=== PATIENT | female | born 1950 | race Caucasian/White ===

== ENCOUNTER → 2018-08-03 14:16 | Outpatient (CLI) | payer MEDICARE, SELFPAY ==
[2018-08-03 15:32] LABS: Absolute Lymphocyte Count 1.39 X10^3/ul (0.83-4.51); Absolute Neutrophil Count 4.5 X10^3/uL (2.0-7.7); Basophil# 0.02 X10^3/uL; Basophil% 0.3 % (0-1); Eosinophils% 2.9 % (0-5); Hematocrit 43.7 % (37-47); Hemoglobin 14.4 g/dl (12.0-15.0); Lymphocyte # 1.39 X10^3/ul (4.0); Lymphocyte % 20.4 % (19-41); Mean Corpuscular Hgb 30.5 pg (27.0-32.0); Mean Corpuscular Volume 92.6 fL (81-99); Mean Platelet Vol. 10.8 fl (6.2-12.0); Monocyte# 0.68 X10^3/uL; Neutrophil # 4.49 X10^3/uL (2.7-7.7); POSITIVE COUNT NO; POSITIVE DIFFERENTIAL NO; POSITIVE MORPHOLOGY NO; Platelet Count 264 K/mm3 (150-450); RBC Distribution Width CV 12.4 % (11.6-14.6); RBC Distribution Width SD 41.2 fl (35.1-43.9); Red Blood Count 4.72 M/mm3 (4.2-5.4); White Blood Count 6.8 K/mm3 (4.4-11.0)
[2018-08-03 15:42] LABS: ALB/GLOB Ratio 0.8 RATIO (0.9-2.4); AST(SGOT) 15 U/L (15-37); Alanine Aminotransfer ALT/SGPT 18 U/L (13-56); Albumin, Serum 3.4 g/dL (3.2-5.0); Alkaline Phosphatase 101 U/L (45-117); Anion Gap 9 (5-15); BUN 29 mg/dL (7-18); BUN/Creat Ratio 30.8 RATIO (10-20); Calcium,Total 9.3 mg/dL (8.5-10.1); Chloride 102 mmol/L (98-107); Creatinine, Serum 0.94 mg/dL (0.55-1.02); EST Glomerular Filtration Rate 63 mL/min (>60); Est Glom Filt Rate - Afr Amer 76 mL/min (>60); Globulin 4.5 g/dL (2.2-4.2); Glucose 99 mg/dL (74-106); Protein, Total 7.9 g/dL (6.4-8.2); Sodium Level 139 mmol/L (136-145)
[2018-08-03 15:43] LABS: Erythrocyte Sedimentation Rate 22 mm/hr (0-30)
== END ==
PROVIDERS: Family Provider Internal Medicine; PCP Internal Medicine; Referring Provider Internal Medicine Rheumatology; Visit Provider Internal Medicine Rheumatology
DX: Z79.899 Other long term (current) drug therapy (principal)
CPT/HCPCS: 36415; 80053; 85025; 85652; 86140

== ENCOUNTER → 2018-08-03 18:09 | Outpatient (CLI) | payer MEDICARE, SELFPAY ==
[2018-08-03 18:28] LABS: RBC /Synovial Fluid 0.079 10^6/uL (0); Synovial Fld Mononuclear WBC % 7.8 %; Synovial Fld Polynuclear WBC % 92.2 %
[2018-08-03 18:57] LABS: AUTO B FLUID DILUENT BKGD CT WBC <0.1 RBC <0.01 (W<.1,R<.01); Appearance /Synovial Fluid Cloudy (CLEAR); Body Fluid QC Type(s) BF1Q,BF2Q; Color / Synovial Fluid Red (Pale Yellow); Lymph 7 %; Neutrophil 93 % (0-25); Viscosity / Synovial Fluid Sl. Viscous (HIGH)
[2018-08-03 18:58] LABS: Source / Synovial Fluid RIGHT KNEE
[2018-08-04 12:36] LABS: Pathologist Comment Reviewed
== END ==
PROVIDERS: Family Provider Internal Medicine; PCP Internal Medicine; Referring Provider Internal Medicine Rheumatology; Visit Provider Internal Medicine Rheumatology
DX: M06.09 Rheumatoid arthritis without rheumatoid factor, multiple sites (principal); M18.0 Bilateral primary osteoarthritis of first carpometacarpal joints; M25.561 Pain in right knee; M25.552 Pain in left hip; H40.9 Unspecified glaucoma; M47.897 Other spondylosis, lumbosacral region; Z79.899 Other long term (current) drug therapy
CPT/HCPCS: 36415; 80053; 85025; 85652; 86140; 89050; 89051

== ENCOUNTER → 2018-08-26 10:00 | Outpatient (CLI) | payer MEDICARE, SELFPAY ==
--- NOTE | 2018-08-26 10:06 | BD_ITS ---
STUDY: DUAL ENERGY X-RAY ABSORPTIOMETRY / DXA REASON FOR EXAM: Female, 67 years old. The patient is postmenopausal. Loss of height. TECHNIQUE: Bone Mineral Density (BMD) measurements of lumbar spine and bilateral hips were obtained. COMPARISON: None. FINDINGS: Lumbar Spine (L1-L4): g/cm2 (1.214) / T-score (0.4) / Z-score (2.1) Findings are suggestive of normal bone density with a low fracture risk. Increased thoracic kyphosis. Left Femur Total: g/cm2 (0.917) / T-score (-0.7) / Z-score (0.7) Left Femoral Neck: g/cm2 (0.851) / T-score (-1.3) / Z-score (0.3) Right Femur Total: g/cm2 (0.869) / T-score (-1.1) / Z-score (0.3) Right Femoral Neck: g/cm2 (0.785) / T-score (-1.8) / Z-score (-0.2) BD/Dexa Bone Density Study IMPRESSION: The patient is considered osteopenic as outlined below according to World [employer] Organization (WHO) criteria with a moderate fracture risk. Reference Information: The T-score is the number of standard deviations above or below the standard which is normal for young adults at their peak bone mineral density. The World Health Organization (WHO) interprets the T-scores as follows: Above -1 Normal bone density Between -1 and -2.5 Osteopenia Equal to / or below -2.5 Osteoporosis As a practical clinical guideline, osteopenia may be graded as follows: Mild -1 through -1.5 Moderate -1.6 through -2.0 Severe -2.1 through -2.4 The Z-score is the number of standard deviations above or below age-matched controls. A Z-score of less than -1.5 would be considered abnormal. References: 1. NIH Osteoporosis and Related Bone Diseases http://www.osteo.org 2. International Society for Clinical Densitometry http://www.iscd.org 3. National Osteoporosis Foundation http://www.nof.org Electronically Signed: Juanpablo Perkins MD at 8:25 EST Tel [phone], Service support ,
== END ==
PROVIDERS: Family Provider Internal Medicine; PCP Internal Medicine; Visit Provider Internal Medicine
DX: Z78.0 Asymptomatic menopausal state (principal)
CPT/HCPCS: 77080

== ENCOUNTER → 2018-09-03 08:42 | Outpatient (CLI) | payer MEDICARE, SELFPAY ==
--- NOTE | 2018-09-03 10:10 | BI_ITS ---
MAMMOGRAPHY - BILATERAL SCREENING REASON FOR EXAM: Female, 67 years old. Routine annual screening examination. PERTINENT HISTORY: Non-contributory. Remote left stereotactic breast biopsy. TECHNIQUE: Digital bilateral breast radu (3D mammographic acquisition) in the CC and MLO projections. 2-D mediolateral oblique (MLO) and craniocaudad (CC) views of both breasts were obtained. CAD: Full Field Digital Mammography with Computer Added Detection was performed. COMPARISON: Comparison is made with prior study dated November 05, 2012 and December 26, 2004. FINDINGS: Breast Composition: There are scattered areas of fibroglandular density. There are no dominant masses or suspicious calcifications. There is a 1.3 cm x 1.5 cm nodular density in the retroareolar region of the right breast. Correlation with ultrasound is recommended. No other significant abnormalities are identified. BI/SCREENING MAMM (CAD), BILAT IMPRESSION: Questionable 1.3 cm x 1.5 cm nodular density in the retroareolar region of the right breast as described. Correlation with ultrasound is recommended. ASSESSMENT CATEGORY: BIRADS Category 0: Incomplete. Need additional imaging evaluation. A letter regarding these results will be sent to the patient by the facility within 30 days. Approximately 10% of breast cancers are not detected by mammography. A normal mammogram should not delay biopsy of a clinically suspicious abnormality. [id number] Electronically Signed: Juanpablo Perkins MD at 11:35 EST Tel [phone], Service support ,
== END ==
PROVIDERS: Family Provider Internal Medicine; PCP Internal Medicine; Referring Provider Internal Medicine; Visit Provider Internal Medicine
DX: Z12.31 Encounter for screening mammogram for malignant neoplasm of breast (principal); Z78.0 Asymptomatic menopausal state
CPT/HCPCS: 77063; 77067

== ENCOUNTER → 2018-09-07 07:41 | Outpatient (CLI) | payer MEDICARE, SELFPAY ==
--- NOTE | 2018-09-07 07:45 | US_ITS ---
STUDY: ULTRASOUND BREAST - RIGHT REASON FOR EXAM: Female, 67 years old. Abnormal screening mammogram. TECHNIQUE: Axial and longitudinal images of the RIGHT breast were performed with a high resolution ultrasound transducer. COMPARISON: Comparison is made with prior mammogram dated September 03, 2018. FINDINGS: RIGHT Breast: This evidence of a dilated retroareolar ducts. No solid or cystic mass lesion is seen. US/Breast Limited Unilateral IMPRESSION: The mammographic abnormality corresponds to dilated retroareolar ducts. Routine mammographic follow-up is recommended. ASSESSMENT CATEGORY: BIRADS Category 2: Benign. A letter regarding these results will be sent to the patient by the facility within 30 days. Electronically Signed: Juanpablo Perkins MD at 8:06 EST Tel [phone], Service support ,
[2018-09-07 09:44] LABS: Cholesterol 204 mg/dL (200); Glucose 86 mg/dL (74-106); High Density Lipoprotein 80 mg/dL; Triglycerides 59 mg/dL
[2018-09-07 09:45] LABS: Very Low Density Lipoprotein 12 mg/dL (5-40)
== END ==
PROVIDERS: Family Provider Internal Medicine; PCP Internal Medicine; Referring Provider Internal Medicine; Visit Provider Internal Medicine
DX: R92.2 Inconclusive mammogram (principal); Z83.3 Family history of diabetes mellitus; Z13.220 Encounter for screening for lipoid disorders
CPT/HCPCS: 36415; 76642; 80061; 82947

== ENCOUNTER → 2018-09-20 09:39 | Outpatient (CLI) | payer MEDICARE, SELFPAY ==
[2018-09-20 12:15] LABS: Absolute Lymphocyte Count 1.21 X10^3/ul (0.83-4.51); Absolute Neutrophil Count 5.8 X10^3/uL (2.0-7.7); Basophil# 0.02 X10^3/uL; Basophil% 0.2 % (0-1); Eosinophil# 0.29 X10^3/uL; Eosinophils% 3.6 % (0-5); Hematocrit 41.1 % (37-47); Hemoglobin 13.3 g/dl (12.0-15.0); Lymphocyte # 1.21 X10^3/ul (4.0); Mean Corp Hgb Conc 32.4 g/gl (32-36); Mean Corpuscular Hgb 31.1 pg (27.0-32.0); Mean Corpuscular Volume 96.3 fL (81-99); Mean Platelet Vol. 11.4 fl (6.2-12.0); Monocyte# 0.74 X10^3/uL; Monocyte% 9.1 % (0-10); Neutrophil # 5.78 X10^3/uL (2.7-7.7); Neutrophil % 71.5 % (47-70); Platelet Count 289 K/mm3 (150-450); RBC Distribution Width CV 14.1 % (11.6-14.6); RBC Distribution Width SD 47.2 fl (35.1-43.9); Red Blood Count 4.27 M/mm3 (4.2-5.4); White Blood Count 8.1 K/mm3 (4.4-11.0)
[2018-09-20 12:22] LABS: POSITIVE COUNT NO; POSITIVE DIFFERENTIAL NO; POSITIVE MORPHOLOGY NO
[2018-09-20 12:37] LABS: ALB/GLOB Ratio 0.8 RATIO (0.9-2.4); AST(SGOT) 16 U/L (15-37); Alanine Aminotransfer ALT/SGPT 19 U/L (13-56); Albumin, Serum 3.3 g/dL (3.2-5.0); Alkaline Phosphatase 92 U/L (45-117); Anion Gap 9 (5-15); BUN 13 mg/dL (7-18); BUN/Creat Ratio 14.2 RATIO (10-20); Chloride 104 mmol/L (98-107); Creatinine, Serum 0.92 mg/dL (0.55-1.02); EST Glomerular Filtration Rate 65 mL/min (>60); Est Glom Filt Rate - Afr Amer 78 mL/min (>60); Globulin 4.2 g/dL (2.2-4.2); Glucose 83 mg/dL (74-106); Potassium 3.9 mmol/L (3.5-5.1); Protein, Total 7.5 g/dL (6.4-8.2); Sodium Level 142 mmol/L (136-145)
--- OUTSIDE RECORDS SUMMARY | 2018-11-13 14:11 | XMS RPT_ITS | Continuity of Care Document ---
:1950 Author Organization [facility] Address [address] [place] [address] Phone Care Team Providers Name Role Phone Hyacinth Aguilar DO Unavailable Dudley Marmolejo MD Unavailable Dr. George Fitzpatrick Unavailable Cliff HANKS, Monika Rivas Unavailable Unavailable Katy Noriega Unavailable Unavailable Indigo Castaneda CNP Unavailable Unavailable Unavailable Problems Name Dates Details Abnormal ultrasound of breast (R92.8, 793.89) Comments: Dilated retroareolar ducts, discussed with pt on , per KF send to Jaleel for opinion, pt refusing at this time, reviewed in detail with pt, copy given to pt of result Status: Active Annual Medicare Phyiscal WITHOUT abnormal findings (Renamed from Encounter for general adult medical examination without abnormal findings) (Z00.00, V70.9) Status: Active Arthritis (M19.90, 716.90) Status: Active Arthritis, rheumatic, acute or subacute (I00, 390) Comments: new dx Status: Active BMI 30.0-30.9,adult (Z68.30, V85.30) Status: Active Body mass index 29.0-29.9, adult (Z68.29, V85.25) Status: Active Breast cancer screening (Z12.39, V76.10) Status: Active Breast Mass; Local Excision Status: Active Section Comments: Status: Active Colon cancer screening (Renamed from Encounter for screening for malignant neoplasm of colon) (Z12.11, V76.51) Comments: 2014 [facility]-- noncancerous poylp and repeat in 3yrs Status: Active Deliveries (Parity) Comments: 2 Status: Active Encounter for screening for lipid disorder (Z13.220, V77.91) Status: Active Encounter for screening mammogram for breast cancer (Renamed from Encounter for screening mammogram for malignant neoplasm of breast) (Z12.31, V76.12) Status: Active Family history of diabetes mellitus (Z83.3, V18.0) Status: Active Non-smoker (Z78.9, V49.89) Status: Active Osteopenia (M85.80, 733.90) Status: Active Ovary sx Comments: 20's Status: Active Pain in unspecified joint (M25.50, 719.40) Status: Active Post-menopausal (Z78.0, V49.81) Status: Active Pregnancies () Comments: 2 Status: Active Tonsillectomy Status: Active Unspecified hearing loss, unspecified ear (H91.90, 389.9) Status: Active Vitamin D deficiency (E55.9, 268.9) Comments: does not want d level at this time Status: Active Medications Name Dates Details FOLIC ACID, 1MG (Oral Tablet) 1 Tablet qd for 90 days Refills: 0 Ordered:05-Nov-2012 Etta Aguilar DO, DO, Kathleen Start : 05-Nov-2012 Active Hydroxychloroquine Sulfate 200 MG Oral Tablet 1 (one) Tablet two times daily for 30 days Quantity: 90 {Tablet} Refills: 0 Ordered:15-Sep-2018 Indigo Castaneda CNP Start : 15-Sep-2018 Active METHOTREXATE, 2.5MG (Oral Tablet) 6 Tablet q week for 30 days Refills: 0 Ordered:05-Nov-2012 Etta Aguilar DO, DO, Kathleen Start : 05-Nov-2012 Active MULTIVITAMIN (Oral Liquid) for 0 days Refills: 0 Ordered:19-Aug-2018 Soheila Parikh LPNActive PREDNISONE, 10MG (Oral Tablet) 1 Tablet prn for 90 days Refills: 0 Ordered:05-Nov-2012 Lesvia FELIXEtta DO, Kathleen Start : 05-Nov-2012 Active VITAMIN D (CHOLECALCIFEROL), 400UNIT (Oral Tablet Chewable) 1 Tablet Chewable qd for 90 days Refills: 0 Ordered:05-Nov-2012 Lesvia FELIXEtta DO, Kathleen Start : 05-Nov-2012 Active Vitamin D3 2000 UNIT Oral Tablet 1 (one) Tablet daily for 0 days Quantity: 30 {Tablet} Refills: 0 Ordered:15-Sep-2018 Indigo Castaneda CNP Start : 15-Sep-2018 Active No Known Historical Medications PREDNISONE, 20MG (Oral Tablet) tad Tablet for 0 days Refills: 0 Ordered:05-Nov-2012 Soheila Parikh LPN Start : 22-Jun-2009 End : 05-Nov-2012 Inactive Comments:1 tab bid for 2 days then 1 tab daily for 4 days then 1/2 tab daily a day for 4 daysdispense sufficent quantity VICODIN ES, 7.5-750MG (Oral Tablet) 1 (one) Tablet Q 6hr/PRN for 0 days Quantity: 30 {Tablet} Refills: 0 Ordered:05-Nov-2012 Soheila Parikh LPN Start : 22-Jun-2009 End : 05-Nov-2012 Inactive Allergies and Adverse Reactions Name Dates Details No Known Allergies (Allergy) Status: Active Past Medical History Name Dates Details Pain of upper extremity, unspecified laterality (M79.603, 729.5) Comments: wrist Status: Inactive as of 22-Jun-2009 Screening for HPV (human papillomavirus) (Z11.51, V73.81) Status: Inactive as of 19-Aug-2018 Well woman exam (Z00.00, V70.0) Status: Inactive as of 19-Aug-2018 Procedures Date Value Details 07-Sep-2018 Breast Limited Unilateral Result: Comments: See Note; NOTES: [facility] Imaging Services [address] [place] [address] Breast Limited Unilateral MR#: [id number] Acct: [id number] Name: SULEIMAN LI Rep #: [id number] : 1950 F 67 From: Juanpablo Perkins MD PCP: Hyacinth Aguilar DO Status: REG CLI Study: Breast Limited Unilateral Date of Exam: 09/07/18 Exam# [id number] Ordering Dr: Hyacinth Aguilar DO STUDY: ULTRASOUND BREAST - RIGHT REASON FOR EXAM: Female, 67 years old. Abnormal screening mammogram. TECHNIQUE: Axial and longitudinal images of the RIGHT breast were performed with a high resolut ion ultrasound transducer. COMPARISON: Comparison is made with prior mammogram dated September 03, 2018. FINDINGS: RIGHT Breast: This evidence of a dilated retroare olar ducts. No solid or cystic mass lesion is seen. US/Breast Limited Unilateral IMPRESSION: The mammographic abnormality corresponds to dilated retroareolar ducts. Routine mammographic follow-up is recommended. ASSESSMENT CATEGORY: BIRADS Category 2: Benign. A letter regarding these results will be sent to t he patient by the facility within 30 days. Electronically Signed: Juanpablo Perkins MD at 8:06 EST Tel [phone], Service support , CC: Hyacinth Aguilar DO Senior Infrastructure Engineer: Signed 03-Sep-2018 SCREENING MAMM (CAD), BILAT Result: Comments: See Note; NOTES: [facility] Imaging Services [address] [place] [address] SCREENING MAMM (CAD), BILAT MR#: [id number] Acct: [id number] Name: SULEIMAN LI Rep #: [id number] : 1950 F 67 From: Juanpablo Perkins MD PCP: Hyacinth Aguilar DO Status: REG CLI Study: SCREENING MAMM (CAD), BILAT Date of Exam: 09/03/18 Exam# [id number] Ordering Dr: Hiram Aguilar DO MAMMOGRAPHY - BILATERAL SCREENING REASON FOR EXAM: Female, 67 years old. Routine annual screening examination. PERTINENT HISTORY: Non-contributory. Remote left stereotactic breast biopsy. TECH NIQUE: Digital bilateral breast radu (3D mammographic acquisition) in the CC and MLO projections. 2-D mediolateral oblique (MLO) and craniocaudad (CC) views of both breasts were obtained. CAD: Full Fiel d Digital Mammography with Computer Added Detection was performed. COMPARISON: Comparison is made with prior study dated November 05, 2012 and December 26, 2004. FINDIN GS: Breast Composition: There are scattered areas of fibroglandular density. There are no dominant masses or suspicious calcifications. There is a 1.3 cm x 1.5 cm nodular density in the retroareolar re gion of the right breast. Correlation with ultrasound is recommended. No other significant abnormalities are identified. BI/SCREENING MAMM (CAD) , BILAT IMPRESSION: Questionable 1.3 cm x 1.5 cm nodular density in the retroareolar region of the right breast as described. Correlation with ultrasound is recommended. ____ ASSESSMENT CATEGORY: BIRADS Category 0: Incomplete. Need additional imaging evaluation. A letter regarding these results will be sent to the patient by the facility within 30 days. Approximately 10% of breast cancers are not detected by mammography. A normal mammogram should not delay biopsy of a clinically suspicious abnormality. [id number] Electronically Signed: Juanpablo Perkins MD 9 at 11:35 EST Tel [phone], Service support , CC: Hyacinth Aguilar DO Senior Infrastructure Engineer: Signed 26-Aug-2018 Dexa Bone Density Study Result: Comments: See Note; NOTES: [facility] Imaging Services [address] [place] [address] Dexa Bone Density Study MR#: [id number] Acct: [id number] Name: SULEIMAN LI Rep #: [id number] : 1950 F 67 From: Juanpablo Perkins MD PCP: Hyacinth Aguilar DO Status: REG CLI Study: Dexa Bone Density Study Date of Exam: 08/26/18 Exam# [id number] Ordering Dr: Hyacinth Aguilar TUDY: DUAL ENERGY X-RAY ABSORPTIOMETRY / DXA REASON FOR EXAM: Female, 67 years old. The patient is postmenopausal. Loss of height. TECHNIQUE: Bone Mineral Density (BMD) measurements of lumbar spine an d bilateral hips were obtained. COMPARISON: None. FINDINGS: Lumbar Spine (L1-L4): g/cm2 (1.214) / T-score (0.4) / Z-score (2.1) Findings are suggestive of normal b one density with a low fracture risk. Increased thoracic kyphosis. Left Femur Total: g/cm2 (0.917) / T-score (-0.7) / Z-score (0.7) Left Femoral Neck: g/cm2 (0.851) / T-score (-1.3) / Z-score (0.3) Rig ht Femur Total: g/cm2 (0.869) / T-score (-1.1) / Z-score (0.3) Right Femoral Neck: g/cm2 (0.785) / T-score (-1.8) / Z-score (-0.2) BD/Dexa Bone Density Study IMPRESSION: The patient is considered osteopenic as outlined below according to World Simone Organization (WHO) criteria with a moderate fracture risk. Reference Information: The T-score is the number of standard deviations above or below the standard which is normal for young adults at their peak bone mineral density. The World Health Organization (WH O) interprets the T-scores as follows: Above -1 Normal bone density Between - 1 and -2.5 Osteopenia Equal to / or below -2.5 Osteoporosis As a practical clinical guideline, osteopenia may be graded as follows: Mild -1 through -1.5 Moderate -1.6 through -2.0 Severe -2.1 through - 2.4 The Z-score is the number of standard deviations above or below age-matched controls. A Z-score of less than -1.5 would be considered abnormal. References: 1. NIH Osteoporosis and Related Bone Diseases http://www.osteo.org 2. International Society for Clinical Densitometry http://www.iscd.org 3. National Osteoporosis F oundation http://www.nof.org Electronically Signed: Juanpablo Perkins MD at 8:25 EST Tel [phone], Service support , CC: Hyacinth Aguilar DO Senior Infrastructure Engineer: Signed 20-Mar-2017 Hip 2-3 Views with Pelvis Result: Comments: See Note; NOTES: [facility] Imaging Services [address] [place] [address] Verdana 4d Hip 2-3 Views with Pelvis MR#: [id number] Acct: [id number] Name: SULEIMAN LI Rep #: [id number] : 1950 F 66 From: Juanpablo Perkins MD PCP: Hyacinth Aguilar DO Status: [facility] CLI Study: Hip 2-3 Views with Pelvis Date of Exam: 03/20/17 Exam# [id number] Ordering Dr: Maria C Maurer i, MD STUDY: X-RAY - PELVIS AND LEFT HIP REASON FOR EXAM: Female, 66 years old. History of rheumatoid arthritis. TECHNIQUE: Radiological exam, hip, unilateral, with pelvis when performed; 2 or 3 views. COMPARISON: None. FINDINGS: There is a non-specific bowel gas pattern. Normal visualized soft tissue structures. Normal bilateral iliac wings, sacroiliac joints and visualized sacrum. Normal bilateral superior and inferior pubic rami. Normal pubic symphysis. Normal bilateral ischial tuberosities. There is prominence of the greater trochanter of the pro ximal femur. Normal acetabulum. There is mild articular joint space narrowing of the hip. RAD/Hip 2-3 Views with Pelvis IMPRESSION: Mild joint sp syed narrowing. Prominence of the greater trochanter. Electronically Signed: Juanpablo Perkins MD at 13:35 EDT Tel [phone], Service support , CC: Elie Aguilar DO; Maria C Juares MD Senior Infrastructure Engineer: Signed 20-Mar-2017 Pelvis 1 or 2 Views Result: Comments: See Note; NOTES: [facility] Imaging Services [address] [place] [address] Verda 4d Pelvis 1 or 2 Views MR#: [id number] Acct: [id number] Name: SULEIMAN LI Rep #: [id number] : 1950 F 66 From: Juanpablo Perkins MD PCP: Hyacinth Aguilar DO Status: REG CLI Study: Pelvis 1 or 2 Views Date of Exam: 03/20/17 Exam# [id number] Ordering Dr: Maria C Juares MD STUDY: X-RAY - PELVIS REASON FOR EXAM: Female, 66 years old. Pain. History of rheumatoid arthritis. TECHNIQUE: One view of the pelvis was obtained. COMPARISON: None. ____ FINDINGS: There is a non-specific bowel gas pattern. Normal visualized soft tissue structures. Degenerative changes in the lower lumbar spine. Normal bilateral iliac wings, sacroiliac joints and visualized sacrum. Normal visualized bilateral superior and inferior pubic rami. Normal pubic symphysis. Normal ischial tuberosities. Normal visualized right femoral head. Normal right acetabulum. Norm al right hip joint. Normal visualized left femoral head. Normal left acetabulum. Normal left hip joint. RAD/Pelvis 1 or 2 Views IMPRESSION: Norm al x-ray examination of the pelvis. Electronically Signed: Juanpablo Perkins MD at 13:34 EDT Tel [phone], Service support , CC: Hyacinth Aguilar DO ; Maria C Juares MD Senior Infrastructure Engineer: Signed Immunization Name Dates Details Tdap (7 years and up) on: 01-Jun-2009 Comments: Lot #[id number]-left deltoidDose0.5mlgiven by Germania Godfrey LPN Family History Unknown Family Member Name Dates Details Diabetes Mellitus Comments: Father, Brother Status: Active Heart Disease Comments: Father Status: Active Skin Cancer Comments: Brother Status: Active Social History Name Dates Details Alcohol Use Comments: Occasional alcohol use Status: Active Caffeine Use Comments: qd Status: Active Exercise History Comments: Inactive Status: Active Living Situation Comments: Lives alone Status: Active 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 No Drug Use Status: Active Non Smoker/No Tobacco Use Status: Active Pets/Animals Comments: none Status: Active Vital Signs Date Test Result Details :10 Temperature 97.3 f Comments: Method: Temporal Pulse 72 /min Comments: Pattern: Regular Respiration Rate 17 /min Comments: Pattern: Unlabored O2 SAT 98 % Comments: Room air BP Systolic 112 mm[Hg] Comments: Patient Position: Sitting; Cuff Location: Left Arm; Cuff Size: Standard BP Diastolic 72 mm[Hg] Comments: Patient Position: Sitting; Cuff Location: Left Arm; Cuff Size: Standard Weight 166.5 lb Height 62 in Body Mass Index Calculated 30.45 kg/m2 Body Surface Area Calculated 1.77 m2 [id number] Comments: Dr. Kulkarni and had a glaucoma test donehearing wn Pulse 80 /min Comments: Pattern: Regular Respiration Rate 18 /min Comments: Pattern: Unlabored O2 SAT 95 % Comments: Room air BP Systolic 118 mm[Hg] Comments: Patient Position: Sitting; Cuff Location: Left Arm; Cuff Size: Large BP Diastolic 70 mm[Hg] Comments: Patient Position: Sitting; Cuff Location: Left Arm; Cuff Size: Large Weight 163.25 lb Height 62 in Body Mass Index Calculated 29.86 kg/m2 Body Surface Area Calculated 1.75 m2 :06 Temperature 98.3 f Comments: Method: Oral Pulse 72 /min Comments: Pattern: Regular Respiration Rate 18 /min Comments: Pattern: Unlabored BP Systolic 124 mm[Hg] Comments: Patient Position: Sitting; Cuff Location: Left Arm; Cuff Size: Large BP Diastolic 78 mm[Hg] Comments: Patient Position: Sitting; Cuff Location: Left Arm; Cuff Size: Large Weight 166.3125 lb Height 62 in Body Mass Index Calculated 30.42 kg/m2 Body Surface Area Calculated 1.77 m2 :24 Pulse 64 /min Comments: Pattern: Regular Respiration Rate 20 /min Comments: Pattern: Unlabored BP Systolic 128 mm[Hg] Comments: Patient Position: Sitting; Cuff Location: Left Arm; Cuff Size: Large BP Diastolic 80 mm[Hg] Comments: Patient Position: Sitting; Cuff Location: Left Arm; Cuff Size: Large Weight 157.1875 lb Height 62 in Body Mass Index Calculated 28.75 kg/m2 Body Surface Area Calculated 1.73 m2 Head Circumference 0.00 cm :54 Pulse 60 /min Comments: Pattern: Regular Respiration Rate 20 /min Comments: Pattern: Unlabored BP Systolic 120 mm[Hg] Comments: Patient Position: Sitting; Cuff Location: Left Arm; Cuff Size: Large BP Diastolic 68 mm[Hg] Comments: Patient Position: Sitting; Cuff Location: Left Arm; Cuff Size: Large Weight 159.375 lb Height 62 in Body Mass Index Calculated 29.15 kg/m2 Body Surface Area Calculated 1.74 m2 Head Circumference 0.00 cm :33 Pulse 64 /min Comments: Pattern: Regular Respiration Rate 20 /min Comments: Pattern: Unlabored BP Systolic 118 mm[Hg] Comments: Patient Position: Sitting; Cuff Location: Left Arm; Cuff Size: Large BP Diastolic 78 mm[Hg] Comments: Patient Position: Sitting; Cuff Location: Left Arm; Cuff Size: Large Weight 157.125 lb Height 62 in Body Mass Index Calculated 28.74 kg/m2 Body Surface Area Calculated 1.73 m2 Head Circumference 0.00 cm Results Date Description Value Details :45 CBC W/Diff, Automated Comments: [facility] [id number] [place], [place], [id number] Absolute Lymph 1.21 {X10_3/ul} (Normal) Range: 0.83-4.51 Absolute Neut 5.8 {X10_3/uL} (Normal) Range: 2.0-7.7 IM GRAN % 0.600 % (Normal) Range: 0.0-0.9 Comments: IG% - Immature Granulocytes (promyelocytes, myelocytes andmetamyelocytes) > 1% indicates that a LEFT SHIFT is Present. BASO% 0.2 % (Normal) Range: 0-1 EO% 3.6 % (Normal) Range: 0-5 MONO% 9.1 % (Normal) Range: 0-10 LY% 15.0 % (Abnormal) Range: 19-41 NEUT% 71.5 % (Abnormal) Range: 47-70 MPV 11.4 fL (Normal) Range: 6.2-12.0 PLT 289 K/mm3 (Normal) Range: 150-450 RDW SD 47.2 fL (Abnormal) Range: 35.1-43.9 RDW CV 14.1 % (Normal) Range: 11.6-14.6 MCHC 32.4 {g/gl} (Normal) Range: 32-36 MCH 31.1 pg (Normal) Range: 27.0-32.0 MCV 96.3 fL (Normal) Range: 81-99 HCT 41.1 % (Normal) Range: 37-47 HGB 13.3 g/dL (Normal) Range: 12.0-15.0 RBC 4.27 {M/mm3} (Normal) Range: 4.2-5.4 WBC 8.1 K/mm3 (Normal) Range: 4.4-11.0 :45 Comprehensive Metabolic Profil Comments: [facility] [id number] [place], [place], [id number] GAP 9 (Normal) Range: 5-15 CO2 29.0 mmol/L (Normal) Range: 21.0-32.0 CL 104 mmol/L (Normal) Range: 98-107 K 3.9 mmol/L (Normal) Range: 3.5-5.1 NA 142 mmol/L (Normal) Range: 136-145 T BILI 0.40 mg/dL (Normal) Range: 0.20-1.00 ALT 19 U/L (Normal) Range: 13-56 ALK P 92 U/L (Normal) Range: 45-117 AST 16 U/L (Normal) Range: 15-37 CA 9.0 mg/dL (Normal) Range: 8.5-10.1 A/G 0.8 {RATIO} (Abnormal) Range: 0.9-2.4 GLOB 4.2 g/dL (Normal) Range: 2.2-4.2 ALB 3.3 g/dL (Normal) Range: 3.2-5.0 T PROT 7.5 g/dL (Normal) Range: 6.4-8.2 BUN/CRE 14.2 {RATIO} (Normal) Range: 10-20 EST GFR - AA 78 mL/min (Normal) Comments: GFR Calc EST GFR 65 mL/min (Normal) Comments: Non- GFR Calc CREAT,SERUM 0.92 mg/dL (Normal) Range: 0.55-1.02 Comments: The validity of the calculated GFR AND GFRAA in patients over70 years has not been determined. Clinical correlation isessential. BUN 13 mg/dL (Normal) Range: 7-18 GLU 83 mg/dL (Normal) Range: 74-106 Comments: Please note revised GLUCOSE reference range brmbaauki26/02/2018. :45 CRP Comments: [facility] [id number] [place], [place], [address] C-REACTIVE PROT 11.70 mg/L (Abnormal) Range: 0.0-3.0 Comments: C-Reactive Protein (CRP) provides useful information for thediagnosis, therapy and monitoring of inflammatory processesand associated diseases. For the evaluation of Relative Riskfor Cardiovascular Dise ase, a High Sensitivity CRP (HSCRP)should be ordered. :04 Glucose Comments: [facility] [id number] [place], [place], [address] GLU 86 mg/dL (Normal) Range: 74-106 Comments: Please note revised GLUCOSE reference range iaxsrocqz88/02/2018. 83-Gwe-18897:04 Lipid Profile Comments: [facility] [id number] [place], [id number] VLDL 12 mg/dL (Normal) Range: 5-40 LDL 112 mg/dL (Normal) Range: 0-130 HDL 80 mg/dL (Normal) Comments: The drugs N-Acetylcysteine and Metamizole may falselydepress this assay. Reference Range HDL <40 mg/dL Low HDL Cholesterol HDL >or= 60 mg/dL High HDL Cholesterol TRIG 59 mg/dL (Normal) Comments: The drugs N-Acetylcysteine and Metamizole may falselydepress this assay.Serum Triglycerides Reference Interval Normal <150 mg/dL Borderline high 150 - 199 mg/dL High 200 - 499 mg/dL Very High > or = 500 mg/dL CHOL 204 mg/dL (Abnormal) Comments: <200 mg/dL Desirable 200-240 mg/dL Borderline >240 mg/dL High Risk 52-Hfg-701044:14 Synovial Fluid RBC, WBC AND Comments: [facility] [id number] [place], [place], [address] Diff PATH COM/SYFL Reviewed (Normal) Comments: Negative for malignant cells.Acute inflammation.Nicolas Quinn M.D. 08/04/18 AMENDED REPORT 08/04/18 1235 PATH COM/SYFL previously reported as: May follow LYMPH 7 % (Normal) NEUTROPHIL 93 % (Abnormal) Range: 0-25 SYBF MN WBC% 7.8 % (Normal) SYBF PMN WBC# 14.629 {10_3/ul} (Normal) SYBF PMN WBC% 92.2 % (Normal) SYNOVIAL WBC 15.2140 {10_3uL} (Abnormal) Range: 0.000-0.002 SYNOVIAL RBC 0.079 {10_6/uL} (Abnormal) SYN Tot Cell Ct 15.2360 {10_3_uL} Range: 0.000-0.000 (Abnormal) Comments: This is the Total Number of Nucleated Cell Types in the BodyFluid. SYNOVIAL GILDA. Cloudy (Normal) SYNOVIAL COLOR Red (Normal) VISCOSITY/SYFL Sl. Viscous (Normal) SYNOVIAL SOURCE RIGHT KNEE (Normal) 61-Rph-281315:27 CBC W/Diff, Automated Comments: [facility] [id number] [place], [place], [id number] Absolute Lymph 1.39 {X10_3/ul} (Normal) Range: 0.83-4.51 Absolute Neut 4.5 {X10_3/uL} (Normal) Range: 2.0-7.7 IM GRAN % 0.400 % (Normal) Range: 0.0-0.9 Comments: IG% - Immature Granulocytes (promyelocytes, myelocytes andmetamyelocytes) > 1% indicates that a LEFT SHIFT is Present. BASO% 0.3 % (Normal) Range: 0-1 EO% 2.9 % (Normal) Range: 0-5 MONO% 10.0 % (Normal) Range: 0-10 LY% 20.4 % (Normal) Range: 19-41 NEUT% 66.0 % (Normal) Range: 47-70 MPV 10.8 fL (Normal) Range: 6.2-12.0 PLT 264 K/mm3 (Normal) Range: 150-450 RDW SD 41.2 fL (Normal) Range: 35.1-43.9 RDW CV 12.4 % (Normal) Range: 11.6-14.6 MCHC 33.0 {g/gl} (Normal) Range: 32-36 MCH 30.5 pg (Normal) Range: 27.0-32.0 MCV 92.6 fL (Normal) Range: 81-99 HCT 43.7 % (Normal) Range: 37-47 HGB 14.4 g/dL (Normal) Range: 12.0-15.0 RBC 4.72 {M/mm3} (Normal) Range: 4.2-5.4 WBC 6.8 K/mm3 (Normal) Range: 4.4-11.0 46-Myu-901586:27 Comprehensive Metabolic Profil Comments: [facility] [address] [place], [place], [id number] GAP 9 (Normal) Range: 5-15 CO2 28.0 mmol/L (Normal) Range: 21.0-32.0 CL 102 mmol/L (Normal) Range: 98-107 K 4.0 mmol/L (Normal) Range: 3.5-5.1 NA 139 mmol/L (Normal) Range: 136-145 T BILI 0.30 mg/dL (Normal) Range: 0.20-1.00 ALT 18 U/L (Normal) Range: 13-56 ALK P 101 U/L (Normal) Range: 45-117 AST 15 U/L (Normal) Range: 15-37 CA 9.3 mg/dL (Normal) Range: 8.5-10.1 A/G 0.8 {RATIO} (Abnormal) Range: 0.9-2.4 GLOB 4.5 g/dL (Abnormal) Range: 2.2-4.2 ALB 3.4 g/dL (Normal) Range: 3.2-5.0 T PROT 7.9 g/dL (Normal) Range: 6.4-8.2 BUN/CRE 30.8 {RATIO} (Abnormal) Range: 10-20 EST GFR - AA 76 mL/min (Normal) Comments: GFR Calc EST GFR 63 mL/min (Normal) Comments: Non- GFR Calc CREAT,SERUM 0.94 mg/dL (Normal) Range: 0.55-1.02 Comments: The validity of the calculated GFR AND GFRAA in patients over70 years has not been determined. Clinical correlation isessential. BUN 29 mg/dL (Abnormal) Range: 7-18 GLU 99 mg/dL (Normal) Range: 74-106 Comments: Please note revised GLUCOSE reference range facmgttwa75/02/2018. 06-Xop-287447:27 CRP Comments: [facility] [address] [place], [place], [address] C-REACTIVE PROT 19.10 mg/L (Abnormal) Range: 0.0-3.0 Comments: C-Reactive Protein (CRP) provides useful information for thediagnosis, therapy and monitoring of inflammatory processesand associated diseases. For the evaluation of Relative Riskfor Cardiovascular Dise ase, a High Sensitivity CRP (HSCRP)should be ordered. 58-Wih-863587:27 Erythrocyte Sed Rate Comments: [facility] [id number] [place], [address] SED RATE 22 mm/h (Normal) Range: 0-30 93-Hyn-040476:03 CBC W/Diff, Automated Comments: [facility] [address] [place], [address] Absolute Lymph 1.70 {X10_3/ul} (Normal) Range: 0.83-4.51 Absolute Neut 2.1 {X10_3/uL} (Normal) Range: 2.0-7.7 IM GRAN % 0.000 % (Normal) Range: 0.0-0.9 Comments: IG% - Immature Granulocytes (promyelocytes, myelocytes andmetamyelocytes) > 1% indicates that a LEFT SHIFT is Present. BASO% 0.5 % (Normal) Range: 0-1 EO% 3.7 % (Normal) Range: 0-5 MONO% 7.4 % (Normal) Range: 0-10 LY% 39.2 % (Normal) Range: 19-41 NEUT% 49.2 % (Normal) Range: 47-70 MPV 11.0 fL (Normal) Range: 6.2-12.0 PLT 218 K/mm3 (Normal) Range: 150-450 RDW SD 58.6 fL (Abnormal) Range: 35.1-43.9 RDW CV 17.5 % (Abnormal) Range: 11.6-14.6 MCHC 31.8 {g/gl} (Abnormal) Range: 32-36 MCH 29.3 pg (Normal) Range: 27.0-32.0 MCV 92.1 fL (Normal) Range: 81-99 HCT 37.1 % (Normal) Range: 37-47 HGB 11.8 g/dL (Abnormal) Range: 12.0-15.0 RBC 4.03 {M/mm3} (Abnormal) Range: 4.2-5.4 WBC 4.3 K/mm3 (Abnormal) Range: 4.4-11.0 [id number]-Ydm-[id number] Comprehensive Metabolic Profil Comments: [facility] [address] [place], [address] GAP 7 (Normal) Range: 5-15 CO2 28.0 mmol/L (Normal) Range: 21.0-32.0 CL 107 mmol/L (Normal) Range: 98-107 K 4.3 mmol/L (Normal) Range: 3.5-5.1 NA 142 mmol/L (Normal) Range: 136-145 T BILI 0.40 mg/dL (Normal) Range: 0.20-1.00 ALT 22 U/L (Normal) Range: 12-78 ALK P 95 U/L (Normal) Range: 45-117 AST 19 U/L (Normal) Range: 15-37 CA 8.6 mg/dL (Normal) Range: 8.5-10.1 A/G 1.0 {RATIO} (Normal) Range: 0.9-2.4 GLOB 3.6 g/dL (Abnormal) Range: 2.3-3.5 ALB 3.7 g/dL (Normal) Range: 3.4-5.0 T PROT 7.3 g/dL (Normal) Range: 6.4-8.2 BUN/CRE 20.1 {RATIO} (Abnormal) Range: 10-20 EST GFR - AA 81 mL/min (Normal) Comments: GFR Calc EST GFR 67 mL/min (Normal) Comments: Non- GFR Calc CREAT,SERUM 0.90 mg/dL (Normal) Range: 0.55-1.02 Comments: The validity of the calculated GFR AND GFRAA in patients over70 years has not been determined. Clinical correlation isessential. BUN 18 mg/dL (Normal) Range: 7-18 GLU 94 mg/dL (Normal) Range: 70-110 [id number]-Yzw-[id number]:50 CBC W/Diff, Automated Comments: [facility] [address] [place], [place], [id number] Absolute Lymph 1.21 {X10_3/ul} (Normal) Range: 0.83-4.51 Absolute Neut 3.1 {X10_3/uL} (Normal) Range: 2.0-7.7 IM GRAN % 0.000 % (Normal) Range: 0.0-0.9 Comments: IG% - Immature Granulocytes (promyelocytes, myelocytes andmetamyelocytes) > 1% indicates that a LEFT SHIFT is Present. BASO% 0.4 % (Normal) Range: 0-1 EO% 4.1 % (Normal) Range: 0-5 MONO% 11.0 % (Abnormal) Range: 0-10 LY% 23.7 % (Normal) Range: 19-41 NEUT% 60.8 % (Normal) Range: 47-70 MPV 12.0 fL (Normal) Range: 6.2-12.0 PLT 193 K/mm3 (Normal) Range: 150-450 RDW SD 45.2 fL (Abnormal) Range: 35.1-43.9 RDW CV 14.0 % (Normal) Range: 11.6-14.6 MCHC 31.7 {g/gl} (Abnormal) Range: 32-36 MCH 28.5 pg (Normal) Range: 27.0-32.0 MCV 90.1 fL (Normal) Range: 81-99 HCT 36.3 % (Abnormal) Range: 37-47 HGB 11.5 g/dL (Abnormal) Range: 12.0-15.0 RBC 4.03 {M/mm3} (Abnormal) Range: 4.2-5.4 WBC 5.1 K/mm3 (Normal) Range: 4.4-11.0 [id number]-[id number] Comprehensive Metabolic Profil Comments: [facility] [address] [place], [address] GAP 10 (Normal) Range: 5-15 CO2 25.0 mmol/L (Normal) Range: 21.0-32.0 CL 108 mmol/L (Abnormal) Range: 98-107 K 4.4 mmol/L (Normal) Range: 3.5-5.1 NA 143 mmol/L (Normal) Range: 136-145 T BILI 0.40 mg/dL (Normal) Range: 0.20-1.00 ALT 19 U/L (Normal) Range: 12-78 ALK P 97 U/L (Normal) Range: 45-117 AST 21 U/L (Normal) Range: 15-37 CA 8.5 mg/dL (Normal) Range: 8.5-10.1 A/G 1.0 {RATIO} (Normal) Range: 0.9-2.4 GLOB 3.7 g/dL (Abnormal) Range: 2.3-3.5 ALB 3.6 g/dL (Normal) Range: 3.4-5.0 T PROT 7.3 g/dL (Normal) Range: 6.4-8.2 BUN/CRE 26.8 {RATIO} (Abnormal) Range: 10-20 EST GFR - AA 94 mL/min (Normal) Comments: GFR Calc EST GFR 78 mL/min (Normal) Comments: Non- GFR Calc CREAT,SERUM 0.78 mg/dL (Normal) Range: 0.55-1.02 Comments: The validity of the calculated GFR AND GFRAA in patients over70 years has not been determined. Clinical correlation isessential. BUN 21 mg/dL (Abnormal) Range: 7-18 GLU 87 mg/dL (Normal) Range: 70-110 [id number]-[id number]:14 CBC W/Diff, Automated Comments: [facility] [address] [place], [place], [id number] Absolute Lymph 1.49 {X10_3/ul} (Normal) Range: 0.83-4.51 Absolute Neut 3.6 {X10_3/uL} (Normal) Range: 2.0-7.7 IM GRAN % 0.200 % (Normal) Range: 0.0-0.9 Comments: IG% - Immature Granulocytes (promyelocytes, myelocytes andmetamyelocytes) > 1% indicates that a LEFT SHIFT is Present. BASO% 0.3 % (Normal) Range: 0-1 EO% 2.2 % (Normal) Range: 0-5 MONO% 10.5 % (Abnormal) Range: 0-10 LY% 25.6 % (Normal) Range: 19-41 NEUT% 61.2 % (Normal) Range: 47-70 MPV 11.3 fL (Normal) Range: 6.2-12.0 PLT 185 K/mm3 (Normal) Range: 150-450 RDW SD 42.0 fL (Normal) Range: 35.1-43.9 RDW CV 12.4 % (Normal) Range: 11.6-14.6 MCHC 33.1 {g/gl} (Normal) Range: 32-36 MCH 31.6 pg (Normal) Range: 27.0-32.0 MCV 95.6 fL (Normal) Range: 81-99 HCT 41.4 % (Normal) Range: 37-47 HGB 13.7 g/dL (Normal) Range: 12.0-15.0 RBC 4.33 {M/mm3} (Normal) Range: 4.2-5.4 WBC 5.8 K/mm3 (Normal) Range: 4.4-11.0 :14 Comprehensive Metabolic Profil Comments: [facility] [address] [place], [place], [id number] GAP 6 (Normal) Range: 5-15 CO2 30.0 mmol/L (Normal) Range: 21.0-32.0 CL 103 mmol/L (Normal) Range: 98-107 K 4.2 mmol/L (Normal) Range: 3.5-5.1 NA 139 mmol/L (Normal) Range: 136-145 T BILI 0.40 mg/dL (Normal) Range: 0.20-1.00 ALT 28 U/L (Normal) Range: 12-78 ALK P 105 U/L (Normal) Range: 45-117 AST 26 U/L (Normal) Range: 15-37 CA 9.3 mg/dL (Normal) Range: 8.5-10.1 A/G 1.0 {RATIO} (Normal) Range: 0.9-2.4 GLOB 4.0 g/dL (Abnormal) Range: 2.3-3.5 ALB 4.0 g/dL (Normal) Range: 3.4-5.0 T PROT 8.0 g/dL (Normal) Range: 6.4-8.2 BUN/CRE 25.8 {RATIO} (Abnormal) Range: 10-20 EST GFR - AA 95 mL/min (Normal) Comments: GFR Calc EST GFR 79 mL/min (Normal) Comments: Non- GFR Calc CREAT,SERUM 0.78 mg/dL (Normal) Range: 0.55-1.02 Comments: The validity of the calculated GFR AND GFRAA in patients over70 years has not been determined. Clinical correlation isessential. BUN 20 mg/dL (Abnormal) Range: 7-18 GLU 91 mg/dL (Normal) Range: 70-110 [id number]:25 CBC W/Diff, Automated Comments: [facility] [address] [place], [place], [id number] Absolute Lymph 1.09 {X10_3/ul} (Normal) Range: 0.83-4.51 Absolute Neut 2.4 {X10_3/uL} (Normal) Range: 2.0-7.7 IM GRAN % 0.000 % (Normal) Range: 0.0-0.9 Comments: IG% - Immature Granulocytes (promyelocytes, myelocytes andmetamyelocytes) > 1% indicates that a LEFT SHIFT is Present. BASO% 0.2 % (Normal) Range: 0-1 EO% 3.0 % (Normal) Range: 0-5 MONO% 10.9 % (Abnormal) Range: 0-10 LY% 26.9 % (Normal) Range: 19-41 NEUT% 59.0 % (Normal) Range: 47-70 MPV 11.4 fL (Normal) Range: 6.2-12.0 PLT 178 K/mm3 (Normal) Range: 150-450 RDW SD 45.7 fL (Abnormal) Range: 35.1-43.9 RDW CV 13.1 % (Normal) Range: 11.6-14.6 MCHC 32.7 {g/gl} (Normal) Range: 32-36 MCH 31.8 pg (Normal) Range: 27.0-32.0 MCV 97.2 fL (Normal) Range: 81-99 HCT 42.2 % (Normal) Range: 37-47 HGB 13.8 g/dL (Normal) Range: 12.0-15.0 RBC 4.34 {M/mm3} (Normal) Range: 4.2-5.4 WBC 4.1 K/mm3 (Abnormal) Range: 4.4-11.0 [id number]-[id number]:25 Comprehensive Metabolic Profil Comments: [facility] [address] [place], [address] GAP 7 (Normal) Range: 5-15 CO2 27.0 mmol/L (Normal) Range: 21.0-32.0 CL 106 mmol/L (Normal) Range: 98-107 K 4.2 mmol/L (Normal) Range: 3.5-5.1 NA 140 mmol/L (Normal) Range: 136-145 T BILI 0.50 mg/dL (Normal) Range: 0.20-1.00 ALT 33 U/L (Normal) Range: 12-78 ALK P 91 U/L (Normal) Range: 50-136 AST 20 U/L (Normal) Range: 15-37 CA 8.7 mg/dL (Normal) Range: 8.5-10.1 A/G 1.0 {RATIO} (Normal) Range: 0.9-2.4 GLOB 3.7 g/dL (Abnormal) Range: 2.3-3.5 ALB 3.7 g/dL (Normal) Range: 3.4-5.0 T PROT 7.4 g/dL (Normal) Range: 6.4-8.2 BUN/CRE 26.2 {RATIO} (Abnormal) Range: 10-20 EST GFR - AA 103 mL/min (Normal) Comments: GFR Calc EST GFR 85 mL/min (Normal) Comments: Non- GFR Calc CREAT,SERUM 0.72 mg/dL (Normal) Range: 0.55-1.20 Comments: The validity of the calculated GFR AND GFRAA in patients over70 years has not been determined. Clinical correlation isessential. BUN 19 mg/dL (Abnormal) Range: 7-18 GLU 85 mg/dL (Normal) Range: 70-110 58-Phg-100447:10 CBC W/Diff, Automated Comments: [facility] [address] [place], [place], [id number] Absolute Lymph 1.43 {X10_3/ul} (Normal) Range: 0.83-4.51 Absolute Neut 1.9 {X10_3/uL} (Abnormal) Range: 2.0-7.7 IM GRAN % 0.000 % (Normal) Range: 0.0-0.9 Comments: IG% - Immature Granulocytes (promyelocytes, myelocytes andmetamyelocytes) > 1% indicates that a LEFT SHIFT is Present. BASO% 0.5 % (Normal) Range: 0-1 EO% 5.0 % (Normal) Range: 0-5 MONO% 8.9 % (Normal) Range: 0-10 LY% 37.3 % (Normal) Range: 19-41 NEUT% 48.3 % (Normal) Range: 47-70 MPV 10.7 fL (Normal) Range: 6.2-12.0 PLT 176 K/mm3 (Normal) Range: 150-450 RDW SD 55.2 fL (Abnormal) Range: 35.1-43.9 RDW CV 16.3 % (Abnormal) Range: 11.6-14.6 MCHC 32.0 {g/gl} (Normal) Range: 32-36 MCH 29.6 pg (Normal) Range: 27.0-32.0 MCV 92.7 fL (Normal) Range: 81-99 HCT 34.4 % (Abnormal) Range: 37-47 HGB 11.0 g/dL (Abnormal) Range: 12.0-15.0 RBC 3.71 {M/mm3} (Abnormal) Range: 4.2-5.4 WBC 3.8 K/mm3 (Abnormal) Range: 4.4-11.0 97-Vsi-[id number]:10 Comprehensive Metabolic Profil Comments: [facility] [address] [place], [place], [address] GAP 8 (Normal) Range: 5-15 CO2 27.0 mmol/L (Normal) Range: 21.0-32.0 CL 105 mmol/L (Normal) Range: 98-107 K 4.0 mmol/L (Normal) Range: 3.5-5.1 NA 140 mmol/L (Normal) Range: 136-145 T BILI 0.40 mg/dL (Normal) Range: 0.20-1.00 ALT 45 U/L (Normal) Range: 12-78 ALK P 79 U/L (Normal) Range: 50-136 AST 32 U/L (Normal) Range: 15-37 CA 8.4 mg/dL (Abnormal) Range: 8.5-10.1 A/G 1.1 {RATIO} (Normal) Range: 0.9-2.4 GLOB 3.3 g/dL (Normal) Range: 2.3-3.5 ALB 3.7 g/dL (Normal) Range: 3.4-5.0 T PROT 7.0 g/dL (Normal) Range: 6.4-8.2 BUN/CRE 19.7 {RATIO} (Normal) Range: 10-20 EST GFR - AA 79 mL/min (Normal) Comments: GFR Calc EST GFR 65 mL/min (Normal) Comments: Non- GFR Calc CREAT,SERUM 0.92 mg/dL (Normal) Range: 0.55-1.20 Comments: The validity of the calculated GFR AND GFRAA in patients over70 years has not been determined. Clinical correlation isessential. BUN 18 mg/dL (Normal) Range: 7-18 GLU 90 mg/dL (Normal) Range: 70-110 :50 CBC W/Diff, Automated Comments: [facility] [address] [place], [place], [id number] Absolute Lymph 1.21 {X10_3/ul} (Normal) Range: 0.83-4.51 Absolute Neut 2.9 {X10_3/uL} (Normal) Range: 2.0-7.7 IM GRAN % 0.000 % (Normal) Range: 0.0-0.9 Comments: IG% - Immature Granulocytes (promyelocytes, myelocytes andmetamyelocytes) > 1% indicates that a LEFT SHIFT is Present. BASO% 0.4 % (Normal) Range: 0-1 EO% 2.6 % (Normal) Range: 0-5 MONO% 9.7 % (Normal) Range: 0-10 LY% 26.0 % (Normal) Range: 19-41 NEUT% 61.3 % (Normal) Range: 47-70 MPV 11.3 fL (Normal) Range: 6.2-12.0 PLT 213 K/mm3 (Normal) Range: 150-450 RDW SD 50.8 fL (Abnormal) Range: 35.1-43.9 RDW CV 15.4 % (Abnormal) Range: 11.6-14.6 MCHC 31.3 {g/gl} (Abnormal) Range: 32-36 MCH 28.3 pg (Normal) Range: 27.0-32.0 MCV 90.4 fL (Normal) Range: 81-99 HCT 36.8 % (Abnormal) Range: 37-47 HGB 11.5 g/dL (Abnormal) Range: 12.0-15.0 RBC 4.07 {M/mm3} (Abnormal) Range: 4.2-5.4 WBC 4.7 K/mm3 (Normal) Range: 4.4-11.0 :50 Comprehensive Metabolic Profil Comments: [facility] [address] [place], [place], [id number] GAP 10 (Normal) Range: 5-15 CO2 24.0 mmol/L (Normal) Range: 21.0-32.0 CL 105 mmol/L (Normal) Range: 98-107 K 3.8 mmol/L (Normal) Range: 3.5-5.1 NA 139 mmol/L (Normal) Range: 136-145 T BILI 0.30 mg/dL (Normal) Range: 0.20-1.00 ALT 47 U/L (Normal) Range: 12-78 ALK P 96 U/L (Normal) Range: 50-136 AST 30 U/L (Normal) Range: 15-37 CA 8.6 mg/dL (Normal) Range: 8.5-10.1 A/G 0.9 {RATIO} (Normal) Range: 0.9-2.4 GLOB 4.0 g/dL (Abnormal) Range: 2.3-3.5 ALB 3.6 g/dL (Normal) Range: 3.4-5.0 T PROT 7.6 g/dL (Normal) Range: 6.4-8.2 BUN/CRE 26.0 {RATIO} (Abnormal) Range: 10-20 EST GFR - AA 75 mL/min (Normal) Comments: GFR Calc EST GFR 62 mL/min (Normal) Comments: Non- GFR Calc CREAT,SERUM 0.96 mg/dL (Normal) Range: 0.55-1.20 Comments: The validity of the calculated GFR AND GFRAA in patients over70 years has not been determined. Clinical correlation isessential. BUN 25 mg/dL (Abnormal) Range: 7-18 GLU 86 mg/dL (Normal) Range: 70-110 7-Dpq-103976:02 CBC W/Diff, Automated Comments: Test performed at:[facility] [address] [place] [address] Absolute Lymph 1.28 {X10_3/ul} (Normal) Range: 0.83-4.51 Absolute Neut 2.6 {X10_3/uL} (Normal) Range: 2.0-7.7 IM GRAN % 0.000 % (Normal) Range: 0.0-0.9 Comments: IG% - Immature Granulocytes (promyelocytes, myelocytes andmetamyelocytes) > 1% indicates that a LEFT SHIFT is Present. BASO% 0.2 % (Normal) Range: 0-1 EO% 4.0 % (Normal) Range: 0-5 MONO% 10.2 % (Abnormal) Range: 0-10 LY% 28.4 % (Normal) Range: 19-41 NEUT% 57.2 % (Normal) Range: 47-70 MPV 11.4 fL (Normal) Range: 6.2-12.0 PLT 204 K/mm3 (Normal) Range: 150-450 RDW SD 51.3 fL (Abnormal) Range: 35.1-43.9 RDW CV 15.1 % (Abnormal) Range: 11.6-14.6 MCHC 32.1 {g/gl} (Normal) Range: 32-36 MCH 29.8 pg (Normal) Range: 27.0-32.0 MCV 92.9 fL (Normal) Range: 81-99 HCT 36.5 % (Abnormal) Range: 37-47 HGB 11.7 g/dL (Abnormal) Range: 12.0-15.0 RBC 3.93 {M/mm3} (Abnormal) Range: 4.2-5.4 WBC 4.5 K/mm3 (Normal) Range: 4.4-11.0 3-Jmy-[id number]:02 Comprehensive Metabolic Profil Comments: Test performed at:[facility] [address] [place], [place] [id number] GAP 5 (Normal) Range: 5-15 CO2 27.0 mmol/L (Normal) Range: 21.0-32.0 CL 106 mmol/L (Normal) Range: 98-107 K 4.0 mmol/L (Normal) Range: 3.5-5.1 NA 138 mmol/L (Normal) Range: 136-145 T BILI 0.40 mg/dL (Normal) Range: 0.20-1.00 ALT 25 U/L (Normal) Range: 12-78 ALK P 83 U/L (Normal) Range: 50-136 AST 24 U/L (Normal) Range: 15-37 CA 8.4 mg/dL (Abnormal) Range: 8.5-10.1 A/G 1.2 {RATIO} (Normal) Range: 0.9-2.4 GLOB 3.1 g/dL (Normal) Range: 2.3-3.5 ALB 3.6 g/dL (Normal) Range: 3.4-5.0 T PROT 6.7 g/dL (Normal) Range: 6.4-8.2 BUN/CRE 23.0 {RATIO} (Abnormal) Range: 10-20 EST GFR - AA 102 mL/min (Normal) EST GFR 84 mL/min (Normal) CREAT,SERUM 0.74 mg/dL (Normal) Range: 0.55-1.20 Comments: Please note revised CREATININE reference range [id number]/22/2015. BUN 17 mg/dL (Normal) Range: 7-18 GLU 86 mg/dL (Normal) Range: 70-110 [id number]-Oli-[id number]:56 CBC W/Diff, Automated Comments: Test performed at:[facility] [address] [place], [place] [id number] Absolute Lymph 1.26 {X10_3/ul} (Normal) Range: 0.83-4.51 Absolute Neut 1.8 {X10_3/uL} (Abnormal) Range: 2.0-7.7 IM GRAN % 0.000 % (Normal) Range: 0.0-0.9 Comments: IG% - Immature Granulocytes (promyelocytes, myelocytes andmetamyelocytes) > 1% indicates that a LEFT SHIFT is Present. BASO% 0.5 % (Normal) Range: 0-1 EO% 4.1 % (Normal) Range: 0-5 MONO% 13.1 % (Abnormal) Range: 0-10 LY% 34.3 % (Normal) Range: 19-41 NEUT% 48.0 % (Normal) Range: 47-70 MPV 9.9 fL (Normal) Range: 6.2-12.0 PLT 184 K/mm3 (Normal) Range: 150-450 RDW SD 51.1 fL (Abnormal) Range: 35.1-43.9 RDW CV 15.0 % (Abnormal) Range: 11.6-14.6 MCHC 32.6 {g/gl} (Normal) Range: 32-36 MCH 30.5 pg (Normal) Range: 27.0-32.0 MCV 93.4 fL (Normal) Range: 81-99 HCT 32.8 % (Abnormal) Range: 37-47 HGB 10.7 g/dL (Abnormal) Range: 12.0-15.0 RBC 3.51 {M/mm3} (Abnormal) Range: 4.2-5.4 WBC 3.7 K/mm3 (Abnormal) Range: 4.4-11.0 62-Vuy-113712:56 Comprehensive Metabolic Profil Comments: Test performed at:[facility] [id number] [facility] [place] [address] GAP 4 (Abnormal) Range: 5-15 CO2 29.0 mmol/L (Normal) Range: 21.0-32.0 CL 106 mmol/L (Normal) Range: 98-107 K 3.9 mmol/L (Normal) Range: 3.5-5.1 NA 139 mmol/L (Normal) Range: 136-145 T BILI 0.40 mg/dL (Normal) Range: 0.00-4.00 ALT 24 U/L (Normal) Range: 12-78 ALK P 100 U/L (Normal) Range: 50-136 AST 27 U/L (Normal) Range: 15-37 CA 8.4 mg/dL (Abnormal) Range: 8.5-10.1 A/G 1.1 {RATIO} (Normal) Range: 0.9-2.4 GLOB 3.3 g/dL (Normal) Range: 2.7-4.2 ALB 3.6 g/dL (Normal) Range: 3.4-5.0 T PROT 6.9 g/dL (Normal) Range: 6.4-8.2 BUN/CRE 20.0 {RATIO} (Normal) Range: 10-20 EST GFR - AA 93 mL/min (Normal) EST GFR 77 mL/min (Normal) CREAT,SERUM 0.8 mg/dL (Normal) Range: 0.6-1.0 BUN 16 mg/dL (Normal) Range: 7-18 GLU 90 mg/dL (Normal) Range: 70-110 52-Kzs-493448:22 CBC W/Diff, Automated Comments: Test performed at:[facility] [address] [facility] [place], [place] [id number] Absolute Lymph 1.06 {X10_3/ul} (Normal) Range: 0.83-4.51 Absolute Neut 2.2 {X10_3/uL} (Normal) Range: 2.0-7.7 IM GRAN % 0.000 % (Normal) Range: 0.0-0.9 Comments: IG% - Immature Granulocytes (promyelocytes, myelocytes andmetamyelocytes) > 1% indicates that a LEFT SHIFT is Present. BASO% 0.5 % (Normal) Range: 0-1 EO% 5.6 % (Abnormal) Range: 0-5 MONO% 11.5 % (Abnormal) Range: 0-10 LY% 27.2 % (Normal) Range: 19-41 NEUT% 55.2 % (Normal) Range: 47-70 MPV 10.9 fL (Normal) Range: 6.2-12.0 PLT 214 K/mm3 (Normal) Range: 150-450 RDW SD 45.1 fL (Abnormal) Range: 35.1-43.9 RDW CV 13.6 % (Normal) Range: 11.6-14.6 MCHC 32.3 {g/gl} (Normal) Range: 32-36 MCH 30.7 pg (Normal) Range: 27.0-32.0 MCV 95.2 fL (Normal) Range: 81-99 HCT 37.5 % (Normal) Range: 37-47 HGB 12.1 g/dL (Normal) Range: 12.0-15.0 RBC 3.94 {M/mm3} (Abnormal) Range: 4.2-5.4 WBC 3.9 K/mm3 (Abnormal) Range: 4.4-11.0 52-Gjz-433179:22 Comprehensive Metabolic Profil Comments: Test performed at:[facility] [address] [place], [place] [id number] GAP 6 (Normal) Range: 5-15 CO2 29.0 mmol/L (Normal) Range: 21.0-32.0 CL 103 mmol/L (Normal) Range: 98-107 K 3.8 mmol/L (Normal) Range: 3.5-5.1 NA 138 mmol/L (Normal) Range: 136-145 T BILI 0.40 mg/dL (Normal) Range: 0.00-4.00 ALT 28 U/L (Normal) Range: 12-78 ALK P 91 U/L (Normal) Range: 50-136 AST 23 U/L (Normal) Range: 15-37 CA 8.7 mg/dL (Normal) Range: 8.5-10.1 A/G 1.1 {RATIO} (Normal) Range: 0.9-2.4 GLOB 3.5 g/dL (Normal) Range: 2.7-4.2 ALB 3.8 g/dL (Normal) Range: 3.4-5.0 T PROT 7.3 g/dL (Normal) Range: 6.4-8.2 BUN/CRE 21.4 {RATIO} (Abnormal) Range: 10-20 EST GFR - AA 108 mL/min (Normal) EST GFR 89 mL/min (Normal) CREAT,SERUM 0.7 mg/dL (Normal) Range: 0.6-1.0 BUN 15 mg/dL (Normal) Range: 7-18 GLU 98 mg/dL (Normal) Range: 70-110 [id number]-Nbx-[id number]:21 CBCD ALC 1.47 {X10_3/ul} (Normal) Range: 0.83-4.51 ANC 2.2 {X10_3/uL} (Normal) Range: 2.0-7.7 IG% 0.000 % (Normal) Range: 0.0-0.9 Comments: IG% - Immature Granulocytes (promyelocytes, myelocytes andmetamyelocytes) > 1% indicates that a LEFT SHIFT is Present. B% 0.5 % (Normal) Range: 0-1 E% 2.9 % (Normal) Range: 0-5 M% 8.2 % (Normal) Range: 0-10 L% 35.6 % (Normal) Range: 19-41 N% 52.8 % (Normal) Range: 47-70 MPV 10.7 fL (Normal) Range: 6.2-12.0 PLT 194 K/mm3 (Normal) Range: 150-450 RDWSD 46.0 fL (Abnormal) Range: 35.1-43.9 RDWCV 12.8 % (Normal) Range: 11.6-14.6 MCHC 32.9 {g/gl} (Normal) Range: 32-36 MCH 32.1 pg (Abnormal) Range: 27.0-32.0 MCV 97.8 fL (Normal) Range: 81-99 HCT 35.6 % (Abnormal) Range: 37-47 HGB 11.7 g/dL (Abnormal) Range: 12.0-15.0 RBC 3.64 {M/mm3} (Abnormal) Range: 4.2-5.4 WBC 4.1 K/mm3 (Abnormal) Range: 4.4-11.0 [id number]-[id number]:21 CMP Comments: Comments: VECTRA GAP 6 (Normal) Range: 5-15 CO2 28.0 mmol/L (Normal) Range: 21.0-32.0 CL 104 mmol/L (Normal) Range: 98-107 K 3.9 mmol/L (Normal) Range: 3.5-5.1 NA 138 mmol/L (Normal) Range: 136-145 BIT 0.30 mg/dL (Normal) Range: 0.00-4.00 ALT 25 U/L (Normal) Range: 12-78 ALK 90 U/L (Normal) Range: 50-136 AST 24 U/L (Normal) Range: 15-37 CA 9.1 mg/dL (Normal) Range: 8.5-10.1 AG 1.1 {RATIO} (Normal) Range: 0.9-2.4 GLOB 3.3 g/dL (Normal) Range: 2.7-4.2 ALB 3.7 g/dL (Normal) Range: 3.4-5.0 TPROT 7.0 g/dL (Normal) Range: 6.4-8.2 BC 21.1 {RATIO} (Abnormal) Range: 10-20 GFRAA 81 mL/min (Normal) GFR 67 mL/min (Normal) CREAT 0.9 mg/dL (Normal) Range: 0.6-1.0 BUN 19 mg/dL (Abnormal) Range: 7-18 GLU 95 mg/dL (Normal) Range: 70-110 [id number]:21 MISC (Normal) Comments: Comments: VECTRATest(s) Ordered: VECTRA Comments: Sent directly to testing facility per ordering physician.08/30/14 1524 MAL [id number] CBCD ANC 1.7 {X10_3/uL} (Abnormal) Range: 2.0-7.7 B% 0.5 % (Normal) Range: 0-1 IG% 0.000 % (Normal) Range: 0.0-0.9 Comments: IG% - Immature Granulocytes (promyelocytes, myelocytes andmetamyelocytes) > 1% indicates that a LEFT SHIFT is Present. E% 5.5 % (Abnormal) Range: 0-5 L% 33.2 % (Normal) Range: 19-41 M% 14.0 % (Abnormal) Range: 0-10 N% 46.8 % (Abnormal) Range: 47-70 MPV 10.8 fL (Normal) Range: 6.2-12.0 PLT 180 K/mm3 (Normal) Range: 150-450 RDWSD 42.2 fL (Normal) Range: 35.1-43.9 RDWCV 12.6 % (Normal) Range: 11.6-14.6 MCHC 33.2 {g/gl} (Normal) Range: 32-36 MCH 31.6 pg (Normal) Range: 27.0-32.0 MCV 94.9 fL (Normal) Range: 81-99 HCT 39.1 % (Normal) Range: 37-47 HGB 13.0 g/dL (Normal) Range: 12.0-15.0 RBC 4.12 {M/mm3} (Abnormal) Range: 4.2-5.4 WBC 3.7 K/mm3 (Abnormal) Range: 4.4-11.0 73-Pys-[id number]:27 CMP GAP 5 (Normal) Range: 5-15 CO2 29.0 mmol/L (Normal) Range: 21.0-32.0 CL 105 mmol/L (Normal) Range: 98-107 K 4.0 mmol/L (Normal) Range: 3.5-5.1 NA 139 mmol/L (Normal) Range: 136-145 BIT 0.30 mg/dL (Normal) Range: 0.00-1.00 ALT 28 U/L (Normal) Range: 12-78 ALK 93 U/L (Normal) Range: 45-117 AST 21 U/L (Normal) Range: 15-37 CA 8.4 mg/dL (Abnormal) Range: 8.5-10.1 AG 1.1 {RATIO} (Normal) Range: 0.9-2.4 GLOB 3.4 g/dL (Normal) Range: 2.7-4.2 ALB 3.7 g/dL (Normal) Range: 3.4-5.0 TPROT 7.1 g/dL (Normal) Range: 6.4-8.2 BC 26.3 {RATIO} (Abnormal) Range: 10-20 GFRAA 93 mL/min (Normal) GFR 77 mL/min (Normal) CREAT 0.8 mg/dL (Normal) Range: 0.6-1.0 BUN 21 mg/dL (Abnormal) Range: 7-18 GLU 102 mg/dL (Normal) Range: 70-110 [id number]:41 Pap IG, Ct-Ng, Comments: Source.............Cervical;EndocervicalNo. of containers..01 CYTYC Thin Prep VialPERFORMED BY: WB [id number] [facility] [id number] BY: =G [facility] [id number] HPV-hr 0 [facility] [id number] Information: [id number] Gonococcus, Nuc. Acid Amp Negative (Normal) Chlamydia, Nuc. Acid Amp Negative (Normal) HPV, high-risk Positive (Abnormal) Comments: This high-risk HPV test detects thirteen high-risk types(16/18/31/33/35/39/45/51/52/56/58/59/68) without differentiation. . Note: PAPSMR (Normal) Comments: The Pap smear is a screening test designed to aid in the detection ofpremalignant and malignant conditions of the uterine cervix. It is not adiagnostic procedure and should not be used as the sole mean s of detectingcervical cancer. Both false-positive and false-negative reports do occur. .This liquid based ThinPrep(R) pap test w as screened with theuse of an image guided system. See Note . (Normal) DIAGNOSIS: SPRCS (Normal) Comments: NEGATIVE FOR INTRAEPITHELIAL LESION AND MALIGNANCY.Satisfactory for evaluation. No endocervical component is identified.V72.31 ; Routine gynecological zqyyujdylyqF82.81 ; Special screening examination, human papillomavirus [HPV]Julieth Doran [employer]ident Management Manager (ASCP) [id number]:[address] DIGITAL & CAD Radiology Report See Note (Normal) Comments: MAMMOGRAPHY - BILATERAL SCREENING REASON FOR EXAM: Female, 62 years old. Routine annual screeningexamination. PERTINENT HISTORY: Non-contributory. TECHNIQUE: Digital examination. Med iolateral ob lique (MLO) andcraniocaudad (CC) views of both breasts were obtained. CAD: CAD wasperformed on this study. COMPARISON: Comparison is made with prior outside examination [id number], 2005. FINDINGS:Th e breast composition is composed of scattered fibroglandular densities. There are no dominant masses or suspicious calcifications. No other significant abnormalities are identified. There has been nosi gnificant change since the prior study. IMPRESSION:Stable bilateral screening mammogram. Yearly follow-up recommended. (A) ASSESSMENT CATEGORY:BIRADS Category 2: Benign finding(s). A letter regardi ng these resultswill be sent to the patient by the facility within 30 days. Approximately 10% of breast cancers are not detected by mammography. Anormal mammogram should not delay biopsy of a clinicall y suspiciousabnormality. Signed:Juanpablo Perkins M.D.November 10, 2012 at 2:52:10 PM [id number] Signed GP/GP If you are the referring physician and would like to consult with hilda iologsimone who provided this interpretation, please contact Monica Bonilla at [phone]. If this radiologist is unavailable, youwill be directed to another radiologist to assist. If you are a patient with a question regarding this report, pleasecontactyour referring physician directly. Professional Interpretation Provided By: JW Player, Phone , These documents contain legally protected and confidential healthinformation intended only for the use of the individual or entity namedabove. If you are not the intended recipient, you are hereby notifiedthatany disc losure, copying, distribution, or other use of these documents isstrictly prohibited. If you have received this information in error,pleasenotify the sender immediately and arrange for the return or chance tructionofthese documents. Dictated on 11/05/12 1100 by Maria L Perkins MDscribed on 11/11/12321 by ITS IMPORTSign by Juanpablo Perkins MD on 11/11/12322 Sign by: Juanpablo Perkins MD 18-Uip-783752:51 Hemoglobin Glyclated (HGB Comments: PATIENT NOT FASTINGPERFORMED BY: PAN [facility] HospitalQrxiwq6282 [facility] [id number] Information: [id number] A1C) (00312) Hemoglobin A1c 5.4 % (Normal) Range: 4.8-5.6 Comments: . Increased risk for diabetes: 5.7 - 6.4 Diabetes: >6.4 Glycemic control for adults with diabetes: <7.0 :08 CBCD Comments: DR. AGUILAR ORDERED LIPIDDRLyndon JUARES ORDERED CMP CBCD ABSOLUTE NEUT 1.9 3/uL (Abnormal) Range: 2.0-7.7 BASO% 0.6 % (Normal) Range: 0-1 EO% 3.3 % (Normal) Range: 0-5 LY% 35.8 % (Normal) Range: 19-41 MCHC 33.6 g/dL (Normal) Range: 32-36 MONO% 9.3 % (Normal) Range: 0-10 MPV 10.0 fL (Normal) Range: 6.5-12.0 NEUT% 51.0 % (Normal) Range: 47-70 PLT 200 K/mm3 (Normal) Range: 150-450 RDW 13.2 % (Normal) Range: 11.6-14.6 HCT 43.5 % (Normal) Range: 37-47 HGB 14.6 g/dL (Normal) Range: 12.0-16.0 MCH 31.9 pg (Normal) Range: 27.0-32.0 MCV 94.8 fL (Normal) Range: 81-99 RBC 4.59 {M/mm3} (Normal) Range: 4.2-5.4 WBC 3.7 K/mm3 (Abnormal) Range: 4.4-11.0 :08 COMP METABOLIC Comments: DR. AGUILAR ORDERED LIPIDDR. VELLANCORNELL ORDERED CMP CBCD A/G 1.0 {RATIO} (Normal) Range: 0.9-2.4 ALB 3.6 g/dL (Normal) Range: 3.4-5.0 ALK P 83 U/L (Normal) Range: 50-136 ALT 39 U/L (Normal) Range: 12-78 AST 9 U/L (Abnormal) Range: 15-37 CA 8.6 mg/dL (Normal) Range: 8.5-10.1 CL 104 mmol/L (Normal) Range: 98-107 CO2 25.0 mmol/L (Normal) Range: 21.0-32.0 GAP 14 (Normal) Range: 5-15 GLOB 3.7 g/dL (Normal) Range: 2.7-4.2 K 4.0 mmol/L (Normal) Range: 3.5-5.1 NA 143 mmol/L (Normal) Range: 136-145 T BILI 0.60 mg/dL (Normal) Range: 0.00-1.00 BUN/CRE 18.3 {RATIO} (Normal) Range: 10-20 EST GFR 108 mL/min (Normal) EST GFR - AA 131 mL/min (Normal) T PROT 7.3 g/dL (Normal) Range: 6.4-8.2 BUN 11 mg/dL (Normal) Range: 7-18 CREAT,SERUM 0.6 mg/dL (Normal) Range: 0.6-1.0 GLU 84 mg/dL (Normal) Range: 70-110 27-Oct-20098:08 LIPID Comments: DR. AGUILAR ORDERED LIPIDDR. NINA ORDERED CMP CBCD CHOL 180 mg/dL (Normal) Comments: <200 mg/dL Nevboelxh422-825 mg/dL Borderline>240 mg/dL High Risk HDL 70 mg/dL (Normal) Comments: Reference RangeHDL <40 mg/dL Low HDL CholesterolHDL >or= 60 mg/dL High HDL Cholesterol LDL 99 mg/dL (Normal) Range: 0-130 TRIG 54 mg/dL (Normal) Comments: Serum Triglycerides Reference IntervalNormal <150 mg/dLBorderline high 150 - 199 mg/dLHigh 200 - 499 mg/ dLVery High > or = 500 mg/dL VLDL 11 mg/dL (Normal) Range: 5-40 8-Ynt-925785:05 Uric Acid Blood ([id number]) Comments: PATIENT NOT FASTINGPERFORMED BY: [facility] [id number] Uric Acid, Serum 2.7 mg/dL (Normal) Range: 2.4-8.2 3-Zhj-298547:05 YEIMI (ANTINUCLEAR ANTIBODY) Comments: PATIENT NOT FASTINGPERFORMED BY: [facility] [id number] ([id number]) Antinuclear Antibodies Direct Negative (Normal) 6-Mwx-958490:05 C-REACTIVE PROTEIN (38241) Comments: PATIENT NOT FASTINGPERFORMED BY: [address] [id number] C-Reactive Protein, Quant 12.9 mg/L (Abnormal) Range: 0.0-4.9 7-Yye-902519:05 CBC WITH MANUAL DIFF (18833) Comments: PATIENT NOT FASTINGClinical Information: ADD [id number], [id number] PERFORMED BY: [facility] [id number] Baso (Absolute) 0.1 {x10E3/uL} (Normal) Range: 0.0-0.2 Basos 1 % (Normal) Range: 0-3 Eos 4 % (Normal) Range: 0-7 Eos (Absolute) 0.2 {x10E3/uL} (Normal) Range: 0.0-0.4 Hematocrit 42.2 % (Normal) Range: 34.0-44.0 Hemoglobin 14.5 g/dL (Normal) Range: 11.5-15.0 Lymphs 22 % (Normal) Range: 14-46 Lymphs (Absolute) 1.1 {x10E3/uL} (Normal) Range: 0.7-4.5 MCH 33.5 pg (Normal) Range: 27.0-34.0 MCHC 34.4 g/dL (Normal) Range: 32.0-36.0 MCV 98 fL (Normal) Range: 80-98 Monocytes 9 % (Normal) Range: 4-13 Monocytes(Absolute) 0.5 {x10E3/uL} (Normal) Range: 0.1-1.0 Neutrophils 64 % (Normal) Range: 40-74 Neutrophils (Absolute) 3.3 {x10E3/uL} (Normal) Range: 1.8-7.8 Platelets 263 {x10E3/uL} (Normal) Range: 140-415 RBC 4.32 {x10E6/uL} (Normal) Range: 3.80-5.10 RDW 12.3 % (Normal) Range: 11.7-15.0 WBC 5.2 {x10E3/uL} (Normal) Range: 4.0-10.5 :05 CCP ANTIBODY ([id number]) Comments: PATIENT NOT FASTINGPERFORMED BY: [facility] [id number] CCP IgG Antibodies 20 U/mL (Abnormal) Range: 0-5 Comments: Negative: 0 - 5 Positive: >5 :05 METABOLIC PANEL, COMPREHENSIVE Comments: PATIENT NOT FASTINGPERFORMED BY: [facility] [id number] ([id number]) A/G Ratio 1.4 (Normal) Range: 1.1-2.5 Albumin, Serum 4.2 g/dL (Normal) Range: 3.5-5.5 Alkaline Phosphatase, S 102 [iU]/L (Normal) Range: 25-150 ALT (SGPT) 16 [iU]/L (Normal) Range: 0-40 AST (SGOT) 16 [iU]/L (Normal) Range: 0-40 Bilirubin, Total 0.3 mg/dL (Normal) Range: 0.1-1.2 BUN 14 mg/dL (Normal) Range: 5-26 BUN/Creatinine Ratio 20 (Normal) Range: 8-27 Calcium, Serum 9.4 mg/dL (Normal) Range: 8.5-10.6 Carbon Dioxide, Total 24 mmol/L (Normal) Range: 20-32 Chloride, Serum 104 mmol/L (Normal) Range: 97-108 Creatinine, Serum 0.69 mg/dL (Normal) Range: 0.57-1.00 eGFR >59 mL/min/1.73 (Normal) eGFR AfricanAmerican >59 mL/min/1.73 Comments: Note: Persistent reduction for 3 months or more in an eGFR<60 mL/min/1.73 m2 defines CKD. Patients with eGFR values>/=60 mL/min/1.73 m2 may also have CKD if evidence of persistentproteinuria is (Normal) present. Additional information may be found [email or web address]. Globulin, Total 3.0 g/dL (Normal) Range: 1.5-4.5 Glucose, Serum 101 mg/dL (Abnormal) Range: 65-99 Potassium, Serum 4.3 mmol/L (Normal) Range: 3.5-5.2 Protein, Total, Serum 7.2 g/dL (Normal) Range: 6.0-8.5 Sodium, Serum 141 mmol/L (Normal) Range: 135-145 7-Uoc-518515:05 SED RATE ERYTHROCYTE ([id number]) Comments: PATIENT NOT FASTINGPERFORMED BY: BN [facility] [id number] [facility] [id number] Sedimentation Rate-Westergren 29 mm/h (Normal) Range: 0-30 9-Kig-019829:05 TSH ([id number]) Comments: PATIENT NOT FASTINGPERFORMED BY: [facility] [id number] [facility] [id number] TSH 1.470 {uIU/mL} (Normal) Range: 0.450-4.500 Plan of Care Name Dates Details Instructions Osteopenia : Reviewed Diagnostic Tests Indication: Osteopenia Osteopenia : Diet, Exercise, and Wt loss Indication: Osteopenia Abnormal ultrasound of breast : Reviewed Diagnostic Tests Indication: Abnormal ultrasound of breast Non-smoker : Eprescribed prescriptions (G8553) Indication: Non-smoker Annual Medicare Phyiscal WITHOUT abnormal findings (Renamed from Encounter for general adult medical examination without abnormal findings) : fall reduction handout Indication: Annual Medicare Phyiscal WITHOUT abnormal findings (Renamed from Encounter for general adult medical examination without abnormal findings) Annual Medicare Phyiscal WITHOUT abnormal findings (Renamed from Encounter for general adult medical examination without abnormal findings) : elderly packet given Indication: Annual Medicare Phyiscal WITHOUT abnormal findings (Renamed from Encounter for general adult medical examination without abnormal findings) Annual Medicare Phyiscal WITHOUT abnormal findings (Renamed from Encounter for general adult medical examination without abnormal findings) : advance planning information Indication: Annual Medicare Phyiscal WITHOUT abnormal findings (Renamed from Encounter for general adult medical examination without abnormal findings) Annual Medicare Phyiscal WITHOUT abnormal findings (Renamed from Encounter for general adult medical examination without abnormal findings) : Self breast exam Indication: Annual Medicare Phyiscal WITHOUT abnormal findings (Renamed from Encounter for general adult medical examination without abnormal findings) Encounter for screening mammogram for breast cancer (Renamed from Encounter for screening mammogram for malignant neoplasm of breast) : Self breast exam Indication: Encounter for screening mammogram for breast cancer (Renamed from Encounter for screening mammogram for malignant neoplasm of breast) Well woman exam : Self breast exam Indication: Well woman exam Well woman exam : *Colon Cancer Screening Indication: Well woman exam Well woman exam : *Well Female Maintenance (KF) Indication: Well woman exam Well woman exam : Pap/Pelvic/Bimanual/Rectal/Breast Exam was done. Indication: Well woman exam Arthritis, rheumatic, acute or subacute : Solu Medrol Injection/ Education Indication: Arthritis, rheumatic, acute or subacute Pain in unspecified joint : Solu Medrol Injection/ Education Indication: Pain in unspecified joint Planned Observations LIPID PANEL (38613)Indication: Encounter for screening for lipid disorder On: 0-Ynh-159002:20 Request GLUCOSE (17466)Indication: Family history of diabetes mellitus On: 0-Dnv-621195:18 Request HPV automatic (42222)Indication: Screening for HPV (human papillomavirus) On: 27-Gnf-540181:39 Request Thin prep Pap (20624)Indication: Well woman exam On: 35-Rih-964078:14 Request FECAL OCCULT HGB ASSAY- tubes sent home (65880)Indication: Well woman exam On: 92-Xbk-670394:14 Request FECAL OCCULT HGB ASSAY- tubes sent home (60082)Indication: Arthritis, rheumatic, acute or subacute On: 51-Ppo-801953:31 Request LIPID PANEL (71089)Indication: Family history of diabetes mellitus On: :28 Request Glucose, PP/2 Hour (40383)Indication: Family history of diabetes mellitus On: 26-Zlt-301420:28 Request Planned Procedures PNEUM VAC ADLT/IMUMNOSPR, SBC/INTRM On: 19-Aug-2018 Intent (68361)By: Hyacinth Aguilar DO Comments: 0.5 cc gicen sq lt arm lot [id number] exp 11/15/19 Hyacinth FELIX DEXA SCAN AXIAL SKELETON (43751)By: On: 19-Aug-2018 Intent Hyacinth Aguilar DO, DO, Kathleen SCREENING DIGITAL TOMOSYNTHESIS OF On: 19-Aug-2018 Intent BREAST (14284)By: Hyacinth Aguilar DO, DO, Kathleen DXA, BONE DENSITY, AXIAL SKELETON On: 05-Nov-2012 Intent (33483)By: Soheila Parikh LPN MAMMOGRAM, SCREENING, BOTH BREASTS On: 05-Nov-2012 Intent (06530)By: Soheila Parikh LPN MAMMOGRAM, SCREENING, BOTH BREASTS On: 22-Oct-2012 Intent (38639)By: Hyacinth Aguilar DO, DO, Kathleen DXA, BONE DENSITY, AXIAL SKELETON On: 22-Oct-2012 Intent (47707)By: Hyacinth Aguilar DO, DO, Kathleen Solu- Medrol Injection, 125mg On: 22-Jun-2009 Intent (J2930)By: Hyacinth Aguilar DO Comments: Given in left hipLot # [id number] 01/2012[facility] Hyacinth FELIX TDAP VACCINE >7 IM (37218)By: Lesvia On: 01-Jun-2009 Intent Hyacinth FELIX DO, Kathleen Comments: Lot #[id number]-left deltoidDose0.5mlgiven by Germania Godfrey LPN Solu- Medrol Injection, 125mg On: 25-May-2009 Intent (J2930)By: Hyacinth Aguilar DO Comments: Lot #[id number]-right pumVvnu305vu/2mlgiven by Hyacinth Barrera LPN, DO Instructions Name Dates Details Non-smoker : How to access health information online Indication: Non-smoker Non-smoker : How to access health information online - Detail Indication: Non-smoker BMI 30.0-30.9,adult : Patient Instructions Indication: BMI 30.0-30.9,adult Non-smoker : How to access health information online Indication: Non-smoker Non-smoker : How to access health information online - Detail Indication: Non-smoker Non-smoker : Patient Instructions Indication: Non-smoker Well woman exam : Patient Instructions Indication: Well woman exam Encounters Phone Encounter On: 22-Sep-2018 8:02 Encounter Diagnosis: Abnormal ultrasound of breast End: 22-Sep-2018 8:05 [facility] Office Visit On: 15-Sep-2018 12:07 Encounter Reason: Follow up tests - Diagnostic tests include other (labs and mammogram). Note for Discuss procedure results: Here to discuss mammogram resultsEncounter Diagnosis: Non-smoker, Arthritis, rheumatic, acute or subacute, End: 15-Sep-2018 14:05 BMI 30.0-30.9,adult, Abnormal ultrasound of breast, Osteopenia, Vitamin D deficiency [facility] Office Visit On: 19-Aug-2018 10:04 Encounter Reason: Follow up tests - Date: (08/03/18 labs)., [ADDITIONAL REASON] Annual Medicare Exam - The patient had reviewed and updated the family history, End: 19-Aug-2018 12:12 medication/s, past medical history and social history. Yes the patient did have a mini mental status exam done today. The activities of daily living the patient needs help with are none. The patient has driven in past 6 months and put area rugs through house, but the patient has not had fecal incontinence, had urinary incontinence, missed or ran out of medications to soon, fallen in the past 6 months, gotten lost, has a medalert necklace or bracelet or put handrails in bathroom. The patient has completed the following preventative measures: mammography (yrs) and colonoscopy (2011). The patient does have durable power of employment law attorney and living will. The patient has noticed nothing from the geriatic depression scale. Other providers contributing to the patient's care are other: (ra and eye doc). Encounter Diagnosis: Non-smoker, Encounter for screening mammogram for breast cancer (Renamed from Encounter for screening mammogram for malignant neoplasm of breast), Post-menopausal, Colon cancer screening (Renamed from Encounter for screening for malignant neoplasm of colon), Family history of diabetes mellitus (V18.0), Encounter for screening for lipid disorder, Annual Medicare Phyiscal WITHOUT abnormal findings (Renamed from Encounter for general adult medical examination without abnormal findings), Body mass index 29.0-29.9, adult [facility] Office Visit On: 05-Nov-2012 9:55 Encounter Reason: Well Women Exam - The patient feels well with minor complaints, has good energy level and is sleeping well. Pap smear: date of last pap: (?). Contraceptive history: The patient is not using any method o End: 05-Nov-2012 15:54 f contraception at this time. Patient exercises 3 - 4 times per week. The patient reports that she does not perform monthly breast self exam. Calcium intake includes 1200 mg daily supplment. The patient denies the use of oral contraceptives or hormone replacement therapy. 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 The course has been constant. The pain is described as severe (it spreads around in my mary End: 22-Jun-2009 11:00 ints. My arms and fingers and jaw). 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 General health: does not feel well ,has good energy level and is sleeping well. The patient's appetite is normal. Nutrition: normal/adequa End: 01-Jun-2009 15:06 te. Exercises 2 days per week. Sleeps on average 7 hours per night. Normal bowel and bladder habits. Safety measures include appropriate use of safety belts and home smoke detectors. There are no curren t emotional problems. screening, mammography and screening, Pap smear. , [ADDITIONAL REASON] Follow up, Laboratory Test Results - Date: (05/25/09). 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 The course has been constant. The joint swelling is described as moderate. Encounter Diagnosis: End: 25-May-2009 14:29 ARTHRALGIAS 719.40, Arm Pain (729.5) [facility] Payers [place]/Medicare Bertin ryan guarantor
--- OUTSIDE RECORDS SUMMARY | 2018-11-13 14:11 | XMS RPT_ITS | Continuity of Care Document ---
:1950 Author Organization [facility] Address [address] [place] [address] Phone Care Team Providers Name Role Phone Daniel Aguilar DOeen Unavailable Dr. George Carroll Unavailable Tonya MASON Denice Unavailable Katy Noriega Unavailable Unavailable Unavailable Unavailable Problems Name Dates Details Abnormal ultrasound of breast (R92.8, 793.89) Comments: Dilated retroareolar ducts, discussed with pt on , per KF send to [facility] for opinion, pt refusing at this time, [...] of colon) (Z12.11, V76.51) Comments: 2014 sole carroll-- noncancerous poylp and repeat in 3yrs Status: [...] days Quantity: 90 {Tablet} Refills: 0 Ordered:15-Sep-2018 Tonya MASON Denice Start : 15-Sep-2018 Active METHOTREXATE, 2.5MG (Oral Tablet) 6 Tablet q week for 30 days Refills: 0 Ordered:05-Nov-2012 Etta Aguilar DO, DO, Kathleen Start : 05-Nov-2012 Active MULTIVITAMIN (Oral Liquid) for 0 days Refills: 0 Ordered:19-Aug-2018 Soheila Parikh PREDNISONE, 10MG (Oral Tablet) 1 Tablet prn for 90 days Refills: 0 Ordered:05-Nov-2012 LesviaEtta rodríguez DO, DO, Kathleen Start : 05-Nov-2012 Active VITAMIN D (CHOLECALCIFEROL), 400UNIT (Oral Tablet Chewable) 1 Tablet Chewable qd for 90 days Refills: 0 Ordered:05-Nov-2012 Etta Aguilar DO, DO, Kathleen Start : 05-Nov-2012 Active Vitamin [...] Limited Unilateral Result: Comments: See Note; NOTES: [facility] Imaging Services [address] [place] [address] 34846 Breast Limited Unilateral MR#: [id number] Acct: [id number] Name: SULEIMAN LI Rep #: [id number] : 1950 F 67 From: Juanpablo Perkins MD PCP: Hyacinth Aguilar DO Status: REG CLI Study: Breast Limited Unilateral Date of Exam: 09/07/18 Exam# [id number] Ordering Dr: Hyacinth Aguilar DO STUDY: ULTRASOUND [...] Juanpablo Perkins MD at 8:06 EST Tel [phone], Service support , CC: Hyacinth Aguilar DO Canal Structure Operator: Signed 03-Sep-2018 SCREENING MAMM (CAD), BILAT Result: Comments: See Note; NOTES: [facility] Imaging Services [address] [place] [address]28 SCREENING MAMM (CAD), BILAT MR#: [id number] Acct: [id number] Name: SULEIMAN LI Rep #: [id number] : 1950 F 67 From: Juanpablo Perkins MD PCP: Hyacinth Aguilar DO Status: [facility] CLI Study: SCREENING MAMM (CAD), BILAT Date of Exam: 09/03/18 Exam# [id number] Ordering Dr: Hiram Aguilar DO MAMMOGRAPHY - [...] delay biopsy of a clinically suspicious abnormality. [id number] Electronically Signed: Juanpablo Perkins MD 9 at 11:35 EST Tel [phone], Service support , CC: Hyacinth Aguilar DO Canal Structure Operator: Signed 26-Aug-2018 Dexa Bone Density Study Result: Comments: See Note; NOTES: [facility] Imaging Services [address] [place] [address] 04523 Dexa Bone Density Study MR#: [id number] Acct: [id number] Name: SULEIMAN LI Rep #: [id number] : 1950 F 67 From: Juanpablo Perkins MD PCP: Hyacinth Aguilar DO Status: REG CLI Study: Dexa Bone Density Study Date of Exam: 08/26/18 Exam# [id number] Ordering Dr: Hyacinth Aguilar TUDY: DUAL ENERGY [...] Juanpablo Perkins MD at 8:25 EST Tel [phone], Service support , CC: Hyacinth Aguilar DO Canal Structure Operator: Signed 20-Mar-2017 Hip 2-3 Views with Pelvis Result: Comments: See Note; NOTES: [facility] Imaging Services [address] [place] [address] 79456 Verdana 4d Hip 2-3 Views with Pelvis MR#: [id number] Acct: [id number] Name: SULEIMAN LI Rep #: [id number] : 1950 F 66 From: Juanpablo Perkins MD PCP: Hyacinth Aguilar DO Status: REG CLI Study: Hip 2-3 Views with Pelvis Date of Exam: 03/20/17 Exam# [id number] Ordering Dr: Maria C Maurer i, MD [...] Juanpablo Perkins MD at 13:35 EDT Tel [phone], Service support , CC: Elie Aguilar DO; Maria C Juares MD Canal Structure Operator: Signed 20-Mar-2017 Pelvis 1 or 2 Views Result: Comments: See Note; NOTES: [facility] Imaging Services [address] [place] [address]123 Verdana 4d Pelvis 1 or 2 Views MR#: [id number] Acct: [id number] Name: SULEIMAN LI Rep #: [id number] : 1950 F 66 From: Juanpablo Perkins MD PCP: Hyacinth Aguilar DO Status: REG CLI Study: Pelvis 1 or 2 Views Date of Exam: 03/20/17 Exam# [id number] Ordering Dr: Maria C Juares MD STUDY: [...] Juanpablo Perkins MD at 13:34 EDT Tel [phone], Service support , CC: Hyacinth Aguilar DO ; Maria C Juares MD Canal Structure Operator: Signed Immunization Name Dates Details Tdap (7 years and up) on: 01-Jun-2009 Comments: Lot #[id number]/5/2011Site-left deltoidDose0.5mlgiven by Germania Godfrey LPN Family History [...] kg/m2 Body Surface Area Calculated 1.77 m2 5-Tpe-597509:12 Comments: Dr. Kulkarni and had a glaucoma test donehearing wnl Pulse 80 /min Comments: Pattern: Regular Respiration [...] 0.00 cm Results Date Description Value Details :04 Glucose Comments: [facility] [address] [place], [address] GLU 86 mg/dL (Normal) Range: 74-106 Comments: Please note revised GLUCOSE reference range oqifueltr82/02/2018. 43-Yvb-17237:04 Lipid Profile Comments: [facility] [address] [place], [address] VLDL 12 mg/dL (Normal) Range: 5-40 LDL [...] 200-240 mg/dL Borderline >240 mg/dL High Risk 13-Pwm-631614:14 Synovial Fluid RBC, WBC AND Comments: [facility] [address] [place], [address] Diff PATH COM/SYFL Reviewed (Normal) Comments: Negative [...] Viscous (Normal) SYNOVIAL SOURCE RIGHT KNEE (Normal) 15-Hkn-378663:27 CBC W/Diff, Automated Comments: [facility] [address] [place], [address] Absolute Lymph 1.39 {X10_3/ul} (Normal) Range: 0.83-4.51 [...] 4.2-5.4 WBC 6.8 K/mm3 (Normal) Range: 4.4-11.0 83-Lha-411299:27 Comprehensive Metabolic Profil Comments: [facility] [address] [place], [place], [address] GAP 9 (Normal) Range: 5-15 CO2 28.0 [...] Comments: Please note revised GLUCOSE reference range qtpuvmpvp86/02/2018. 37-Mgi-347040:27 CRP Comments: [facility] [address] [place], [place], [id number] C-REACTIVE PROT 19.10 mg/L (Abnormal) Range: 0.0-3.0 Comments: C-Reactive Protein (CRP) provides useful information for thediagnosis, therapy and monitoring of inflammatory processesand associated diseases. For the evaluation of Relative Riskfor Cardiovascular Dise ase, a High Sensitivity CRP (HSCRP)should be ordered. 11-Pih-048857:27 Erythrocyte Sed Rate Comments: [facility] [address] [place], [address] SED RATE 22 mm/h (Normal) Range: 0-30 18-Kwm-153297:03 CBC W/Diff, Automated Comments: [facility] [address] [place], [id number] Absolute Lymph 1.70 {X10_3/ul} (Normal) Range: 0.83-4.51 [...] 4.2-5.4 WBC 4.3 K/mm3 (Abnormal) Range: 4.4-11.0 42-Wir-454140:03 Comprehensive Metabolic Profil Comments: [facility] [address] [place], [address] GAP 7 (Normal) Range: 5-15 CO2 [...] 7-18 GLU 94 mg/dL (Normal) Range: 70-110 45-Xcf-368492:50 CBC W/Diff, Automated Comments: [facility] [address] [place], [address] Absolute Lymph 1.21 {X10_3/ul} (Normal) Range: 0.83-4.51 [...] 4.2-5.4 WBC 5.1 K/mm3 (Normal) Range: 4.4-11.0 69-Cgo-711120:50 Comprehensive Metabolic Profil Comments: [facility] [address] [place], [address] GAP 10 (Normal) Range: 5-15 CO2 25.0 [...] 7-18 GLU 87 mg/dL (Normal) Range: 70-110 45-Ast-827462:14 CBC W/Diff, Automated Comments: [facility] [address] [place], [place], [address] Absolute Lymph 1.49 {X10_3/ul} (Normal) Range: 0.83-4.51 [...] Range: 4.4-11.0 :14 Comprehensive Metabolic Profil Comments: [facility] [address] [place], [place], [address] GAP 6 (Normal) Range: 5-15 CO2 30.0 [...] 7-18 GLU 91 mg/dL (Normal) Range: 70-110 2-Tgd-141738:25 CBC W/Diff, Automated Comments: [facility] [address] [place], [place], [address] Absolute Lymph 1.09 {X10_3/ul} (Normal) Range: 0.83-4.51 [...] 4.2-5.4 WBC 4.1 K/mm3 (Abnormal) Range: 4.4-11.0 6-Crr-307638:25 Comprehensive Metabolic Profil Comments: [facility] [address] [place], [place], [address] GAP 7 (Normal) Range: 5-15 CO2 27.0 [...] 7-18 GLU 85 mg/dL (Normal) Range: 70-110 90-Skx-648200:10 CBC W/Diff, Automated Comments: [facility] [address] [place], [address] Absolute Lymph 1.43 {X10_3/ul} (Normal) Range: 0.83-4.51 [...] 4.2-5.4 WBC 3.8 K/mm3 (Abnormal) Range: 4.4-11.0 05-Ykw-780393:10 Comprehensive Metabolic Profil Comments: [facility] [address] [place], [place], [address] GAP 8 (Normal) Range: 5-15 CO2 27.0 [...] Range: 70-110 :50 CBC W/Diff, Automated Comments: [facility] [address] [place], [place], [address] Absolute Lymph 1.21 {X10_3/ul} (Normal) Range: 0.83-4.51 [...] 4.2-5.4 WBC 4.7 K/mm3 (Normal) Range: 4.4-11.0 84-Uva-944932:50 Comprehensive Metabolic Profil Comments: [facility] [address] [place], [address] GAP 10 (Normal) Range: 5-15 CO2 24.0 [...] 7-18 GLU 86 mg/dL (Normal) Range: 70-110 9-Hkm-046674:02 CBC W/Diff, Automated Comments: Test performed at:[facility] [address] [place] [address] Absolute Lymph 1.28 {X10_3/ul} (Normal) [...] 4.2-5.4 WBC 4.5 K/mm3 (Normal) Range: 4.4-11.0 4-Mcz-813584:02 Comprehensive Metabolic Profil Comments: Test performed at:[facility] [address] [place], [place] [address] GAP 5 (Normal) Range: 5-15 CO2 27.0 [...] Comments: Please note revised CREATININE reference range onvmqkown15/22/2015. BUN 17 mg/dL (Normal) Range: 7-18 GLU 86 mg/dL (Normal) Range: 70-110 40-Gng-752697:56 CBC W/Diff, Automated Comments: Test performed at:[facility] [address] [place], [place] [address] Absolute Lymph 1.26 {X10_3/ul} (Normal) Range: 0.83-4.51 [...] 4.2-5.4 WBC 3.7 K/mm3 (Abnormal) Range: 4.4-11.0 42-Ftg-569312:56 Comprehensive Metabolic Profil Comments: Test performed at:[facility] [address] [place] [address] GAP 4 (Abnormal) Range: 5-15 [...] 7-18 GLU 90 mg/dL (Normal) Range: 70-110 30-Uqs-849336:22 CBC W/Diff, Automated Comments: Test performed at:[facility] [address] [place] [address] Absolute Lymph 1.06 {X10_3/ul} (Normal) Range: 0.83-4.51 [...] 4.2-5.4 WBC 3.9 K/mm3 (Abnormal) Range: 4.4-11.0 50-Mcc-478630:22 Comprehensive Metabolic Profil Comments: Test performed at:[facility] [address] [facility] [place], [place] [address] GAP 6 (Normal) Range: 5-15 CO2 29.0 [...] 7-18 GLU 98 mg/dL (Normal) Range: 70-110 21-Cad-478383:21 CBCD ALC 1.47 {X10_3/ul} (Normal) Range: 0.83-4.51 [...] 4.2-5.4 WBC 4.1 K/mm3 (Abnormal) Range: 4.4-11.0 89-Dhs-328794:21 CMP Comments: Comments: VECTRA GAP 6 (Normal) [...] 7-18 GLU 95 mg/dL (Normal) Range: 70-110 01-Qfx-583469:21 MISC (Normal) Comments: Comments: VECTRATest(s) Ordered: LILLYRA Comments: Sent directly to testing facility per ordering physician.08/30/14 1524 MAL 42-Qbl-838124:27 CBCD ANC 1.7 {X10_3/uL} (Abnormal) Range: 2.0-7.7 [...] 4.2-5.4 WBC 3.7 K/mm3 (Abnormal) Range: 4.4-11.0 59-Ecj-539099:27 CMP GAP 5 (Normal) Range: 5-15 CO2 [...] 7-18 GLU 102 mg/dL (Normal) Range: 70-110 93-Nhn-863195:41 Pap IG, Ct-Ng, Comments: Source.............Cervical;EndocervicalNo. of containers..01 CYTYC Thin Prep VialPERFORMED BY: WB [facility] [place] [facility] [id number] BY: =G Protein [place] HPV-hr 0 [facility] [id number] Information: [id number] Gonococcus, Nuc. Acid Amp Negative (Normal) Chlamydia, [...] endocervical component is identified.V72.31 ; Routine gynecological eiyiwdbkhzrQ96.81 ; Special screening examination, human papillomavirus [HPV]Julieth Doran [employer]or [employer]rain (ASCP) 08-Wgj-853878:00 BILAT SCRN DIGITAL & CAD Radiology Report See Note (Normal) Comments: MAMMOGRAPHY - BILATERAL SCREENING REASON FOR EXAM: Female, 62 years old. Routine annual screeningexamination. PERTINENT HISTORY: Non-contributory. TECHNIQUE: Digital examination. Med iolateral ob lique (MLO) andcraniocaudad (CC) views of both breasts were obtained. CAD: CAD wasperformed on this study. COMPARISON: Comparison is made with prior outside examination tnuphUwgdl37, 2005. FINDINGS:Th e breast composition is composed [...] Perkins M.D.November 10, 2012 at 2:52:10 PM [id number] Signed GP/GP If you are the referring physician and would like to consult with hilda lindquistogist who provided this interpretation, please contact Monica Bonilla at [phone]. If this radiologist is unavailable, youwill be directed to another radiologist to assist. If you are a patient with a question regarding this report, pleasecontactyour referring physician directly. Professional Interpretation Provided By: [employer], Phone , These documents contain legally protected [...] tructionofthese documents. Dictated on 11/05/12 1100 by Keith Perkins MDranscribed on 11/11/12 0322 by ITS IMPORTSign by Juanpablo Perkins MD on 11/11/12 0323 Sign by: Juanpablo Perkins MD 03-Ouw-986151:51 Hemoglobin Glyclated (HGB Comments: PATIENT NOT FASTINGPERFORMED BY: PAN [facility] Lmjjva1879 [facility] [id number] Information: [id number] A1C) (84646) Hemoglobin A1c 5.4 % (Normal) Range: 4.8-5.6 [...] COMP METABOLIC Comments: DR. AGUILAR ORDERED LIPIDDR. NINA ORDERED CMP CBCD A/G 1.0 {RATIO} (Normal) [...] CHOL 180 mg/dL (Normal) Comments: <200 mg/dL Bxesjpbdl691-229 mg/dL Borderline>240 mg/dL High Risk HDL 70 mg/dL (Normal) Comments: Reference RangeHDL <40 mg/dL Low HDL CholesterolHDL >or= 60 mg/dL High HDL Cholesterol LDL 99 mg/dL (Normal) Range: 0-130 TRIG 54 mg/dL (Normal) Comments: Serum Triglycerides Reference IntervalNormal <150 mg/dLBorderline high 150 - 199 mg/dLHigh 200 - 499 mg/ dLVery High > or = 500 mg/dL VLDL 11 mg/dL (Normal) Range: 5-40 1-Zrj-468004:05 Uric Acid Blood (37976) Comments: PATIENT NOT FASTINGPERFORMED BY: [facility] [id number] Uric Acid, Serum 2.7 mg/dL (Normal) Range: 2.4-8.2 :05 YEIMI (ANTINUCLEAR ANTIBODY) Comments: PATIENT NOT FASTINGPERFORMED BY: [facility] [id number] (40345) Antinuclear Antibodies Direct Negative (Normal) :05 C-REACTIVE PROTEIN (25498) Comments: PATIENT NOT FASTINGPERFORMED BY: [facility] [id number] C-Reactive Protein, Quant 12.9 mg/L (Abnormal) Range: 0.0-4.9 :05 CBC WITH MANUAL DIFF (11766) Comments: PATIENT NOT FASTINGClinical Information: ADD [id number], [id number] PERFORMED BY: [facility] [id number] Baso (Absolute) 0.1 {x10E3/uL} (Normal) Range: 0.0-0.2 [...] {x10E3/uL} (Normal) Range: 4.0-10.5 :05 CCP ANTIBODY (25972) Comments: PATIENT NOT FASTINGPERFORMED BY: [facility] [id number] CCP IgG Antibodies 20 U/mL (Abnormal) Range: 0-5 Comments: Negative: 0 - 5 Positive: >5 :05 METABOLIC PANEL, COMPREHENSIVE Comments: PATIENT NOT FASTINGPERFORMED BY: [facility] [id number] (61549) A/G Ratio 1.4 (Normal) Range: 1.1-2.5 Albumin, [...] Sodium, Serum 141 mmol/L (Normal) Range: 135-145 4-Ngq-847861:05 SED RATE ERYTHROCYTE (75285) Comments: PATIENT NOT FASTINGPERFORMED BY: BN [facility] Ndwjgowhak8303 [facility] [id number] Sedimentation Rate-Westergren 29 mm/h (Normal) Range: 0-30 6-Hzn-493254:05 TSH (69490) Comments: PATIENT NOT FASTINGPERFORMED BY: BN [facility] Otipckatwk5620 [facility] [id number] TSH 1.470 {uIU/mL} (Normal) Range: 0.450-4.500 Plan [...] in unspecified joint Planned Observations LIPID PANEL (96430)Indication: Encounter for screening for lipid disorder On: 2-Zwr-900514:20 Request GLUCOSE (78210)Indication: Family history of diabetes mellitus On: 5-Okh-561870:18 Request HPV automatic (85266)Indication: Screening for HPV (human papillomavirus) On: 12-Tzl-414460:39 Request Thin prep Pap (03572)Indication: Well woman exam On: 37-Ysi-158339:14 Request FECAL OCCULT HGB ASSAY- tubes sent home (27577)Indication: Well woman exam On: 04-Hyn-565324:14 Request FECAL OCCULT HGB ASSAY- tubes sent home (27629)Indication: Arthritis, rheumatic, acute or subacute On: 52-Iqy-289121:31 Request LIPID PANEL (56756)Indication: Family history of diabetes mellitus On: :28 Request Glucose, PP/2 Hour (26729)Indication: Family history of diabetes mellitus On: 26-Oyc-401628:28 Request Planned Procedures PNEUM VAC ADLT/IMUMNOSPR, SBC/INTRM On: 19-Aug-2018 Intent (03133)By: Hyacinth Aguilar DO Comments: 0.5 cc gicen sq lt arm lot [id number] exp 11/15/19 Hyacinth FELIX DEXA SCAN AXIAL SKELETON (29896)By: On: 19-Aug-2018 Intent Hyacinth Aguilar DO, DO, Kathleen SCREENING DIGITAL TOMOSYNTHESIS OF On: 19-Aug-2018 Intent BREAST (56756)By: Hyacinth Aguilar DO, DO, Kathleen DXA, BONE DENSITY, AXIAL SKELETON On: 05-Nov-2012 Intent (38437)By: Soheila Parikh LPN MAMMOGRAM, SCREENING, BOTH BREASTS On: 05-Nov-2012 Intent (17722)By: Soheila Parikh LPN MAMMOGRAM, SCREENING, BOTH BREASTS On: 22-Oct-2012 Intent (96353)By: Hyacinth Aguilar DO, DO, Kathleen DXA, BONE DENSITY, AXIAL SKELETON On: 22-Oct-2012 Intent (92644)By: Hyacinth Aguilar DO, DO, Kathleen Solu- Medrol Injection, 125mg On: 22-Jun-2009 Intent (J2930)By: Hyacinth Aguilar DO Comments: Given in left hipLot # [id number] 01/2012[facility] Hyacinth FELIX TDAP VACCINE >7 IM (90000)By: Lesvia On: 01-Jun-2009 Intent Hyacinth FELIX DO, Kathleen Comments: Lot #[id number]/5/2011Site-left deltoidDose0.5mlgiven by Germania Godfrey LPN Solu- Medrol Injection, 125mg On: 25-May-2009 Intent (J2930)By: Hyacinth Aguilar DO Comments: Lot #[id number]-right nxeEikc129ji/2mlgiven by Hyacinth Barrera LPN, DO Instructions Name [...] Patient Instructions Indication: Well woman exam Encounters Office Visit On: 15-Sep-2018 12:07 Encounter Reason: [...] The patient does have durable power of affirmative action officer and living will. The patient has noticed [...] Arm Pain (729.5) [facility] Payers [place]/Medicare Bertin ryan guarantor
--- OUTSIDE RECORDS SUMMARY | 2018-11-13 14:12 | XMS RPT_ITS | Continuity of Care Document ---
:1950 Author Organization [facility] Address [address] [facility] [address] [place] [address] Phone Care Team Providers Name Role Phone Hyacinth Aguilar DO Unavailable Dr. George Carroll Unavailable DEMARIO Parikh Unavailable Unavailable Unavailable Unavailable Problems Name Dates Details Annual Medicare Phyiscal WITHOUT abnormal findings (Renamed from Encounter for general adult medical examination without abnormal findings) (Z00.00, V70.9) Status: Active Arthritis (M19.90, 716.90) Status: Active Arthritis, rheumatic, acute or subacute (I00, 390) Comments: new dx Status: Active Body mass index 29.0-29.9, adult [...] Status: Active Non-smoker (Z78.9, V49.89) Status: Active Ovary sx Comments: 20's Status: Active Pain in unspecified joint (M25.50, 719.40) Status: Active Post-menopausal (Z78.0, V49.81) Status: Active Pregnancies () Comments: 2 Status: Active Tonsillectomy Status: Active Unspecified hearing loss, unspecified ear (H91.90, 389.9) Status: Active Medications Name Dates Details FOLIC ACID, 1MG (Oral Tablet) 1 Tablet qd for 90 days Refills: 0 Ordered:05-Nov-2012 Etta Aguilar DO, DO, Kathleen Start : 05-Nov-2012 Active METHOTREXATE, 2.5MG (Oral Tablet) 6 Tablet q week for 30 days Refills: 0 Ordered:05-Nov-2012 Etta Aguilar DO, DO, Kathleen Start : 05-Nov-2012 Active MULTIVITAMIN (Oral Liquid) for 0 days Refills: 0 Ordered:19-Aug-2018 Soheila Parikh LPNActrinidad PREDNISONE, 10MG (Oral Tablet) 1 Tablet prn for 90 days Refills: 0 Ordered:05-Nov-2012 Etta Aguilar DO, DO, Kathleen Start : 05-Nov-2012 Active VITAMIN D (CHOLECALCIFEROL), 400UNIT (Oral Tablet Chewable) 1 Tablet Chewable qd for 90 days Refills: 0 Ordered:05-Nov-2012 Etta Aguilar DO, DO, Kathleen Start : 05-Nov-2012 Active No Known Historical Medications PREDNISONE, 20MG [...] 30 {Tablet} Refills: 0 Ordered:05-Nov-2012 Soheila Parikh DEMARIO Start : 22-Jun-2009 End : 05-Nov-2012 Inactive [...] as of 19-Aug-2018 Procedures Date Value Details 20-Mar-2017 Hip 2-3 Views with Pelvis Result: Comments: See Note; NOTES: [facility] Imaging Services [address] [place] [address] Verdana 4d Hip 2-3 Views with Pelvis MR#: [id number] Acct: [id number] Name: SULEIMAN LI Rep #: [id number] : 1950 F 66 From: Juanpablo Perkins MD PCP: Hyacinth Aguilar DO Status: REG CLI Study: Hip 2-3 Views with Pelvis Date of Exam: 03/20/17 Exam# [id number] Ordering Dr: Maria C Maurer i, MD [...] Juanpablo Perkins MD at 13:35 EDT Tel [phone], Service support , CC: Elie Aguilar DO; Maria C Juares MD Home Demonstrator: Signed 20-Mar-2017 Pelvis 1 or 2 Views Result: Comments: See Note; NOTES: [facility] Imaging Services [address] [place] [address] Verdana 4d Pelvis 1 or 2 Views MR#: [id number] Acct: [id number] Name: SULEIMAN LI Rep #: [id number] : 1950 F 66 From: Juanpablo Perkins MD PCP: Hyacinth Aguilar DO Status: REG CLI Study: Pelvis 1 or 2 Views Date of Exam: 03/20/17 Exam# [id number] Ordering Dr: Maria C Juares MD STUDY: [...] Juanpablo Perkins MD at 13:34 EDT Tel [phone], Service support , CC: Hyacinth Aguilar DO ; Maria C Juares MD Home Demonstrator: Signed Immunization Name Dates Details Tdap (7 years and up) on: 01-Jun-2009 Comments: Lot #[id number]-left deltoidDose0.5mlgiven by Germania Godfrey LPN Family History [...] Active Vital Signs Date Test Result Details 6-Uqu-120065:12 Comments: Dr. Kulkarni and had a glaucoma [...] kg/m2 Body Surface Area Calculated 1.75 m2 78-Jvu-176323:06 Temperature 98.3 f Comments: Method: Oral Pulse [...] kg/m2 Body Surface Area Calculated 1.77 m2 2-Rwm-786152:24 Pulse 64 /min Comments: Pattern: Regular Respiration [...] 0.00 cm Results Date Description Value Details 81-Hbz-066553:14 Synovial Fluid RBC, WBC AND Comments: [facility] [address] [place], [place], [address] Diff PATH COM/SYFL Reviewed (Normal) Comments: Negative [...] Viscous (Normal) SYNOVIAL SOURCE RIGHT KNEE (Normal) 52-Icw-737155:27 CBC W/Diff, Automated Comments: [facility] [address] [place], [place], [address] Absolute Lymph 1.39 {X10_3/ul} (Normal) Range: 0.83-4.51 [...] 4.2-5.4 WBC 6.8 K/mm3 (Normal) Range: 4.4-11.0 89-Wjp-857818:27 Comprehensive Metabolic Profil Comments: [facility] [address] [place], [place], [address] GAP 9 (Normal) Range: 5-15 CO2 28.0 [...] Comments: Please note revised GLUCOSE reference range gbhsijzhk49/02/2018. 57-Tol-795066:27 CRP Comments: [facility] [address] [place], [place], [address] C-REACTIVE PROT 19.10 mg/L (Abnormal) Range: 0.0-3.0 Comments: C-Reactive Protein (CRP) provides useful information for thediagnosis, therapy and monitoring of inflammatory processesand associated diseases. For the evaluation of Relative Riskfor Cardiovascular Dise ase, a High Sensitivity CRP (HSCRP)should be ordered. 14-Lkp-968696:27 Erythrocyte Sed Rate Comments: [facility] [address] [place], [address] SED RATE 22 mm/h (Normal) Range: 0-30 82-Ewb-721588:03 CBC W/Diff, Automated Comments: [facility] [address] [place], [address] Absolute Lymph 1.70 {X10_3/ul} (Normal) Range: 0.83-4.51 [...] 4.2-5.4 WBC 4.3 K/mm3 (Abnormal) Range: 4.4-11.0 87-Nli-159267:03 Comprehensive Metabolic Profil Comments: [facility] [address] [place], [address] GAP 7 (Normal) Range: 5-15 [...] 7-18 GLU 94 mg/dL (Normal) Range: 70-110 61-Dmh-081389:50 CBC W/Diff, Automated Comments: [facility] [address] [place], [address] Absolute Lymph 1.21 {X10_3/ul} (Normal) [...] 4.2-5.4 WBC 5.1 K/mm3 (Normal) Range: 4.4-11.0 21-Hku-143023:50 Comprehensive Metabolic Profil Comments: [facility] [address] [place], [place], [address] GAP 10 (Normal) Range: 5-15 CO2 25.0 [...] 7-18 GLU 87 mg/dL (Normal) Range: 70-110 43-Psq-049415:14 CBC W/Diff, Automated Comments: [facility] [address] [place], [address] Absolute Lymph 1.49 {X10_3/ul} (Normal) Range: 0.83-4.51 [...] 4.2-5.4 WBC 5.8 K/mm3 (Normal) Range: 4.4-11.0 92-Fie-168307:14 Comprehensive Metabolic Profil Comments: [facility] [address] [place], [place], [address] GAP 6 (Normal) Range: 5-15 CO2 30.0 [...] 7-18 GLU 91 mg/dL (Normal) Range: 70-110 5-Vfo-442754:25 CBC W/Diff, Automated Comments: [facility] [address] [facility] [place], [address] Absolute Lymph 1.09 {X10_3/ul} (Normal) Range: 0.83-4.51 [...] 4.2-5.4 WBC 4.1 K/mm3 (Abnormal) Range: 4.4-11.0 3-Lmd-940551:25 Comprehensive Metabolic Profil Comments: [facility] [address] [facility] [place], [address] GAP 7 (Normal) Range: 5-15 CO2 27.0 [...] 7-18 GLU 85 mg/dL (Normal) Range: 70-110 74-Pnp-918174:10 CBC W/Diff, Automated Comments: [facility] [address] [place], [address] Absolute Lymph 1.43 {X10_3/ul} (Normal) Range: 0.83-4.51 [...] 4.2-5.4 WBC 3.8 K/mm3 (Abnormal) Range: 4.4-11.0 78-Ylc-207097:10 Comprehensive Metabolic Profil Comments: [facility] [address] [place], [place], [address] GAP 8 (Normal) Range: 5-15 CO2 27.0 [...] Range: 70-110 :50 CBC W/Diff, Automated Comments: [facility] [address] [place], [place], [address] Absolute Lymph 1.21 {X10_3/ul} (Normal) Range: 0.83-4.51 [...] Range: 4.4-11.0 :50 Comprehensive Metabolic Profil Comments: [facility] [address] [place], [address] GAP 10 (Normal) Range: 5-15 [...] 7-18 GLU 86 mg/dL (Normal) Range: 70-110 7-Wek-056612:02 CBC W/Diff, Automated Comments: Test performed at:[facility] [address] [place] [address] Absolute Lymph 1.28 {X10_3/ul} (Normal) [...] 4.2-5.4 WBC 4.5 K/mm3 (Normal) Range: 4.4-11.0 0-Tum-053082:02 Comprehensive Metabolic Profil Comments: Test performed at:[facility] [address] [place] [address] GAP 5 (Normal) Range: 5-15 CO2 27.0 [...] Comments: Please note revised CREATININE reference range niwjrprnj96/22/2015. BUN 17 mg/dL (Normal) Range: 7-18 GLU 86 mg/dL (Normal) Range: 70-110 88-Bpc-712922:56 CBC W/Diff, Automated Comments: Test performed at:[facility] [address] [place] [address] Absolute Lymph 1.26 {X10_3/ul} (Normal) Range: 0.83-4.51 [...] 4.2-5.4 WBC 3.7 K/mm3 (Abnormal) Range: 4.4-11.0 42-Bcj-625736:56 Comprehensive Metabolic Profil Comments: Test performed at:[facility] [address] [facility] [place] [address] GAP 4 (Abnormal) Range: 5-15 [...] 7-18 GLU 90 mg/dL (Normal) Range: 70-110 50-Ert-488373:22 CBC W/Diff, Automated Comments: Test performed at:[facility] [address] [place], [place] [address] Absolute Lymph 1.06 {X10_3/ul} (Normal) Range: 0.83-4.51 [...] 4.2-5.4 WBC 3.9 K/mm3 (Abnormal) Range: 4.4-11.0 60-Vgq-273297:22 Comprehensive Metabolic Profil Comments: Test performed at:[facility] [address] [place] [address] GAP 6 (Normal) Range: 5-15 CO2 29.0 [...] 7-18 GLU 98 mg/dL (Normal) Range: 70-110 81-Wgz-895551:21 CBCD ALC 1.47 {X10_3/ul} (Normal) Range: 0.83-4.51 [...] 4.2-5.4 WBC 4.1 K/mm3 (Abnormal) Range: 4.4-11.0 :21 CMP Comments: Comments: VECTRA GAP 6 (Normal) [...] 7-18 GLU 95 mg/dL (Normal) Range: 70-110 50-Zge-624457:21 MISC (Normal) Comments: Comments: VECTRATest(s) Ordered: LILLYRA Comments: Sent directly to testing facility per ordering physician.08/30/14 1524 MAL :27 CBCD ANC 1.7 {X10_3/uL} (Abnormal) Range: 2.0-7.7 [...] 4.2-5.4 WBC 3.7 K/mm3 (Abnormal) Range: 4.4-11.0 05-Vui-357555:27 CMP GAP 5 (Normal) Range: 5-15 CO2 [...] 7-18 GLU 102 mg/dL (Normal) Range: 70-110 77-Pze-110281:41 Pap IG, Ct-Ng, Comments: Source.............Cervical;EndocervicalNo. of containers..01 CYTYC Thin Prep VialPERFORMED BY: WB [employer] [place]120 [facility] [id number] BY: =G [facility] Zdiyhgngly87 HPV-hr 0 [facility] [id number] Information: [id number] Gonococcus, Nuc. Acid Amp Negative (Normal) Chlamydia, [...] endocervical component is identified.V72.31 ; Routine gynecological tqgtthejfdmK45.81 ; Special screening examination, human papillomavirus [HPV]Julieth Doran Alining Inspector (ASCP) 40-Jys-582472:00 BILAT SCRN DIGITAL & CAD Radiology Report See Note (Normal) Comments: MAMMOGRAPHY - BILATERAL SCREENING REASON FOR EXAM: Female, 62 years old. Routine annual screeningexamination. PERTINENT HISTORY: Non-contributory. TECHNIQUE: Digital examination. Med iolateral ob lique (MLO) andcraniocaudad (CC) views of both breasts were obtained. CAD: CAD wasperformed on this study. COMPARISON: Comparison is made with prior outside examination xdypsItuyb55, 2005. FINDINGS:Th e breast composition is composed [...] Perkins M.D.November 10, 2012 at 2:52:10 PM [id number] Signed GP/GP If you are the referring physician and would like to consult with hilda iologist who provided this interpretation, please contact Monica Bonilla at [phone]. If this radiologist is unavailable, youwill be directed to another radiologist to assist. If you are a patient with a question regarding this report, pleasecontactyour referring physician directly. Professional Interpretation Provided By: [employer], Phone , These documents contain legally protected [...] IMPORTSign by Juanpablo Perkins MD on 11/11/12 032 Sign by: Juanpablo Perkins MD 83-Vnu-987320:51 Hemoglobin Glyclated (HGB Comments: PATIENT NOT FASTINGPERFORMED BY: PAN [facility] Whmrjg7596 [facility] [id number] Information: [id number] A1C) (13822) Hemoglobin A1c 5.4 % (Normal) Range: 4.8-5.6 Comments: . Increased risk for diabetes: 5.7 - 6.4 Diabetes: >6.4 Glycemic control for adults with diabetes: <7.0 :08 CBCD Comments: DR. AGUILAR ORDERED LIPIDDR. NINA ORDERED CMP CBCD ABSOLUTE NEUT 1.9 3/uL [...] COMP METABOLIC Comments: DR. AGUILAR ORDERED LIPIDDR. JOONLANCORNELL ORDERED CMP CBCD A/G 1.0 {RATIO} (Normal) [...] CHOL 180 mg/dL (Normal) Comments: <200 mg/dL Knqyoqpuc458-145 mg/dL Borderline>240 mg/dL High Risk HDL 70 mg/dL (Normal) Comments: Reference RangeHDL <40 mg/dL Low HDL CholesterolHDL >or= 60 mg/dL High HDL Cholesterol LDL 99 mg/dL (Normal) Range: 0-130 TRIG 54 mg/dL (Normal) Comments: Serum Triglycerides Reference IntervalNormal <150 mg/dLBorderline high 150 - 199 mg/dLHigh 200 - 499 mg/ dLVery High > or = 500 mg/dL VLDL 11 mg/dL (Normal) Range: 5-40 0-Brl-698862:05 Uric Acid Blood (18786) Comments: PATIENT NOT FASTINGPERFORMED BY: [facility] [address] [id number] Uric Acid, Serum 2.7 mg/dL (Normal) Range: 2.4-8.2 :05 YEIMI (ANTINUCLEAR ANTIBODY) Comments: PATIENT NOT FASTINGPERFORMED BY: [facility] [employer] [id number] (73855) Antinuclear Antibodies Direct Negative (Normal) :05 C-REACTIVE PROTEIN (79072) Comments: PATIENT NOT FASTINGPERFORMED BY: [facility] [id number] C-Reactive Protein, Quant 12.9 mg/L (Abnormal) Range: 0.0-4.9 :05 CBC WITH MANUAL DIFF (89304) Comments: PATIENT NOT FASTINGClinical Information: ADD [id number], [id number] PERFORMED BY: [facility] [id number] Baso (Absolute) 0.1 {x10E3/uL} (Normal) Range: 0.0-0.2 [...] {x10E3/uL} (Normal) Range: 4.0-10.5 :05 CCP ANTIBODY (35471) Comments: PATIENT NOT FASTINGPERFORMED BY: [facility] [id number] CCP IgG Antibodies 20 U/mL (Abnormal) Range: 0-5 Comments: Negative: 0 - 5 Positive: >5 :05 METABOLIC PANEL, COMPREHENSIVE Comments: PATIENT NOT FASTINGPERFORMED BY: [facility] [id number] (03272) A/G Ratio 1.4 (Normal) Range: 1.1-2.5 Albumin, [...] Sodium, Serum 141 mmol/L (Normal) Range: 135-145 2-Cvi-741627:05 SED RATE ERYTHROCYTE (57518) Comments: PATIENT NOT FASTINGPERFORMED BY: [facility] Yshxmuevxt8501 [facility] [id number] Sedimentation Rate-Westergren 29 mm/h (Normal) Range: 0-30 6-Xww-981410:05 TSH (36417) Comments: PATIENT NOT FASTINGPERFORMED BY: [facility] Qsrqnkxngj6122 [facility] [id number] TSH 1.470 {uIU/mL} (Normal) Range: 0.450-4.500 Plan of Care Name Dates Details Instructions Annual Medicare Phyiscal WITHOUT abnormal findings (Renamed [...] in unspecified joint Planned Observations LIPID PANEL (51367)Indication: Encounter for screening for lipid disorder On: 2-Xql-468489:20 Request GLUCOSE (34570)Indication: Family history of diabetes mellitus On: 3-Ozo-497927:18 Request HPV automatic (47892)Indication: Screening for HPV (human papillomavirus) On: 96-Auh-141325:39 Request Thin prep Pap (21376)Indication: Well woman exam On: 26-Bqq-322074:14 Request FECAL OCCULT HGB ASSAY- tubes sent home (25433)Indication: Well woman exam On: 67-Yko-738515:14 Request FECAL OCCULT HGB ASSAY- tubes sent home (07333)Indication: Arthritis, rheumatic, acute or subacute On: 07-Rub-975587:31 Request LIPID PANEL (67749)Indication: Family history of diabetes mellitus On: :28 Request Glucose, PP/2 Hour (46663)Indication: Family history of diabetes mellitus On: :28 Request Planned Procedures PNEUM VAC ADLT/IMUMNOSPR, SBC/INTRM On: 19-Aug-2018 Intent (81423)By: Hyacinth Aguilar DO Comments: 0.5 cc gicen sq lt arm lot [id number] exp 11/15/19 Hyacinth FELIX DEXA SCAN AXIAL SKELETON (01046)By: On: 19-Aug-2018 Intent Hyacinth Aguilar DO, DO, Kathleen SCREENING DIGITAL TOMOSYNTHESIS OF On: 19-Aug-2018 Intent BREAST (32331)By: Hyacinth Aguilar DO, DO, Kathleen DXA, BONE DENSITY, AXIAL SKELETON On: 05-Nov-2012 Intent (91275)By: Soheila Parikh LPN MAMMOGRAM, SCREENING, BOTH BREASTS On: 05-Nov-2012 Intent (27553)By: Soheila Parikh LPN MAMMOGRAM, SCREENING, BOTH BREASTS On: 22-Oct-2012 Intent (44828)By: Hyacinth Aguilar DO, DO, Kathleen DXA, BONE DENSITY, AXIAL SKELETON On: 22-Oct-2012 Intent (31749)By: Hyacinth Aguilar DO, DO, Kathleen Solu- Medrol Injection, 125mg On: 22-Jun-2009 Intent (J2930)By: Hyacinth Aguilar DO Comments: Given in left hipLot # [id number] 01/2012CDH Hyacinth FELIX TDAP VACCINE >7 IM (71513)By: Lesvia On: 01-Jun-2009 Intent Hyacinth FELIX DO, Kathleen Comments: Lot #[id number]-left deltoidDose0.5mlgiven by Germania Godfrey LPN Solu- Medrol Injection, 125mg On: 25-May-2009 Intent (J2930)By: Hyacinth Aguilar DO Comments: Lot #[id number]-right qjjSaak464jp/2mlgiven by Hyacinth Barrera LPN, DO Instructions Name Dates Details Non-smoker : How to access health information online Indication: Non-smoker Non-smoker : How to access health information online - Detail Indication: Non-smoker Non-smoker : Patient Instructions Indication: Non-smoker Well woman exam : Patient Instructions Indication: Well woman exam Encounters Office Visit On: 19-Aug-2018 10:04 Encounter Reason: [...] The patient does have durable power of estate planning attorney and living will. The patient has [...] Arm Pain (729.5) [facility] Payers Ribera/Medicare Adv Kimberlee Li; shelby guarantor
--- OUTSIDE RECORDS SUMMARY | 2018-11-13 14:12 | XMS RPT_ITS | Continuity of Care Document ---
:1950 Author Organization [facility] Address [address] [place] [address] Phone Care Team Providers Name Role Phone [...] with Pelvis Result: Comments: See Note; NOTES: [facility] Imaging Services [address] [place] [address] Verdana 4d Hip 2-3 Views with Pelvis MR#: [id number] Acct: [id number] Name: SULEIMAN LI Rep #: [id number] : 1950 F 66 From: Juanpablo Perkins MD PCP: Hyacinth Aguilar DO Status: REG CLI Study: Hip 2-3 Views with Pelvis Date of Exam: 03/20/17 Exam# [id number] Ordering Dr: Maria C Maurer i, MD [...] Juanpablo Perkins MD at 13:35 EDT Tel [phone], Service support , CC: Elie Aguilar DO; Maria C Juares MD [employer] Drawer: Signed 20-Mar-2017 Pelvis 1 or 2 Views Result: Comments: See Note; NOTES: [facility] Imaging Services [address] [place] [address] Verdana 4d Pelvis 1 or 2 Views MR#: [id number] Acct: [id number] Name: SULEIMAN LI Rep #: [id number] : 1950 F 66 From: Juanpablo Perkins MD PCP: Hyacinth Aguilar DO Status: REG CLI Study: Pelvis 1 or 2 Views Date of Exam: 03/20/17 Exam# [id number] Ordering Dr: Maria C Juares MD STUDY: [...] Juanpablo Perkins MD at 13:34 EDT Tel [phone], Service support , CC: Hyacinth Aguilar DO ; Maria C Juares MD Opt[employer] Drawer: Signed Immunization Name Dates Details Tdap (7 years and up) on: 01-Jun-2009 Comments: Lot #[id number]-left deltoidDose0.5mlgiven by Germania Godfrey LPN Family History [...] Active Vital Signs Date Test Result Details 7-Ujg-973827:12 Comments: Dr. Kulkarni and had a glaucoma [...] kg/m2 Body Surface Area Calculated 1.75 m2 19-Ajb-172807:06 Temperature 98.3 f Comments: Method: Oral Pulse [...] kg/m2 Body Surface Area Calculated 1.77 m2 1-Jqw-259257:24 Pulse 64 /min Comments: Pattern: Regular Respiration [...] 0.00 cm Results Date Description Value Details 20-Xcn-372618:14 Synovial Fluid RBC, WBC AND Comments: [facility] [address] [place], [place], [id number] Diff PATH COM/SYFL Reviewed (Normal) Comments: Negative [...] Viscous (Normal) SYNOVIAL SOURCE RIGHT KNEE (Normal) 63-Hsb-541947:27 CBC W/Diff, Automated Comments: [facility] [address] [place], [place], [address] Absolute Lymph 1.39 {X10_3/ul} (Normal) Range: 0.83-4.51 [...] 4.2-5.4 WBC 6.8 K/mm3 (Normal) Range: 4.4-11.0 85-Isz-413803:27 Comprehensive Metabolic Profil Comments: [facility] [address] [place], [place], [id number] GAP 9 (Normal) Range: 5-15 CO2 28.0 [...] Comments: Please note revised GLUCOSE reference range uyjnxcvvc63/02/2018. 72-Tsz-658126:27 CRP Comments: [facility] [address] [place], [place], [id number] C-REACTIVE PROT 19.10 mg/L (Abnormal) Range: 0.0-3.0 Comments: C-Reactive Protein (CRP) provides useful information for thediagnosis, therapy and monitoring of inflammatory processesand associated diseases. For the evaluation of Relative Riskfor Cardiovascular Dise ase, a High Sensitivity CRP (HSCRP)should be ordered. 85-Tzs-917716:27 Erythrocyte Sed Rate Comments: [facility] [address] [place], [address] SED RATE 22 mm/h (Normal) Range: 0-30 48-Cuo-883512:03 CBC W/Diff, Automated Comments: [facility] [address] [place], [address] Absolute Lymph 1.70 {X10_3/ul} (Normal) Range: 0.83-4.51 [...] 4.2-5.4 WBC 4.3 K/mm3 (Abnormal) Range: 4.4-11.0 29-Qqw-894859:03 Comprehensive Metabolic Profil Comments: [facility] [address] [place] [place], [address] GAP 7 (Normal) Range: 5-15 [...] 7-18 GLU 94 mg/dL (Normal) Range: 70-110 24-Cds-893698:50 CBC W/Diff, Automated Comments: [facility] [address] [place], [address] Absolute Lymph 1.21 {X10_3/ul} (Normal) [...] 4.2-5.4 WBC 5.1 K/mm3 (Normal) Range: 4.4-11.0 67-Bwx-559499:50 Comprehensive Metabolic Profil Comments: [facility] [address] [place], [place], [address] GAP 10 (Normal) Range: 5-15 CO2 25.0 [...] 7-18 GLU 87 mg/dL (Normal) Range: 70-110 00-Ebi-154797:14 CBC W/Diff, Automated Comments: [facility] [address] [place], [address] Absolute Lymph 1.49 {X10_3/ul} (Normal) Range: 0.83-4.51 [...] 4.2-5.4 WBC 5.8 K/mm3 (Normal) Range: 4.4-11.0 10-Qzx-089615:14 Comprehensive Metabolic Profil Comments: [facility] [address] [place], [place], [address] GAP 6 (Normal) Range: 5-15 CO2 30.0 [...] 7-18 GLU 91 mg/dL (Normal) Range: 70-110 2-Iaz-879655:25 CBC W/Diff, Automated Comments: [facility] [address] [facility] [place], [address] Absolute Lymph 1.09 {X10_3/ul} (Normal) [...] 4.2-5.4 WBC 4.1 K/mm3 (Abnormal) Range: 4.4-11.0 1-Uol-938834:25 Comprehensive Metabolic Profil Comments: [facility] [address] [facility] [place], [address] GAP 7 (Normal) Range: 5-15 [...] 7-18 GLU 85 mg/dL (Normal) Range: 70-110 50-Mav-833217:10 CBC W/Diff, Automated Comments: [facility] [address] [place], [address] Absolute Lymph 1.43 {X10_3/ul} (Normal) Range: 0.83-4.51 [...] 4.2-5.4 WBC 3.8 K/mm3 (Abnormal) Range: 4.4-11.0 35-Nof-439095:10 Comprehensive Metabolic Profil Comments: [facility] [address] [place], [place], [address] GAP 8 (Normal) Range: 5-15 CO2 27.0 [...] Range: 70-110 :50 CBC W/Diff, Automated Comments: [facility] [address] [place], [place], [address] Absolute Lymph 1.21 {X10_3/ul} (Normal) Range: 0.83-4.51 [...] Range: 4.4-11.0 :50 Comprehensive Metabolic Profil Comments: [facility] [address] [place], [address] GAP 10 (Normal) Range: 5-15 [...] 7-18 GLU 86 mg/dL (Normal) Range: 70-110 9-Uxj-591146:02 CBC W/Diff, Automated Comments: Test performed at:[facility] [address] [place] [address] Absolute Lymph 1.28 {X10_3/ul} (Normal) [...] 4.2-5.4 WBC 4.5 K/mm3 (Normal) Range: 4.4-11.0 7-Fyz-029491:02 Comprehensive Metabolic Profil Comments: Test performed at:[facility] [address] [place] [address] GAP 5 (Normal) Range: 5-15 CO2 27.0 [...] Comments: Please note revised CREATININE reference range vdwnmiayg60/22/2015. BUN 17 mg/dL (Normal) Range: 7-18 GLU 86 mg/dL (Normal) Range: 70-110 45-Zen-758292:56 CBC W/Diff, Automated Comments: Test performed at:[facility] [address] [place] [address] Absolute Lymph 1.26 {X10_3/ul} (Normal) Range: 0.83-4.51 [...] 4.2-5.4 WBC 3.7 K/mm3 (Abnormal) Range: 4.4-11.0 21-Odc-967209:56 Comprehensive Metabolic Profil Comments: Test performed at:[facility] [address]tkl[address] [facility] [place] [address] GAP 4 (Abnormal) Range: 5-15 [...] 7-18 GLU 90 mg/dL (Normal) Range: 70-110 75-Fvf-247062:22 CBC W/Diff, Automated Comments: Test performed at:[facility] [address] [place], [place] [address] Absolute Lymph 1.06 {X10_3/ul} (Normal) Range: 0.83-4.51 [...] 4.2-5.4 WBC 3.9 K/mm3 (Abnormal) Range: 4.4-11.0 29-Oko-900318:22 Comprehensive Metabolic Profil Comments: Test performed at:[facility] [address] [place] [address] GAP 6 (Normal) Range: 5-15 CO2 29.0 [...] 7-18 GLU 98 mg/dL (Normal) Range: 70-110 83-Rjj-351295:21 CBCD ALC 1.47 {X10_3/ul} (Normal) Range: 0.83-4.51 [...] 7-18 GLU 95 mg/dL (Normal) Range: 70-110 85-Wut-298960:21 MISC (Normal) Comments: Comments: VECTRATest(s) Ordered: LILLYRA [...] 4.2-5.4 WBC 3.7 K/mm3 (Abnormal) Range: 4.4-11.0 71-Pod-308222:27 CMP GAP 5 (Normal) Range: 5-15 CO2 [...] 7-18 GLU 102 mg/dL (Normal) Range: 70-110 53-Lnu-379885:41 Pap IG, Ct-Ng, Comments: Source.............Cervical;EndocervicalNo. of containers..01 CYTYC Thin Prep VialPERFORMED BY: WB [employer] Karm[employer]120 [facility] [id number] BY: =G [facility] Jnugzgzdth52 HPV-hr 0 [facility] [id number] Information: [id number] Gonococcus, Nuc. Acid Amp Negative (Normal) Chlamydia, [...] endocervical component is identified.V72.31 ; Routine gynecological lvzucsurlsmM83.81 ; Special screening examination, human papillomavirus [HPV]Julieth Doran Commercial Food Instructor (ASCP) 50-Tbd-285187:00 BILAT SCRN DIGITAL & CAD Radiology Report See Note (Normal) Comments: MAMMOGRAPHY - BILATERAL SCREENING REASON FOR EXAM: Female, 62 years old. Routine annual screeningexamination. PERTINENT HISTORY: Non-contributory. TECHNIQUE: Digital examination. Med iolateral ob lique (MLO) andcraniocaudad (CC) views of both breasts were obtained. CAD: CAD wasperformed on this study. COMPARISON: Comparison is made with prior outside examination diwjaLgbgx81, 2005. FINDINGS:Th e breast composition is composed [...] Perkins M.D.November 10, 2012 at 2:52:10 PM [id number] Signed GP/GP If you are the referring physician and would like to consult with hilda iologist who provided this interpretation, please contact Monica Bonilla at [phone]. If this radiologist is unavailable, youwill be directed to another radiologist to assist. If you are a patient with a question regarding this report, pleasecontactyour referring physician directly. Professional Interpretation Provided By: [employer], Phone , These documents contain legally protected [...] 11/11/12 032 Sign by: Juanpablo Perkins MD 81-Vrt-412712:51 Hemoglobin Glyclated (HGB Comments: PATIENT NOT FASTINGPERFORMED BY: PAN [facility] Wqazpu3537 [facility] [id number] Information: [id number] A1C) (65022) Hemoglobin A1c 5.4 % (Normal) Range: 4.8-5.6 [...] CHOL 180 mg/dL (Normal) Comments: <200 mg/dL Uvwjyijyl303-639 mg/dL Borderline>240 mg/dL High Risk HDL 70 mg/dL (Normal) Comments: Reference RangeHDL <40 mg/dL Low HDL CholesterolHDL >or= 60 mg/dL High HDL Cholesterol LDL 99 mg/dL (Normal) Range: 0-130 TRIG 54 mg/dL (Normal) Comments: Serum Triglycerides Reference IntervalNormal <150 mg/dLBorderline high 150 - 199 mg/dLHigh 200 - 499 mg/ dLVery High > or = 500 mg/dL VLDL 11 mg/dL (Normal) Range: 5-40 5-Zvq-353929:05 Uric Acid Blood (75747) Comments: PATIENT NOT FASTINGPERFORMED BY: [facility] [address] [id number] Uric Acid, Serum 2.7 mg/dL (Normal) Range: 2.4-8.2 :05 YEIMI (ANTINUCLEAR ANTIBODY) Comments: PATIENT NOT FASTINGPERFORMED BY: [facility] [id number] (02090) Antinuclear Antibodies Direct Negative (Normal) :05 C-REACTIVE PROTEIN (20637) Comments: PATIENT NOT FASTINGPERFORMED BY: [facility] [id number] C-Reactive Protein, Quant 12.9 mg/L (Abnormal) Range: 0.0-4.9 :05 CBC WITH MANUAL DIFF (40662) Comments: PATIENT NOT FASTINGClinical Information: ADD [id number], [id number] PERFORMED BY: [facility] [id number] Baso (Absolute) 0.1 {x10E3/uL} (Normal) Range: 0.0-0.2 [...] {x10E3/uL} (Normal) Range: 4.0-10.5 :05 CCP ANTIBODY (51599) Comments: PATIENT NOT FASTINGPERFORMED BY: [facility] [id number] CCP IgG Antibodies 20 U/mL (Abnormal) Range: 0-5 Comments: Negative: 0 - 5 Positive: >5 :05 METABOLIC PANEL, COMPREHENSIVE Comments: PATIENT NOT FASTINGPERFORMED BY: [facility] [id number] (81934) A/G Ratio 1.4 (Normal) Range: 1.1-2.5 Albumin, [...] Sodium, Serum 141 mmol/L (Normal) Range: 135-145 3-Bxa-264994:05 SED RATE ERYTHROCYTE (96398) Comments: PATIENT NOT FASTINGPERFORMED BY: [facility] Prjtglfsdt3426 [facility] [id number] Sedimentation Rate-Westergren 29 mm/h (Normal) Range: 0-30 7-Fnm-689515:05 TSH (10013) Comments: PATIENT NOT FASTINGPERFORMED BY: [facility] Podqzlcjze2259 [facility] [id number] TSH 1.470 {uIU/mL} (Normal) Range: 0.450-4.500 Plan [...] in unspecified joint Planned Observations LIPID PANEL (74463)Indication: Encounter for screening for lipid disorder On: 7-Ckt-741405:20 Request GLUCOSE (99472)Indication: Family history of diabetes mellitus On: 5-Pqd-111328:18 Request HPV automatic (40525)Indication: Screening for HPV (human papillomavirus) On: 94-Cla-619987:39 Request Thin prep Pap (86617)Indication: Well woman exam On: 21-Mzs-541284:14 Request FECAL OCCULT HGB ASSAY- tubes sent home (37643)Indication: Well woman exam On: 51-Vwi-531018:14 Request FECAL OCCULT HGB ASSAY- tubes sent home (09242)Indication: Arthritis, rheumatic, acute or subacute On: 42-Mjh-762790:31 Request LIPID PANEL (06181)Indication: Family history of diabetes mellitus On: :28 Request Glucose, PP/2 Hour (75670)Indication: Family history of diabetes mellitus On: :28 Request Planned Procedures PNEUM VAC ADLT/IMUMNOSPR, SBC/INTRM On: 19-Aug-2018 Intent (71501)By: Hyacinth Aguilar DO Comments: 0.5 cc gicen sq lt arm lot [id number] exp 11/15/19 Hyacinth FELIX DEXA SCAN AXIAL SKELETON (71056)By: On: 19-Aug-2018 Intent Hyacinth Aguilar DO, DO, Kathleen SCREENING DIGITAL TOMOSYNTHESIS OF On: 19-Aug-2018 Intent BREAST (79953)By: Hyacinth Aguilar DO, DO, Kathleen DXA, BONE DENSITY, AXIAL SKELETON On: 05-Nov-2012 Intent (15558)By: Soheila Parikh LPN MAMMOGRAM, SCREENING, BOTH BREASTS On: 05-Nov-2012 Intent (77050)By: Soheila Parikh LPN MAMMOGRAM, SCREENING, BOTH BREASTS On: 22-Oct-2012 Intent (82042)By: Hyacinth Aguilar DO, DO, Kathleen DXA, BONE DENSITY, AXIAL SKELETON On: 22-Oct-2012 Intent (95968)By: Hyacinth Aguilar DO, DO, Kathleen Solu- Medrol Injection, 125mg On: 22-Jun-2009 Intent (J2930)By: Hyacinth Aguilar DO Comments: Given in left hipLot # [id number] 01/2012CDH Hyacinth FELIX TDAP VACCINE >7 IM (31085)By: Lesvia On: 01-Jun-2009 Intent Hyacinth FELIX DO, Kathleen Comments: Lot #[id number]-left deltoidDose0.5mlgiven by Germania Godfrey LPN Solu- Medrol Injection, 125mg On: 25-May-2009 Intent (J2930)By: Hyacinth Aguilar DO Comments: Lot #[id number]-right mzhDzxk474yj/2mlgiven by Hyacinth Barrera LPN, DO Instructions Name [...] 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 The patient has noticed [...] Arm Pain (729.5) [facility] Payers [place]/Medicare Adv Kimberlee Li; shelby guarantor
--- OUTSIDE RECORDS SUMMARY | 2018-11-13 14:13 | XMS RPT_ITS | Continuity of Care Document ---
:1950 Author Organization [facility] Address [address] [place] [address] Phone Care Team Providers Name Role Phone [...] with Pelvis Result: Comments: See Note; NOTES: [facility] Imaging Services [address] [place] [address] Verdana 4d Hip 2-3 Views with Pelvis MR#: [id number] Acct: [id number] Name: SULEIMAN LI Rep #: [id number] : 1950 F 66 From: Juanpablo Perkins MD PCP: Hyacinth Aguilar DO Status: REG CLI Study: Hip 2-3 Views with Pelvis Date of Exam: 03/20/17 Exam# [id number] Ordering Dr: Maria C Maurer i, MD [...] Juanpablo Perkins MD at 13:35 EDT Tel [phone], Service support , CC: Elie Aguilar DO; Maria C Juares MD Motor Expert: Signed 20-Mar-2017 Pelvis 1 or 2 Views Result: Comments: See Note; NOTES: [facility] Imaging Services [address] [place] [address] Verdana 4d Pelvis 1 or 2 Views MR#: [id number] Acct: [id number] Name: SULEIMAN LI Rep #: [id number] : 1950 F 66 From: Juanpablo Perkins MD PCP: Hyacinth Aguilar DO Status: REG CLI Study: Pelvis 1 or 2 Views Date of Exam: 03/20/17 Exam# [id number] Ordering Dr: Maria C Juares MD STUDY: [...] Juanpablo Perkins MD at 13:34 EDT Tel [phone], Service support , CC: Hyacinth Aguilar DO ; Maria C Juares MD Motor Expert: Signed Immunization Name Dates Details Tdap (7 years and up) on: 01-Jun-2009 Comments: Lot #[id number]-left deltoidDose0.5mlgiven by Germania Godfrey LPN Family History [...] Active Vital Signs Date Test Result Details 0-Llm-196890:12 Comments: Dr. Kulkarni and had a glaucoma [...] kg/m2 Body Surface Area Calculated 1.75 m2 32-Ana-929885:06 Temperature 98.3 f Comments: Method: Oral Pulse [...] kg/m2 Body Surface Area Calculated 1.77 m2 5-Afr-103131:24 Pulse 64 /min Comments: Pattern: Regular Respiration [...] 0.00 cm Results Date Description Value Details 54-Pjd-822886:14 Synovial Fluid RBC, WBC AND Comments: [facility] [address] [place], [place], [id number] Diff PATH COM/SYFL Reviewed (Normal) Comments: Negative [...] Viscous (Normal) SYNOVIAL SOURCE RIGHT KNEE (Normal) 06-Mlh-839595:27 CBC W/Diff, Automated Comments: [facility] [address] [place], [place], [id number] Absolute Lymph 1.39 {X10_3/ul} (Normal) Range: 0.83-4.51 [...] 4.2-5.4 WBC 6.8 K/mm3 (Normal) Range: 4.4-11.0 80-Tfb-920590:27 Comprehensive Metabolic Profil Comments: [facility] [address] [place], [place], [id number] GAP 9 (Normal) Range: 5-15 CO2 28.0 [...] Comments: Please note revised GLUCOSE reference range eefthoqhr88/02/2018. 24-Mjc-621757:27 CRP Comments: [facility] [address] [place], [place], [id number] C-REACTIVE PROT 19.10 mg/L (Abnormal) Range: 0.0-3.0 Comments: C-Reactive Protein (CRP) provides useful information for thediagnosis, therapy and monitoring of inflammatory processesand associated diseases. For the evaluation of Relative Riskfor Cardiovascular Dise ase, a High Sensitivity CRP (HSCRP)should be ordered. 67-Iej-889046:27 Erythrocyte Sed Rate Comments: [facility] [address] [place], [address] SED RATE 22 mm/h (Normal) Range: 0-30 09-Trc-519506:03 CBC W/Diff, Automated Comments: [facility] [address] [place], [id number] Absolute Lymph 1.70 {X10_3/ul} (Normal) Range: 0.83-4.51 [...] 4.2-5.4 WBC 4.3 K/mm3 (Abnormal) Range: 4.4-11.0 83-Vkr-016255:03 Comprehensive Metabolic Profil Comments: [facility] [address] [place], [address] GAP 7 (Normal) Range: 5-15 [...] 7-18 GLU 94 mg/dL (Normal) Range: 70-110 16-Zza-947888:50 CBC W/Diff, Automated Comments: [facility] [address] [place], [address] Absolute Lymph 1.21 {X10_3/ul} (Normal) [...] 4.2-5.4 WBC 5.1 K/mm3 (Normal) Range: 4.4-11.0 61-Dob-083091:50 Comprehensive Metabolic Profil Comments: [facility] [address] [place], [place], [address] GAP 10 (Normal) Range: 5-15 CO2 25.0 [...] 7-18 GLU 87 mg/dL (Normal) Range: 70-110 59-Iqp-884600:14 CBC W/Diff, Automated Comments: [facility] [address] [place], [address] Absolute Lymph 1.49 {X10_3/ul} (Normal) Range: 0.83-4.51 [...] 4.2-5.4 WBC 5.8 K/mm3 (Normal) Range: 4.4-11.0 67-Pjj-089181:14 Comprehensive Metabolic Profil Comments: [facility] [address] [place], [place], [id number] GAP 6 (Normal) Range: 5-15 CO2 30.0 [...] 7-18 GLU 91 mg/dL (Normal) Range: 70-110 5-Kue-006142:25 CBC W/Diff, Automated Comments: [facility] [address] [facility], [address] Absolute Lymph 1.09 {X10_3/ul} (Normal) [...] 4.2-5.4 WBC 4.1 K/mm3 (Abnormal) Range: 4.4-11.0 7-Vyn-484218:25 Comprehensive Metabolic Profil Comments: [facility] [address] [facility] [place], [address] GAP 7 (Normal) Range: 5-15 [...] 7-18 GLU 85 mg/dL (Normal) Range: 70-110 66-Gcn-899091:10 CBC W/Diff, Automated Comments: [facility] [address] [place], [address] Absolute Lymph 1.43 {X10_3/ul} (Normal) Range: 0.83-4.51 [...] 4.2-5.4 WBC 3.8 K/mm3 (Abnormal) Range: 4.4-11.0 09-Btk-106492:10 Comprehensive Metabolic Profil Comments: [facility] [address] [place], [place], [id number] GAP 8 (Normal) Range: 5-15 CO2 27.0 [...] Range: 70-110 :50 CBC W/Diff, Automated Comments: [facility] [address] [place], [place], [address] Absolute Lymph 1.21 {X10_3/ul} (Normal) Range: 0.83-4.51 [...] Range: 4.4-11.0 :50 Comprehensive Metabolic Profil Comments: [facility] [address] [place], [address] GAP 10 (Normal) Range: 5-15 [...] 7-18 GLU 86 mg/dL (Normal) Range: 70-110 6-Nne-851495:02 CBC W/Diff, Automated Comments: Test performed at:[facility] [address] [place] [address] Absolute Lymph 1.28 {X10_3/ul} (Normal) [...] 4.2-5.4 WBC 4.5 K/mm3 (Normal) Range: 4.4-11.0 6-Zte-323546:02 Comprehensive Metabolic Profil Comments: Test performed at:[facility] [address] [place] [address] GAP 5 (Normal) Range: 5-15 CO2 27.0 [...] Comments: Please note revised CREATININE reference range odywvnqbh78/22/2015. BUN 17 mg/dL (Normal) Range: 7-18 GLU 86 mg/dL (Normal) Range: 70-110 13-Siw-882871:56 CBC W/Diff, Automated Comments: Test performed at:[facility] [address] [place] [address] Absolute Lymph 1.26 {X10_3/ul} (Normal) Range: 0.83-4.51 [...] 4.2-5.4 WBC 3.7 K/mm3 (Abnormal) Range: 4.4-11.0 51-Hzk-835796:56 Comprehensive Metabolic Profil Comments: Test performed at:[facility] [address] [facility] [address] GAP 4 (Abnormal) Range: 5-15 [...] 7-18 GLU 90 mg/dL (Normal) Range: 70-110 22-Hzx-522409:22 CBC W/Diff, Automated Comments: Test performed at:[facility] [address] [place], [place] [address] Absolute Lymph 1.06 {X10_3/ul} (Normal) Range: 0.83-4.51 [...] 4.2-5.4 WBC 3.9 K/mm3 (Abnormal) Range: 4.4-11.0 34-Llc-854392:22 Comprehensive Metabolic Profil Comments: Test performed at:[facility] [address] [place] [address] GAP 6 (Normal) Range: 5-15 CO2 29.0 [...] 7-18 GLU 98 mg/dL (Normal) Range: 70-110 79-Qyx-477676:21 CBCD ALC 1.47 {X10_3/ul} (Normal) Range: 0.83-4.51 [...] 7-18 GLU 95 mg/dL (Normal) Range: 70-110 23-Ulf-626091:21 MISC (Normal) Comments: Comments: VECTRATest(s) Ordered: LILLYRA [...] 4.2-5.4 WBC 3.7 K/mm3 (Abnormal) Range: 4.4-11.0 18-Bbu-588411:27 CMP GAP 5 (Normal) Range: 5-15 CO2 [...] 7-18 GLU 102 mg/dL (Normal) Range: 70-110 55-Dnd-926807:41 Pap IG, Ct-Ng, Comments: Source.............Cervical;EndocervicalNo. of containers..01 CYTYC Thin Prep VialPERFORMED BY: [employer] Systemston120 [facility] [id number] BY: =G [facility] Bohlvzhykr35 HPV-hr 0 [facility] [id number] Information: [id number] Gonococcus, Nuc. Acid Amp Negative (Normal) Chlamydia, [...] endocervical component is identified.V72.31 ; Routine gynecological ywjjifaxrthM10.81 ; Special screening examination, human papillomavirus [HPV]Julieth Doran Plate Roller (ASCP) 34-Iga-046952:00 BILAT SCRN DIGITAL & CAD Radiology Report See Note (Normal) Comments: MAMMOGRAPHY - BILATERAL SCREENING REASON FOR EXAM: Female, 62 years old. Routine annual screeningexamination. PERTINENT HISTORY: Non-contributory. TECHNIQUE: Digital examination. Med iolateral ob lique (MLO) andcraniocaudad (CC) views of both breasts were obtained. CAD: CAD wasperformed on this study. COMPARISON: Comparison is made with prior outside examination opgohKdvbr89, 2005. FINDINGS:Th e breast composition is composed [...] Perkins M.D.November 10, 2012 at 2:52:10 PM [id number] Signed GP/GP If you are the referring physician and would like to consult with hilda iologist who provided this interpretation, please contact Monica Bonilla at [phone]. If this radiologist is unavailable, youwill be directed to another radiologist to assist. If you are a patient with a question regarding this report, pleasecontactyour referring physician directly. Professional Interpretation Provided By: [employer], Phone , These documents contain legally protected [...] 11/11/12 032 Sign by: Juanpablo Perkins MD 59-Thl-762114:51 Hemoglobin Glyclated (HGB Comments: PATIENT NOT FASTINGPERFORMED BY: PAN [facility] Rhmxpl3346 [facility] [id number] Information: [id number] A1C) (79052) Hemoglobin A1c 5.4 % (Normal) Range: 4.8-5.6 [...] CHOL 180 mg/dL (Normal) Comments: <200 mg/dL Crobtzqfn028-901 mg/dL Borderline>240 mg/dL High Risk HDL 70 mg/dL (Normal) Comments: Reference RangeHDL <40 mg/dL Low HDL CholesterolHDL >or= 60 mg/dL High HDL Cholesterol LDL 99 mg/dL (Normal) Range: 0-130 TRIG 54 mg/dL (Normal) Comments: Serum Triglycerides Reference IntervalNormal <150 mg/dLBorderline high 150 - 199 mg/dLHigh 200 - 499 mg/ dLVery High > or = 500 mg/dL VLDL 11 mg/dL (Normal) Range: 5-40 0-Dsu-581723:05 Uric Acid Blood (17313) Comments: PATIENT NOT FASTINGPERFORMED BY: [facility] [address] [id number] Uric Acid, Serum 2.7 mg/dL (Normal) Range: 2.4-8.2 :05 YEIMI (ANTINUCLEAR ANTIBODY) Comments: PATIENT NOT FASTINGPERFORMED BY: [employer] [id number] ([address]) Antinuclear Antibodies Direct Negative (Normal) :05 C-REACTIVE PROTEIN (77399) Comments: PATIENT NOT FASTINGPERFORMED BY: [employer] [id number] C-Reactive Protein, Quant 12.9 mg/L (Abnormal) Range: 0.0-4.9 :05 CBC WITH MANUAL DIFF (76593) Comments: PATIENT NOT FASTINGClinical Information: ADD [id number], R47788 PERFORMED BY: [employer] [id number] Baso (Absolute) 0.1 {x10E3/uL} (Normal) Range: 0.0-0.2 [...] {x10E3/uL} (Normal) Range: 4.0-10.5 :05 CCP ANTIBODY (59717) Comments: PATIENT NOT FASTINGPERFORMED BY: [facility] [id number] CCP IgG Antibodies 20 U/mL (Abnormal) Range: 0-5 Comments: Negative: 0 - 5 Positive: >5 :05 METABOLIC PANEL, COMPREHENSIVE Comments: PATIENT NOT FASTINGPERFORMED BY: [facility] [id number] (80133) A/G Ratio 1.4 (Normal) Range: 1.1-2.5 Albumin, [...] Sodium, Serum 141 mmol/L (Normal) Range: 135-145 3-Tyu-356120:05 SED RATE ERYTHROCYTE (60689) Comments: PATIENT NOT FASTINGPERFORMED BY: [facility] Wudjuwlbou8179 [facility] [id number] Sedimentation Rate-Westergren 29 mm/h (Normal) Range: 0-30 7-Cho-223289:05 TSH (55897) Comments: PATIENT NOT FASTINGPERFORMED BY: [facility] Wkjtwqktwy7252 [facility] [id number] TSH 1.470 {uIU/mL} (Normal) Range: 0.450-4.500 Plan [...] in unspecified joint Planned Observations LIPID PANEL (67742)Indication: Encounter for screening for lipid disorder On: 1-Znw-465363:20 Request GLUCOSE (48603)Indication: Family history of diabetes mellitus On: 8-Avl-585822:18 Request HPV automatic (82575)Indication: Screening for HPV (human papillomavirus) On: 38-Omk-156612:39 Request Thin prep Pap (28329)Indication: Well woman exam On: 87-Mwy-522558:14 Request FECAL OCCULT HGB ASSAY- tubes sent home (06815)Indication: Well woman exam On: 10-Vuz-619010:14 Request FECAL OCCULT HGB ASSAY- tubes sent home (66500)Indication: Arthritis, rheumatic, acute or subacute On: 22-Wuc-941283:31 Request LIPID PANEL (39787)Indication: Family history of diabetes mellitus On: :28 Request Glucose, PP/2 Hour (12744)Indication: Family history of diabetes mellitus On: :28 Request Planned Procedures PNEUM VAC ADLT/IMUMNOSPR, SBC/INTRM On: 19-Aug-2018 Intent (38279)By: Hyacinth Aguilar DO Comments: 0.5 cc gicen sq lt arm lot [id number] exp 11/15/19 Hyacinth FELIX DEXA SCAN AXIAL SKELETON (81694)By: On: 19-Aug-2018 Intent Hyacinth Aguilar DO, DO, Kathleen SCREENING DIGITAL TOMOSYNTHESIS OF On: 19-Aug-2018 Intent BREAST (38685)By: Hyacinth Aguilar DO, DO, Kathleen DXA, BONE DENSITY, AXIAL SKELETON On: 05-Nov-2012 Intent (30947)By: Soheila Parikh LPN MAMMOGRAM, SCREENING, BOTH BREASTS On: 05-Nov-2012 Intent (25581)By: Soheila Parikh LPN MAMMOGRAM, SCREENING, BOTH BREASTS On: 22-Oct-2012 Intent (33046)By: Hyacinth Aguilar DO, DO, Kathleen DXA, BONE DENSITY, AXIAL SKELETON On: 22-Oct-2012 Intent (23966)By: Hyacinth Aguilar DO, DO, Kathleen Solu- Medrol Injection, 125mg On: 22-Jun-2009 Intent (J2930)By: Hyacinth Aguilar DO Comments: Given in left hipLot # [id number] 01/2012CDH Hyacinth FELIX TDAP VACCINE >7 IM (76189)By: Lesvia On: 01-Jun-2009 Intent Hyacinth FELIX DO, Kathleen Comments: Lot #[id number]-left deltoidDose0.5mlgiven by Germania Godfrey LPN Solu- Medrol Injection, 125mg On: 25-May-2009 Intent (J2930)By: Hyacinth Aguilar DO Comments: Lot #[id number]-right [id number]/2mlgiven by Hyacinth Barrera LPN, DO Instructions Name [...] The patient does have durable power of contract attorney and living will. The patient has [...] Arm Pain (729.5) [facility] Payers [place]/Medicare Adv Kimberlee Li; shelby guarantor
--- OUTSIDE RECORDS SUMMARY | 2018-11-13 14:13 | XMS RPT_ITS | Continuity of Care Document ---
:1950 Author Organization [facility] Address [address] [place] [address] Phone Care Team Providers Name Role Phone [...] with Pelvis Result: Comments: See Note; NOTES: [facility] Imaging Services [address] [place] [address] Verdana 4d Hip 2-3 Views with Pelvis MR#: [id number] Acct: [id number] Name: SULEIMAN LI Rep #: [id number] : 1950 F 66 From: Juanpablo Perkins MD PCP: Hyacinth Aguilar DO Status: REG CLI Study: Hip 2-3 Views with Pelvis Date of Exam: 03/20/17 Exam# [id number] Ordering Dr: Maria C Maurer i, MD [...] Juanpablo Perkins MD at 13:35 EDT Tel [phone], Service support , CC: Elie Aguilar DO; Maria C Juares MD Pipe Smoking Machine Offbearer: Signed 20-Mar-2017 Pelvis 1 or 2 Views Result: Comments: See Note; NOTES: [facility] Imaging Services [address] [place] [address] Verdana 4d Pelvis 1 or 2 Views MR#: [id number] Acct: [id number] Name: SULEIMAN LI Rep #: [id number] : 1950 F 66 From: Juanpablo Perkins MD PCP: Hyacinth Aguilar DO Status: REG CLI Study: Pelvis 1 or 2 Views Date of Exam: 03/20/17 Exam# [id number] Ordering Dr: Maria C Juares MD STUDY: [...] Juanpablo Perkins MD at 13:34 EDT Tel [phone], Service support , CC: Hyacinth Aguilar DO ; Maria C Juares MD Pipe Smoking Machine Offbearer: Signed Immunization Name Dates Details Tdap (7 years and up) on: 01-Jun-2009 Comments: Lot #[id number]/5/2011Site-left deltoidDose0.5mlgiven by Germania Godfrey LPN Family History [...] Active Vital Signs Date Test Result Details 5-Lhn-504511:12 Comments: Dr. Kulkarni and had a glaucoma [...] kg/m2 Body Surface Area Calculated 1.75 m2 69-Kyk-810766:06 Temperature 98.3 f Comments: Method: Oral Pulse [...] kg/m2 Body Surface Area Calculated 1.77 m2 7-Tnr-941776:24 Pulse 64 /min Comments: Pattern: Regular Respiration [...] 0.00 cm Results Date Description Value Details 84-Vzk-217963:14 Synovial Fluid RBC, WBC AND Comments: [facility] [address] [place], [place], [id number] Diff PATH COM/SYFL Reviewed (Normal) Comments: Negative [...] Viscous (Normal) SYNOVIAL SOURCE RIGHT KNEE (Normal) 05-Awk-546494:27 CBC W/Diff, Automated Comments: [facility] [address] [place], [place], [id number] Absolute Lymph 1.39 {X10_3/ul} (Normal) Range: 0.83-4.51 [...] 4.2-5.4 WBC 6.8 K/mm3 (Normal) Range: 4.4-11.0 22-Dbe-436775:27 Comprehensive Metabolic Profil Comments: [facility] [address] [place], [place], [id number] GAP 9 (Normal) Range: 5-15 CO2 28.0 [...] Comments: Please note revised GLUCOSE reference range kvnygtpct26/02/2018. 55-Oiy-432491:27 CRP Comments: [facility] [address] [place], [place], [id number] C-REACTIVE PROT 19.10 mg/L (Abnormal) Range: 0.0-3.0 Comments: C-Reactive Protein (CRP) provides useful information for thediagnosis, therapy and monitoring of inflammatory processesand associated diseases. For the evaluation of Relative Riskfor Cardiovascular Dise ase, a High Sensitivity CRP (HSCRP)should be ordered. 50-Voi-471845:27 Erythrocyte Sed Rate Comments: [facility] [address] [place], [address] SED RATE 22 mm/h (Normal) Range: 0-30 99-Nim-142469:03 CBC W/Diff, Automated Comments: [facility] [address] [place], [address] Absolute Lymph 1.70 {X10_3/ul} (Normal) Range: 0.83-4.51 [...] 4.2-5.4 WBC 4.3 K/mm3 (Abnormal) Range: 4.4-11.0 47-Nyw-503497:03 Comprehensive Metabolic Profil Comments: [facility] [address] [place], [address] GAP 7 (Normal) Range: 5-15 [...] 7-18 GLU 94 mg/dL (Normal) Range: 70-110 64-Jol-533751:50 CBC W/Diff, Automated Comments: [facility] [address] [place], [address] Absolute Lymph 1.21 {X10_3/ul} (Normal) [...] 4.2-5.4 WBC 5.1 K/mm3 (Normal) Range: 4.4-11.0 66-Pah-468022:50 Comprehensive Metabolic Profil Comments: [facility] [address] [place], [place], [address] GAP 10 (Normal) Range: 5-15 CO2 25.0 [...] 7-18 GLU 87 mg/dL (Normal) Range: 70-110 22-Goh-305305:14 CBC W/Diff, Automated Comments: [facility] [address] [place], [address] Absolute Lymph 1.49 {X10_3/ul} (Normal) Range: 0.83-4.51 [...] 4.2-5.4 WBC 5.8 K/mm3 (Normal) Range: 4.4-11.0 16-Udt-571271:14 Comprehensive Metabolic Profil Comments: [facility] [address] [place], [place], [address] GAP 6 (Normal) Range: 5-15 CO2 30.0 [...] 7-18 GLU 91 mg/dL (Normal) Range: 70-110 2-Pcb-537939:25 CBC W/Diff, Automated Comments: [facility] [address] [facility] [place], [address] Absolute Lymph 1.09 {X10_3/ul} (Normal) [...] 4.2-5.4 WBC 4.1 K/mm3 (Abnormal) Range: 4.4-11.0 4-Gzm-150201:25 Comprehensive Metabolic Profil Comments: [facility] [address] [facility] [place], [address] GAP 7 (Normal) Range: 5-15 [...] 7-18 GLU 85 mg/dL (Normal) Range: 70-110 31-Mmy-665362:10 CBC W/Diff, Automated Comments: [facility] [address] [place], [address] Absolute Lymph 1.43 {X10_3/ul} (Normal) Range: 0.83-4.51 [...] 4.2-5.4 WBC 3.8 K/mm3 (Abnormal) Range: 4.4-11.0 77-Ktn-488171:10 Comprehensive Metabolic Profil Comments: [facility] [address] [place], [place], [id number] GAP 8 (Normal) Range: 5-15 CO2 27.0 [...] :50 CBC W/Diff, Automated Comments: [facility] [address] [place], [place], [address] Absolute Lymph 1.21 {X10_3/ul} (Normal) Range: 0.83-4.51 [...] :50 Comprehensive Metabolic Profil Comments: [facility] [address] [place], [address] GAP 10 (Normal) Range: 5-15 [...] 7-18 GLU 86 mg/dL (Normal) Range: 70-110 3-Tpi-712340:02 CBC W/Diff, Automated Comments: Test performed at:[facility] [address] [place] [address] Absolute Lymph 1.28 {X10_3/ul} (Normal) [...] 4.2-5.4 WBC 4.5 K/mm3 (Normal) Range: 4.4-11.0 4-Ygi-065850:02 Comprehensive Metabolic Profil Comments: Test performed at:[facility] [address] [place] [address] GAP 5 (Normal) Range: 5-15 CO2 27.0 [...] Comments: Please note revised CREATININE reference range apztvbkkc87/22/2015. BUN 17 mg/dL (Normal) Range: 7-18 GLU 86 mg/dL (Normal) Range: 70-110 50-Dfw-442495:56 CBC W/Diff, Automated Comments: Test performed at:[facility] [address] [place] [address] Absolute Lymph 1.26 {X10_3/ul} (Normal) Range: 0.83-4.51 [...] 4.2-5.4 WBC 3.7 K/mm3 (Abnormal) Range: 4.4-11.0 38-Zwu-716914:56 Comprehensive Metabolic Profil Comments: Test performed at:[facility] [address] [facility] [place] [address] GAP 4 (Abnormal) Range: 5-15 [...] 7-18 GLU 90 mg/dL (Normal) Range: 70-110 12-Llw-800416:22 CBC W/Diff, Automated Comments: Test performed at:[facility] [address] [place], [place] [address] Absolute Lymph 1.06 {X10_3/ul} (Normal) Range: 0.83-4.51 [...] 4.2-5.4 WBC 3.9 K/mm3 (Abnormal) Range: 4.4-11.0 88-Noy-227665:22 Comprehensive Metabolic Profil Comments: Test performed at:[facility] [address] [place] [address] GAP 6 (Normal) Range: 5-15 CO2 29.0 [...] 7-18 GLU 98 mg/dL (Normal) Range: 70-110 72-Iun-628384:21 CBCD ALC 1.47 {X10_3/ul} (Normal) Range: 0.83-4.51 [...] 7-18 GLU 95 mg/dL (Normal) Range: 70-110 66-Kkf-218185:21 MISC (Normal) Comments: Comments: VECTRATest(s) Ordered: LILLYRA [...] 4.2-5.4 WBC 3.7 K/mm3 (Abnormal) Range: 4.4-11.0 78-Nsb-076173:27 CMP GAP 5 (Normal) Range: 5-15 CO2 [...] 7-18 GLU 102 mg/dL (Normal) Range: 70-110 55-Mdw-244760:41 Pap IG, Ct-Ng, Comments: Source.............Cervical;EndocervicalNo. of containers..01 CYTYC Thin Prep VialPERFORMED BY: WB enercastton120 [facility] [id number] BY: =G [facility] Spctuzfwys16 HPV-hr 0 [facility] [id number] Information: [id number] Gonococcus, Nuc. Acid Amp Negative (Normal) Chlamydia, [...] endocervical component is identified.V72.31 ; Routine gynecological bccrshlqlecB44.81 ; Special screening examination, human papillomavirus [HPV]Julieth Doran Outbound Sales Specialist (ASCP) 21-Xar-821586:00 BILAT SCRN DIGITAL & CAD Radiology Report See Note (Normal) Comments: MAMMOGRAPHY - BILATERAL SCREENING REASON FOR EXAM: Female, 62 years old. Routine annual screeningexamination. PERTINENT HISTORY: Non-contributory. TECHNIQUE: Digital examination. Med iolateral ob lique (MLO) andcraniocaudad (CC) views of both breasts were obtained. CAD: CAD wasperformed on this study. COMPARISON: Comparison is made with prior outside examination ogdvvRdmba32, 2005. FINDINGS:Th e breast composition is composed [...] Perkins M.D.November 10, 2012 at 2:52:10 PM [id number] Signed GP/GP If you are the referring physician and would like to consult with hilda iologist who provided this interpretation, please contact Monica Bonilla at [phone]. If this radiologist is unavailable, youwill be directed to another radiologist to assist. If you are a patient with a question regarding this report, pleasecontactyour referring physician directly. Professional Interpretation Provided By: [employer], Phone , These documents contain legally protected [...] 11/11/12 032 Sign by: Juanpablo Perkins MD 28-Iai-448731:51 Hemoglobin Glyclated (HGB Comments: PATIENT NOT FASTINGPERFORMED BY: PAN [facility] Pmaccf9457 [facility] [id number] Information: [id number] A1C) (02698) Hemoglobin A1c 5.4 % (Normal) Range: 4.8-5.6 [...] CHOL 180 mg/dL (Normal) Comments: <200 mg/dL Icmnjvgxv704-350 mg/dL Borderline>240 mg/dL High Risk HDL 70 mg/dL (Normal) Comments: Reference RangeHDL <40 mg/dL Low HDL CholesterolHDL >or= 60 mg/dL High HDL Cholesterol LDL 99 mg/dL (Normal) Range: 0-130 TRIG 54 mg/dL (Normal) Comments: Serum Triglycerides Reference IntervalNormal <150 mg/dLBorderline high 150 - 199 mg/dLHigh 200 - 499 mg/ dLVery High > or = 500 mg/dL VLDL 11 mg/dL (Normal) Range: 5-40 6-Zdz-633338:05 Uric Acid Blood (91488) Comments: PATIENT NOT FASTINGPERFORMED BY: [facility] [address] [id number] Uric Acid, Serum 2.7 mg/dL (Normal) Range: 2.4-8.2 :05 YEIMI (ANTINUCLEAR ANTIBODY) Comments: PATIENT NOT FASTINGPERFORMED BY: [employer] [id number] (34222) Antinuclear Antibodies Direct Negative (Normal) :05 C-REACTIVE PROTEIN (30041) Comments: PATIENT NOT FASTINGPERFORMED BY: [employer] [id number] C-Reactive Protein, Quant 12.9 mg/L (Abnormal) Range: 0.0-4.9 :05 CBC WITH MANUAL DIFF (25159) Comments: PATIENT NOT FASTINGClinical Information: ADD [id number], [id number] PERFORMED BY: [facility] [id number] Baso (Absolute) 0.1 {x10E3/uL} (Normal) Range: 0.0-0.2 [...] {x10E3/uL} (Normal) Range: 4.0-10.5 :05 CCP ANTIBODY (83920) Comments: PATIENT NOT FASTINGPERFORMED BY: [facility] [id number] CCP IgG Antibodies 20 U/mL (Abnormal) Range: 0-5 Comments: Negative: 0 - 5 Positive: >5 :05 METABOLIC PANEL, COMPREHENSIVE Comments: PATIENT NOT FASTINGPERFORMED BY: [facility] [id number] (36573) A/G Ratio 1.4 (Normal) Range: 1.1-2.5 Albumin, [...] Sodium, Serum 141 mmol/L (Normal) Range: 135-145 5-Rnf-660577:05 SED RATE ERYTHROCYTE (76928) Comments: PATIENT NOT FASTINGPERFORMED BY: [facility] Nujlqnvqzt6713 [facility] [id number] Sedimentation Rate-Westergren 29 mm/h (Normal) Range: 0-30 6-Ait-369971:05 TSH (54099) Comments: PATIENT NOT FASTINGPERFORMED BY: [facility] Yjnuqqtvuh5184 [facility] [id number] TSH 1.470 {uIU/mL} (Normal) Range: 0.450-4.500 Plan [...] in unspecified joint Planned Observations LIPID PANEL (19817)Indication: Encounter for screening for lipid disorder On: 2-Iud-689905:20 Request GLUCOSE (67908)Indication: Family history of diabetes mellitus On: 3-Vlk-919159:18 Request HPV automatic (40221)Indication: Screening for HPV (human papillomavirus) On: 67-Wwk-611760:39 Request Thin prep Pap (35518)Indication: Well woman exam On: 66-Wsv-802972:14 Request FECAL OCCULT HGB ASSAY- tubes sent home (61308)Indication: Well woman exam On: 51-Iyd-861418:14 Request FECAL OCCULT HGB ASSAY- tubes sent home (59030)Indication: Arthritis, rheumatic, acute or subacute On: 93-Gst-228329:31 Request LIPID PANEL (56371)Indication: Family history of diabetes mellitus On: :28 Request Glucose, PP/2 Hour (67046)Indication: Family history of diabetes mellitus On: :28 Request Planned Procedures PNEUM VAC ADLT/IMUMNOSPR, SBC/INTRM On: 19-Aug-2018 Intent (96948)By: Hyacinth Aguilar DO Comments: 0.5 cc gicen sq lt arm lot [id number] exp 11/15/19 Hyacinth FELIX DEXA SCAN AXIAL SKELETON (87432)By: On: 19-Aug-2018 Intent Hyacinth Aguilar DO, DO, Kathleen SCREENING DIGITAL TOMOSYNTHESIS OF On: 19-Aug-2018 Intent BREAST (90684)By: Hyacinth Aguilar DO, DO, Kathleen DXA, BONE DENSITY, AXIAL SKELETON On: 05-Nov-2012 Intent (69293)By: Soheila Parikh LPN MAMMOGRAM, SCREENING, BOTH BREASTS On: 05-Nov-2012 Intent (51922)By: Soheila Parikh LPN MAMMOGRAM, SCREENING, BOTH BREASTS On: 22-Oct-2012 Intent (41563)By: Hyacinth Aguilar DO, DO, Kathleen DXA, BONE DENSITY, AXIAL SKELETON On: 22-Oct-2012 Intent (77114)By: Hyacinth Aguilar DO, DO, Kathleen Solu- Medrol Injection, 125mg On: 22-Jun-2009 Intent (J2930)By: Hyacinth Aguilar DO Comments: Given in left hipLot # [id number] 01/2012CDH Hyacinth FELIX TDAP VACCINE >7 IM (19731)By: Lesvia On: 01-Jun-2009 Intent Hyacinth FELIX DO, Kathleen Comments: Lot #[id number]/5/2011Site-left deltoidDose0.5mlgiven by Germania Godfrey LPN Solu- Medrol Injection, 125mg On: 25-May-2009 Intent (J2930)By: Hyacinth Aguilar DO Comments: Lot #[id number]-right bilAxmt265zz/2mlgiven by Hyacinth Barrera LPN, DO Instructions Name [...] The patient does have durable power of claims attorney and living will. The patient has [...] Arm Pain (729.5) [facility] Payers [place]/Medicare Adv Kimberlee Li; shelby guarantor
--- OUTSIDE RECORDS SUMMARY | 2018-11-13 14:13 | XMS RPT_ITS ---
:1950 Author Organization OHIP Care Team Providers Name Role Phone Hyacinth Lakhani DO Attending Unavailable Lesvia DO, Hyacinth Referring Unavailable Lesvia DO, Hyacinth Consulting Unavailable Dudley Marmolejo Attending Unavailable Lesvia, Hyacinth Referring Unavailable Vellanki, Maria C Attending Unavailable Vellanki, Maria C Referring Unavailable Lesvia, Hyacinth Primary Care Unavailable Vellanki, Maria C Attending Unavailable Lesvia, Hyacinth Primary Care Unavailable Vellanki, Maria C Referring Unavailable Lesvia, Hyacinth Attending Unavailable Lesvia, Hyacinth Primary Care Unavailable Lesvia, Hyacinth Attending Unavailable Lesvia, Hyacinth Referring Unavailable Lesvia, Hyacinth Primary Care Unavailable Lesvia, Hyacinth Attending Unavailable Lesvia, Hyacinth Primary Care Unavailable Lesvia, Hyacinth Referring Unavailable Vellanki, Maria C Attending Unavailable Vellanki, Maria C Referring Unavailable Lesvia, Hyacinth Primary Care Unavailable PROBLEMS PROBLEMS DATE TYPE CONDITION / CODE ATTENDING STATUS SOURCE 2018 Unknown R92.8 - Other Dudley Marmolejo Active [facility] abnormal and Community inconclusive findings Hospital on diagnostic imaging Repository of breast / R92.8(ICD-10) 2018 Unknown R92.2 - Inconclusive Lesvia, Active [facility] mammogram / [facility] R92.2(ICD-10) Hospital Repository 09/02/2018 Unknown Z78.0 - Asymptomatic Lesvia, Active [facility] menopausal state / [facility] Z78.0(ICD-10) Hospital Repository 08/04/2018 Unknown M06.09 - Rheumatoid Maria C Juares Active [facility] arthritis without [facility] rheumatoid factor, Hospital multiple sites / Repository M06.09(ICD-10) 08/04/2018 Unknown M18.0 - Bilateral VelMaria C talley Active [facility] primary Community osteoarthritis of Hospital first carpometacarpal Repository joints / M18.0(ICD-10) 08/03/2018 Unknown Z79.899 - Other long Maria C Juares Active [facility] term (current) drug Community therapy / Hospital Z79.899(ICD-10) Repository 08/03/2018 Unknown M25.552 - Pain in Maria C Juares Active [facility] left hip / [facility] M25.552(ICD-10) Hospital Repository 08/03/2018 Unknown M47.897 - Other DwightlanMaria C alvarez Active [facility] spondylosis, [facility] lumbosacral region / Hospital M47.897(ICD-10) Repository 08/03/2018 Unknown H40.9 - Unspecified Maria C Juares Active [facility] glaucoma / Community H40.9(ICD-10) Hospital Repository PROCEDURES PROCEDURES No Procedure Records FoundRESULTS RESULTS SURGERY VISIT REPORT Observed: 09/28/2018 Status: F Source: [place] 3:42 PM [facility] REPOSITORY [facility] [address] [place] [address]. 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 Is patient in pain?: No Allergies No Known Allergies Allergy (Unverified 09/28/18 14:46) Medications cannabidiol (CBD) 100 mg/mL oral solution mg PO .prn ml 09/28/18 [History Confirmed 09/28/18] folic acid 400 mcg tablet 0.4 mg PO TID tab 09/28/18 [History Confirmed 09/28/18] hydroxychloroquine 200 mg tablet 200 mg PO BID tab 09/28/18 [History Confirmed 09/28/18] methotrexate sodium 2.5 mg tablet 15 mg PO QWEEK tab 09/28/18 [History Confirmed 09/28/18] omega-3 fatty acids 1,000 mg capsule 1,000 mg PO DAILY 09/28/18 [History Confirmed 09/28/18] prednisone 10 mg tablet 10 mg PO DAILY 09/28/18 [History Confirmed 09/28/18] PFSH Medical History Abnormal mammogram (Acute) Rheumatoid arthritis (Acute) Surgical History History of (Acute) History of left breast biopsy (Acute) history right eye surgery (Acute) Family History Sister Colon cancer Mother Kidney disease Brother Cancer skin cancer with mets Social History Smoking Status: Former smoker how long ago did patient quit smokin alcohol intake: current alcohol intake frequency: a few times a month substance use type: does not use HPI HPI HPI: SULEIMAN AGUILAR, is a 67 F who presents to the office today for surgical consultation regarding dilated retroareolar ducts of her right breast. The patient is referred by her primary care physician Dr. Hyacinth Lakhani and a written compromise surgical consult and recommendations will be returned to her. The patient recently saw her primary care physician who according to the patient she does not see on an annual basis. Part of this included her breast evaluation. 67-year-old female. . First child was born when she was 29. She does not recall onset of menarche. She did breast-feed. She has had a remote benign breast biopsy. Not on any estrogen replacement therapy. Family history is negative for breast cancer. At the [facility] on September 03, 2018 the patient had bilateral screening mammography. There were scattered areas of fibroglandular density. There was a 1.3 x 1.5 cm nodular density in the retroareolar area of the right breast. BI-RADS Category 0 ultrasound was recommended. Subsequently on September 07, 2018 the patient had right breast ultrasonography. There is evidence of dilated retroareolar ducts with no dominant solid or cystic mass. BI-RADS Category 2. I have personally reviewed the patient's mammograms and ultrasound images and concur with that impression. The patient strictly denies any breast symptoms. She denies any breast pain. She has not had any nipple discharge. She has not had any nipple bleeding. It is of note however that the patient does use CBD ROS General General: No weight change, appetite, fatigue, colon cancer, breast cancer or weakness HEENT HEENT: No difficulty swallowing, eye injury, eye surgery, swollen glands or hoarseness Endo Endocrine: No thyroid disease, diabetes mellitus, thyroid cancer, Hair loss, heat intolerance or cold intolerance Skin Skin: No rash or changing moles Breast Breast: Yes abnormal mammogram; no left breast lump, right breast lump, nipple discharge, breast pain, abnormal US or breast enlargement Musc Musculoskeletal: Yes arthritis and rheumatoid arthritis; no back problems, gout or joint pain Cardio Cardiovascular: No murmur, pacemaker, heart disease, atrial fibrillation, high blood pressure, heart attack, heart stent, palpitations, shortness of breat with exertion or chest pain Psych Psychiatric: No depression, anxiety or hearing voices Resp Respiratory: No shortness of breath, No sleep apnea, No cough, No COPD, No asthma, No emphysema, No wheezing Gastro Gastrointestinal: No abdominal pain, No nausea or vomiting, No diarrhea, No constipation, No blood in stool, No acid reflux, No hemorrhoids, No ulcers, No gallbladder problem, No black,tarry stools Sil[place]re Hematologic: No blood thinners, No blood disorders, No bleeding, No anemia, No blood clots Neuro Neurologic: No system reviewed and no additional complaints, except as docu, No as per HPI, No abnormal walking, No abnormal hearing, No abnormal movements, No abnormal speech, No behavioral changes, No burning sensations, No confusion, No seizure-like activity, No unsteadiness, No dizziness, No localized weakness, No frequent falls, No headache(s), No lack of coordination, No loss of vision, No memory loss, No numbness, No other visual disturbances, No radiating pain, No restless legs, No sensory deficit, No fainting, No tingling, No tremor(s), No weakness, No other Exam Chest Breast Palpation: No nipple discharge Other: Bilateral breasts appear to be symmetric. There are no focal masses. Particularly on the right there is no tenderness no mass no nipple discharge no bleeding no axillary or clavicular adenopathy. This is similar on the left as well. Cardio Heart Sounds: no murmurs Assessment AND Plan Problems 1. Abnormal mammogram of right breast R92.8 Plan I have personally reviewed the patient's mammogram and ultrasound. I am not finding any clinical evidence that would suggest malignancy. I question whether the dilated ducts seen on imaging ultrasound right breast possibly related to the patient's CBD usage. There are no focal areas that are imageable for biopsy. The patient has had an opportunity to ask and have questions answered. She is to notify me if she develops right breast symptoms or nipple discharge or bleeding. I have encouraged her to follow through with annual imaging. I would concur with the radiology interpretation of benign findings. I very much appreciate the kind opportunity of assisting with her surgical care CC: Dr. Hyacinth Marmolejo M.D., F.A.C.S. Coding Level of Care Code Exp prob focused,strt fwd Diagnoses Abnormal mammogram of right breast R92.8 09/28/18 1542 <Electronically signed by Dudley Marmolejo MD> Date Dudley Marmolejo MD Cosigner Signature: Date (if applicable) CC: Hyacinth Lakhani DO CBC W/DIFF, AUTOMATED Collected: 09/20/2018 Status: F Source: [place] 9:45 AM [facility] REPOSITORY TYPE CODE TESTS RESULT OUT OF RANGE REFERENCE UNITS LAB L100.1000 4.4-11.0 K/mm3 Normal WBC 8.1 LAB L100.1200 4.2-5.4 M/mm3 Normal RBC 4.27 LAB L100.1300 12.0-15.0 g/dl Normal HGB 13.3 LAB L100.1400 37-47 % Normal HCT 41.1 LAB L100.1500 81-99 fL Normal MCV 96.3 LAB L100.1600 27.0-32.0 pg Normal MCH 31.1 LAB L100.1700 32-36 g/gl Normal MCHC 32.4 LAB L100.1810 11.6-14.6 % Normal RDW CV 14.1 LAB L100.1820 35.1-43.9 fl High RDW SD 47.2 LAB L100.1900 150-450 K/mm3 Normal PLT 289 LAB L100.2000 6.2-12.0 fl Normal MPV 11.4 LAB L100.2100 47-70 % High NEUT% 71.5 LAB L100.2200 19-41 % Low LY% 15.0 LAB L100.2300 0-10 % Normal MONO% 9.1 LAB L100.2400 0-5 % Normal EO% 3.6 LAB L100.2500 0-1 % Normal BASO% 0.2 LAB L100.2550 0.0-0.9 % Normal IM GRAN % 0.600 Result Comment: IG% - Immature Granulocytes (promyelocytes, myelocytes and metamyelocytes) > 1% indicates that a LEFT SHIFT is Present. LAB L100.2620 2.0-7.7 X10 3/uL Normal Absolute Neut 5.8 LAB L100.2720 0.83-4.51 X10 3/ul Normal Absolute Lymph 1.21 Performed By: #### L100.0100 #### [facility] [address] [place], [address] COMPREHENSIVE METABOLIC Collected: 09/20/2018 Status: F Source: [facility] 9:45 AM [facility] REPOSITORY TYPE CODE TESTS RESULT OUT OF RANGE REFERENCE UNITS LAB L501.0100 74-106 mg/dL Normal GLU 83 Result Comment: Please note revised GLUCOSE reference range effective 2017. LAB L501.1000 7-18 mg/dL Normal BUN 13 LAB L501.1100 0.55-1.02 mg/dL Normal CREAT,SERUM 0.92 Result Comment: The validity of the calculated GFR AND GFRAA in patients over 70 years has not been determined. Clinical correlation is essential. LAB L501.1110 >60 mL/min Normal EST GFR 65 Result Comment: Non- GFR Calc LAB L501.1115 >60 mL/min Normal EST GFR - AA 78 Result Comment: GFR Calc LAB L501.1300 10-20 RATIO Normal BUN/CRE 14.2 LAB L501.1500 6.4-8.2 g/dL T Normal PROT 7.5 LAB L501.1800 3.2-5.0 g/dL Normal ALB 3.3 LAB L501.1950 2.2-4.2 g/dL Normal GLOB 4.2 LAB L501.2000 0.9-2.4 RATIO Low A/G 0.8 LAB L501.2200 8.5-10.1 mg/dL CA Normal 9.0 LAB L501.4100 15-37 U/L Normal AST 16 LAB L501.4305 45-117 U/L Normal ALK P 92 LAB L501.4405 13-56 U/L Normal ALT 19 LAB L501.4600 0.20-1.00 mg/dL T Normal BILI 0.40 LAB L501.5300 136-145 mmol/L NA Normal 142 LAB L501.5600 3.5-5.1 mmol/L K Normal 3.9 LAB L501.5900 98-107 mmol/L CL Normal 104 LAB L501.6100 21.0-32.0 mmol/L Normal CO2 29.0 LAB L501.6200 5-15 Normal GAP 9 Performed By: #### L500.4050, L501.6710 #### [facility] [address] [place], [address] CRP Collected: 09/20/2018 Status: F Source: [place] 9:45 AM [facility] REPOSITORY TYPE CODE TESTS RESULT OUT OF RANGE REFERENCE UNITS LAB L501.6710 0.0-3.0 mg/L High 11.70 C-REACTIVE PROT Result Comment: C-Reactive Protein (CRP) provides useful information for the diagnosis, therapy and monitoring of inflammatory processes and associated diseases. For the evaluation of Relative Risk for Cardiovascular Disease, a High Sensitivity CRP (HSCRP) should be ordered. Performed By: #### L500.4050, L501.6710 #### [facility] [address] [place], [address] LIPID PROFILE Collected: 09/07/2018 Status: F Source: [place] 9:04 AM [facility] REPOSITORY TYPE CODE TESTS RESULT OUT OF RANGE REFERENCE UNITS LAB L501.4900 200 mg/dL High CHOL 204 Result Comment: <200 mg/dL Desirable 200-240 mg/dL Borderline >240 mg/dL High Risk LAB L501.5000 mg/dL Normal TRIG 59 Result Comment: The drugs N-Acetylcysteine and Metamizole may falsely depress this assay. Serum Triglycerides Reference Interval Normal <150 mg/dL Borderline high 150 - 199 mg/dL High 200 - 499 mg/dL Very High > or = 500 mg/dL LAB L501.6400 mg/dL Normal HDL 80 Result Comment: The drugs N-Acetylcysteine and Metamizole may falsely depress this assay. Reference Range HDL <40 mg/dL Low HDL Cholesterol HDL >or= 60 mg/dL High HDL Cholesterol LAB L501.6500 0-130 mg/dL Normal LDL 112 LAB L501.6600 5-40 mg/dL Normal VLDL 12 Performed By: #### L500.4100, L501.0100 #### [facility] [address] [place], [address] GLUCOSE Collected: 09/07/2018 Status: F Source: [place] 9:04 AM [facility] REPOSITORY TYPE CODE TESTS RESULT OUT OF RANGE REFERENCE UNITS LAB L501.0100 74-106 mg/dL Normal GLU 86 Result Comment: Please note revised GLUCOSE reference range effective 2017. Performed By: #### L500.4100, L501.0100 #### [facility] [address] [place], [address] BREAST LIMITED Observed: 09/07/2018 Status: F Source: [place] UNIL[place]AL 7:46 AM [facility] REPOSITORY [facility] [address] [place] [address] Breast Limited Unilateral MR#: [id number] Acct: [id number] Name: SULEIMAN GAUILAR Rep #: [id number] : 1950 F 67 From: Juanpablo Perkins MD PCP: Hyacinth Lakhani DO Status: REG CLI Study: Breast Limited Unilateral Date of Exam: 09/07/18 Exam# [id number] Ordering Dr: Hyacinth Lakhani DO STUDY: ULTRASOUND BREAST - RIGHT REASON FOR EXAM: Female, 67 years old. Abnormal screening mammogram. TECHNIQUE: Axial and longitudinal images of the RIGHT breast were performed with a high resolution ultrasound transducer. COMPARISON: Comparison is made with prior mammogram dated September 03, 2018. FINDINGS: RIGHT Breast: This evidence of a dilated retroareolar ducts. No solid or cystic mass lesion is seen. US/Breast Limited Unilateral IMPRESSION: The mammographic abnormality corresponds to dilated retroareolar ducts. Routine mammographic follow-up is recommended. ASSESSMENT CATEGORY: BIRADS Category 2: Benign. A letter regarding these results will be sent to the patient by the facility within 30 days. Electronically Signed: Juanpablo Perkins MD at 8:06 EST Tel [phone], Service support , CC: Hyacinth Lakhani DO Foreign Exchange Clerk: Signed SCREENING MAMM (CAD), Observed: 09/03/2018 Status: F Source: [place] 10:10 AM [facility] REPOSITORY [facility] Imaging Services [address] [place] [id number] SCREENING MAMM (CAD), BILAT MR#: [id number] Acct: [id number] Name: SULEIMAN AGUILAR Rep #: [id number] : 1950 F 67 From: Juanpablo Perkins MD PCP: Hyacinth Lakhani DO Status: REG CLI Study: SCREENING MAMM (CAD), BILAT Date of Exam: 09/03/18 Exam# [id number] Ordering Dr: Hyacinth Lakhani DO MAMMOGRAPHY - BILATERAL SCREENING REASON FOR EXAM: Female, 67 years old. Routine annual screening examination. PERTINENT HISTORY: Non-contributory. Remote left stereotactic breast biopsy. TECHNIQUE: Digital bilateral breast radu (3D mammographic acquisition) in the CC and MLO projections. 2-D mediolateral oblique (MLO) and craniocaudad (CC) views of both breasts were obtained. CAD: Full Field Digital Mammography with Computer Added Detection was performed. COMPARISON: Comparison is made with prior study dated November 05, 2012 and December 26, 2004. FINDINGS: Breast Composition: There are scattered areas of fibroglandular density. There are no dominant masses or suspicious calcifications. There is a 1.3 cm x 1.5 cm nodular density in the retroareolar region of the right breast. Correlation with ultrasound is recommended. No other significant abnormalities are identified. BI/SCREENING MAMM (CAD), BILAT IMPRESSION: Questionable 1.3 cm x 1.5 cm nodular density in the retroareolar region of the right breast as described. Correlation with ultrasound is recommended. ASSESSMENT CATEGORY: BIRADS Category 0: Incomplete. Need additional imaging evaluation. A letter regarding these results will be sent to the patient by the facility within 30 days. Approximately 10% of breast cancers are not detected by mammography. A normal mammogram should not delay biopsy of a clinically suspicious abnormality. [id number] Electronically Signed: Juanpablo Perkins MD at 11:35 EST Tel [phone], Service support , CC: Hyacinth Lakhani DO Foreign Exchange Clerk: Signed DEXA BONE DENSITY Observed: 08/26/2018 Status: F Source: [place] STUD[place] 10:03 AM [facility] REPOSITORY [facility] Services [address] [place] [address] Dexa Bone Density Study MR#: [id number] Acct: [id number] Name: SULEIMAN AGUILAR Rep #: [id number] : 1950 F 67 From: Juanpablo Perkins MD PCP: Hyacinth Lakhani DO Status: REG CLI Study: Dexa Bone Density Study Date of Exam: 08/26/18 Exam# [id number] Ordering Dr: Hyacinth Lakhani DO STUDY: DUAL ENERGY X-RAY ABSORPTIOMETRY / DXA REASON FOR EXAM: Female, 67 years old. The patient is postmenopausal. Loss of height. TECHNIQUE: Bone Mineral Density (BMD) measurements of lumbar spine and bilateral hips were obtained. COMPARISON: None. FINDINGS: Lumbar Spine (L1-L4): g/cm2 (1.214) / T-score (0.4) / Z-score (2.1) Findings are suggestive of normal bone density with a low fracture risk. Increased thoracic kyphosis. Left Femur Total: g/cm2 (0.917) / T-score (-0.7) / Z- score (0.7) Left Femoral Neck: g/cm2 (0.851) / T-score (-1.3) / Z- score (0.3) Right Femur Total: g/cm2 (0.869) / T-score (-1.1) / Z- score (0.3) Right Femoral Neck: g/cm2 (0.785) / [...] bone mineral density. The World Health Organization (WHO) interprets the T-scores as follows: Above -1 Normal bone density Between -1 and -2.5 Osteopenia Equal to / or below -2.5 Osteoporosis As a practical clinical guideline, osteopenia may be graded as follows: Mild -1 through -1.5 Moderate -1.6 through -2.0 Severe -2.1 through -2.4 The Z-score is the number of standard deviations above or below age-matched controls. A Z-score of less than -1.5 would be considered abnormal. References: 1. NIH Osteoporosis and Related Bone Diseases http://www.osteo.org 2. International Society for Clinical Densitometry http://www.iscd.org 3. National Osteoporosis Foundation http://www.nof.org Electronically Signed: Juanpablo Perkins MD at 8:25 EST Tel [phone], Service support , CC: Hyacinth Lakhani DO Foreign Exchange Clerk: Signed SYNOVIAL FLUID RBC, Collected: 08/03/2018 Status: C Source: [place] WBC AND DIFF 6:14 PM [facility] REPOSITORY Order Comment: ONLY A PURPLE TUBE WAS SENT TYPE CODE TESTS RESULT OUT OF RANGE REFERENCE UNITS LAB L200.5050 0.000-0.000 10 3 uL High SYN Tot 15.[address] Result Comment: This is the Total Number of Nucleated Cell Types in the Body Fluid. LAB L200.5100 0 10 6/uL High 0.079 SYNOVIAL RBC LAB L200.5200 0.000-0 10 3uL High .002 SYNOVIAL WBC 15.2140 LAB L200.5260 % SYBF 92.2 Normal PMN WBC% LAB L200.5270 10 3/ul SYBF Normal PMN WBC# 14.629 LAB L200.5280 % SYBF 7.8 Normal MN WBC% LAB L200.5800 PATH Normal COM/SYFL Reviewed Result Comment: Negative for malignant cells. Acute inflammation. Nicolas Quinn M.D. 08/04/18 AMENDED REPORT 08/04/18 1235 PATH COM/SYFL previously reported as: May follow LAB L200.5300 0-25 % High NEUTROPHIL 93 LAB L200.5400 % LYMPH Normal 7 LAB L200.4600 SYNOVIAL Normal SOURCE RIGHT KNEE LAB L200.4800 HIGH Normal VISCOSITY/SYFL Sl. Viscous LAB L200.4900 Pale Yellow SYNOVIAL Normal COLOR Red LAB L200.5000 CLEAR SYNOVIAL Normal GILDA. Cloudy Performed By: #### L200.0400 #### [facility] [address] [place], [address] CBC W/DIFF, AUTOMATED Collected: 08/03/2018 Status: F Source: [place] 2:27 PM [facility] REPOSITORY TYPE CODE TESTS RESULT OUT OF RANGE REFERENCE UNITS LAB L100.1000 4.4-11.0 K/mm3 Normal WBC 6.8 LAB L100.1200 4.2-5.4 M/mm3 Normal RBC 4.72 LAB L100.1300 12.0-15.0 g/dl Normal HGB 14.4 LAB L100.1400 37-47 % Normal HCT 43.7 LAB L100.1500 81-99 fL Normal MCV 92.6 LAB L100.1600 27.0-32.0 pg Normal MCH 30.5 LAB L100.1700 32-36 g/gl Normal MCHC 33.0 LAB L100.1810 11.6-14.6 % Normal RDW CV 12.4 LAB L100.1820 35.1-43.9 fl Normal RDW SD 41.2 LAB L100.1900 150-450 K/mm3 Normal PLT 264 LAB L100.2000 6.2-12.0 fl Normal MPV 10.8 LAB L100.2100 47-70 % Normal NEUT% 66.0 LAB L100.2200 19-41 % Normal LY% 20.4 LAB L100.2300 0-10 % Normal MONO% 10.0 LAB L100.2400 0-5 % Normal EO% 2.9 LAB L100.2500 0-1 % Normal BASO% 0.3 LAB L100.2550 0.0-0.9 % Normal IM GRAN % 0.400 Result Comment: IG% - Immature Granulocytes (promyelocytes, myelocytes and metamyelocytes) > 1% indicates that a LEFT SHIFT is Present. LAB L100.2620 2.0-7.7 X10 3/uL Normal Absolute Neut 4.5 LAB L100.2720 0.83-4.51 X10 3/ul Normal Absolute Lymph 1.39 Performed By: #### L100.0100, L101.9900 #### [facility] [address] [place], [address] ERYTHROCYTE SED RATE Collected: 08/03/2018 Status: F Source: [place] 2:27 PM [facility] REPOSITORY TYPE CODE TESTS RESULT OUT OF RANGE REFERENCE UNITS LAB L102.0000 0-30 mm/hr Normal SED RATE 22 Performed By: #### L100.0100, L101.9900 #### [facility] [address] [place], [place], [address] COMPREHENSIVE METABOLIC Collected: 08/03/2018 Status: F Source: [facility] 2:27 PM [facility] REPOSITORY TYPE CODE TESTS RESULT OUT OF RANGE REFERENCE UNITS LAB L501.0100 74-106 mg/dL Normal GLU 99 Result Comment: Please note revised GLUCOSE reference range effective 2017. LAB L501.1000 7-18 mg/dL High BUN 29 LAB L501.1100 0.55-1.02 mg/dL Normal CREAT,SERUM 0.94 Result Comment: The validity of the calculated GFR AND GFRAA in patients over 70 years has not been determined. Clinical correlation is essential. LAB L501.1110 >60 mL/min Normal EST GFR 63 Result Comment: Non- GFR Calc LAB L501.1115 >60 mL/min Normal EST GFR - AA 76 Result Comment: GFR Calc LAB L501.1300 10-20 RATIO High BUN/CRE 30.8 LAB L501.1500 6.4-8.2 g/dL T Normal PROT 7.9 LAB L501.1800 3.2-5.0 g/dL Normal ALB 3.4 LAB L501.1950 2.2-4.2 g/dL High GLOB 4.5 LAB L501.2000 0.9-2.4 RATIO Low A/G 0.8 LAB L501.2200 8.5-10.1 mg/dL CA Normal 9.3 LAB L501.4100 15-37 U/L Normal AST 15 LAB L501.4305 45-117 U/L Normal ALK P 101 LAB L501.4405 13-56 U/L Normal ALT 18 LAB L501.4600 0.20-1.00 mg/dL T Normal BILI 0.30 LAB L501.5300 136-145 mmol/L NA Normal 139 LAB L501.5600 3.5-5.1 mmol/L K Normal 4.0 LAB L501.5900 98-107 mmol/L CL Normal 102 LAB L501.6100 21.0-32.0 mmol/L Normal CO2 28.0 LAB L501.6200 5-15 Normal GAP 9 Performed By: #### L500.4050, L501.6710 #### [facility] [address] [facility] [place], [address] CRP Collected: 08/03/2018 Status: F Source: [place] 2:27 PM [facility] REPOSITORY TYPE CODE TESTS RESULT OUT OF RANGE REFERENCE UNITS LAB L501.6710 0.0-3.0 mg/L High 19.10 C-REACTIVE PROT Result Comment: C-Reactive Protein (CRP) provides useful information for the diagnosis, therapy and monitoring of inflammatory processes and associated diseases. For the evaluation of Relative Risk for Cardiovascular Disease, a High Sensitivity CRP (HSCRP) should be ordered. Performed By: #### L500.4050, L501.6710 #### [facility] [address] [place], [address] ALLERGIES ALLERGIES DATE TYPE / CODE NAME / CODE REACTION SEVERITY SOURCE 09/28/2018 Drug No Known Unknown [facility] Allergy/4160 Allergies/F00 [facility] [id number](SNOMED [id number](RXNOR Repository CT) M) ENCOUNTERS ENCOUNTERS ADMIT/DISCHARGE ACCOUNT ADMITTING ENCOUNTER LOCATION SOURCE NUMBER CLASS 09/28/2018/ [id number] Ambulatory BMSBuilding:B Ac 8 5 MS.[facility]ly [facility] Repository 09/20/[id number] [facility] 6 [facility] ing:MTLAB Repository 09/08/2018 [id number] Ambulatory Building:[facility] Practices Repository 09/07/2018 [id number] Ambulatory Ac [place] 5 [facility] ing:OPUS Repository 09/03/2018 [id number] Ambulatory Ac [place] 6 [facility] ing:OPBI Repository 08/26/2018 [id number] Ambulatory [place] 2 [facility] ing:OPBD Repository 08/03/2018 [id number] Ambulatory [place] 3 [facility] ing:LABSPEC Repository 08/03/2018 [id number] Ambulatory [place] 6 [facility] ing:MTLAB Repository PAYERS PAYERS ENCOUNTER GUARANTOR PAYER SUBSCRIBER SOURCE 09/28/2018 SULEIMAN S Primary SULEIMAN S [place] [id number] Insurance:ANTHEM DELORGEDOB: Community [place] [employer] [id number] Number: Repository [id number]: 330 [id number] [phone] () Date:[id number] [address]PR: 09/28/2018 Secondary NOT GIVENUNK [place] Insurance:SELF PAY [facility] Number: Effective Repository Date:2018-09-28 09/20/2018 SULEIMAN S Primary SULEIMAN S Ac [id number] Insurance:ANTHEM DELORGEDOB: Community [employer] S[employer]IOR [id number] Number: Repository [id number]: 330 [id number] [phone] () Date:[id number] [address]UF: 09/20/2018 Secondary NOT GIVENUNK [place] Insurance:SELF PAY [facility] Number: Effective Repository Date:2018-09-20 09/08/2018 Suleiman S Primary Suleiman S OHIP Practices DeLorgeDOB: Insurance:[place]/Medi DeLorgeDOB: Repository [id number] care Adv planPolicy [id number] [facility] Number: [address] [place], [place] [id number] [place], [place] [address]Pwn: [phone]) Date:[id number] 678[address]Qkh: Name:[facility] [phone] () (HP)Tel: [address] [place] [address] [phone]: [phone] 09/08/2018 Secondary Suleiman S OHIP Practices Insurance:[place] DeLorgeDOB: Repository [facility] Number: [id number] 9 [place] Date:2017-10-19 - [place], [place] [id number]: ([phone]) Name:[facility] [phone] () [address] [place] [address] [id number]: 09/07/2018 SULEIMAN S Primary SULEIMAN S [place] [id number] Insurance:ANTHEM DELORGEDOB: Community [employer] S[employer]IOR [id number]: Repository [id number]: [phone]) [id number] [phone] () Date:1848-15-51LJ [address] [place] [address]7867FM: 09/07/2018 Secondary NOT GIVENUNK [place] Insurance:SELF PAY [facility] Number: Effective Repository Date:2018-09-06 09/03/2018 SULEIMAN S Primary SULEIMAN S [place] [id number] Insurance:ANTHEM DELORGEDOB: Community [employer] S[employer] [id number] Number: Repository [id number]: [phone] [id number] [phone] (HP) Date:[id number] [address] [place] [address] 12171BL: 09/03/2018 Secondary NOT GIVENUNK [place] Insurance:SELF PAY [facility] Number: Effective Repository Date:2018-08-19 08/26/2018 SULEIMAN S Primary SULEIMAN S Ac [id number] Insurance:ANTHEM DELORGEDOB: Community [employer] S[employer]IOR [id number] Number: Repository [id number]: [phone] [id number] [phone] (HP) Date:1881-36-65ZH [address] [place] [address] 99123GX: 08/26/2018 Secondary NOT GIVENUNK [place] Insurance:SELF PAY [facility]: Effective Repository Date:2018-08-24 08/03/2018 SULEIMAN S Primary SULEIMAN S [place] [id number] Insurance:ANTHEM DELORGEDOB: Community [employer] [employer] [place] ADVANTAPolicy Number: Repository [id number]: ([phone] [id number] [phone] (HP) Date:1501-69-14EZ [address] [place] [address] 39342HS: 08/03/2018 Secondary NOT GIVENUNK [place] Insurance:SELF PAY [facility]: Effective Repository Date:2018-08-03 08/03/2018 Suleiman S Primary SULEIMAN S [place] [id number] Insurance:ANTHEM DELORGEDOB: Community [place] [employer] [place] ADVANTAPolicy Number: Repository [id number]: (330 [id number] [phone] (HP) Date:9297-99-36WH [address] [place] [address] 31477KJ: 08/03/2018 Secondary NOT GIVENUNK Ac Insurance:SELF PAY [facility]: Effective Repository Date:2018-08-03
== END ==
PROVIDERS: Family Provider Internal Medicine; PCP Internal Medicine; Referring Provider Internal Medicine Rheumatology; Visit Provider Internal Medicine Rheumatology
DX: M06.09 Rheumatoid arthritis without rheumatoid factor, multiple sites (principal); M18.0 Bilateral primary osteoarthritis of first carpometacarpal joints; M25.561 Pain in right knee; M47.897 Other spondylosis, lumbosacral region; H40.9 Unspecified glaucoma; Z79.899 Other long term (current) drug therapy
CPT/HCPCS: 36415; 80053; 85025; 86140

== ENCOUNTER → 2018-12-16 15:27 | Outpatient (CLI) | payer MEDICARE, SELFPAY ==
[2018-09-28 14:45] VITALS: BMI 31.7
[2018-12-16 17:52] LABS: Absolute Lymphocyte Count 1.94 X10^3/ul (0.83-4.51); Basophil# 0.02 X10^3/uL; Basophil% 0.4 % (0-1); Eosinophil# 0.13 X10^3/uL; Eosinophils% 2.3 % (0-5); Hematocrit 42.6 % (37-47); Hemoglobin 13.6 g/dl (12.0-15.0); Lymphocyte # 1.94 X10^3/ul (4.0); Lymphocyte % 34.2 % (19-41); Mean Corp Hgb Conc 31.9 g/gl (32-36); Mean Corpuscular Hgb 30.2 pg (27.0-32.0); Mean Corpuscular Volume 94.5 fL (81-99); Monocyte% 10.6 % (0-10); Neutrophil # 2.99 X10^3/uL (2.7-7.7); Neutrophil % 52.5 % (47-70); Platelet Count 218 K/mm3 (150-450); RBC Distribution Width CV 13.8 % (11.6-14.6); Red Blood Count 4.51 M/mm3 (4.2-5.4); White Blood Count 5.7 K/mm3 (4.4-11.0)
[2018-12-16 17:55] LABS: POSITIVE COUNT NO; POSITIVE DIFFERENTIAL NO; POSITIVE MORPHOLOGY NO
[2018-12-16 18:01] LABS: ALB/GLOB Ratio 0.9 RATIO (0.9-2.4); AST(SGOT) 16 U/L (15-37); Alanine Aminotransfer ALT/SGPT 20 U/L (13-56); Albumin, Serum 3.5 g/dL (3.2-5.0); Alkaline Phosphatase 82 U/L (45-117); Anion Gap 9 (5-15); BUN 15 mg/dL (7-18); BUN/Creat Ratio 18.8 RATIO (10-20); CRP 3.16 mg/L (0.0-3.0); Calcium,Total 8.9 mg/dL (8.5-10.1); Chloride 106 mmol/L (98-107); EST Glomerular Filtration Rate 76 mL/min (>60); Est Glom Filt Rate - Afr Amer 91 mL/min (>60); Globulin 3.8 g/dL (2.2-4.2); Glucose 87 mg/dL (74-106); Potassium 3.9 mmol/L (3.5-5.1); Protein, Total 7.3 g/dL (6.4-8.2); Sodium Level 141 mmol/L (136-145)
== END ==
PROVIDERS: Family Provider Internal Medicine; PCP Internal Medicine; Referring Provider Internal Medicine Rheumatology; Visit Provider Internal Medicine Rheumatology
DX: H40.9 Unspecified glaucoma (principal); M06.9 Rheumatoid arthritis, unspecified; M18.0 Bilateral primary osteoarthritis of first carpometacarpal joints; M47.897 Other spondylosis, lumbosacral region; Z79.899 Other long term (current) drug therapy
CPT/HCPCS: 36415; 80053; 85025; 86140

== ENCOUNTER → 2019-02-24 13:01 | Outpatient (CLI) | payer MEDICARE, SELFPAY ==
[2018-09-28 14:45] VITALS: BMI 31.7
[2019-02-24 14:15] LABS: Absolute Lymphocyte Count 1.21 X10^3/ul (0.83-4.51); Absolute Neutrophil Count 2.5 X10^3/uL (2.0-7.7); Basophil# 0.01 X10^3/uL; Basophil% 0.2 % (0-1); Eosinophil# 0.12 X10^3/uL; Eosinophils% 2.9 % (0-5); Hemoglobin 12.6 g/dl (12.0-15.0); Lymphocyte # 1.21 X10^3/ul (4.0); Lymphocyte % 28.9 % (19-41); Mean Corp Hgb Conc 32.3 g/gl (32-36); Mean Corpuscular Volume 92.9 fL (81-99); Mean Platelet Vol. 12.5 fl (6.2-12.0); Monocyte# 0.39 X10^3/uL; Monocyte% 9.3 % (0-10); Neutrophil # 2.45 X10^3/uL (2.7-7.7); Neutrophil % 58.5 % (47-70); Platelet Count 180 K/mm3 (150-450); RBC Distribution Width CV 14.3 % (11.6-14.6); RBC Distribution Width SD 46.9 fl (35.1-43.9); White Blood Count 4.2 K/mm3 (4.4-11.0)
[2019-02-24 14:17] LABS: POSITIVE COUNT NO; POSITIVE DIFFERENTIAL NO; POSITIVE MORPHOLOGY NO
[2019-02-24 14:18] LABS: AST(SGOT) 20 U/L (15-37); Alanine Aminotransfer ALT/SGPT 23 U/L (13-56); Albumin, Serum 3.6 g/dL (3.2-5.0); Alkaline Phosphatase 101 U/L (45-117); Anion Gap 6 (5-15); BUN 17 mg/dL (7-18); BUN/Creat Ratio 20.5 RATIO (10-20); Calcium,Total 8.6 mg/dL (8.5-10.1); Chloride 105 mmol/L (98-107); Creatinine, Serum 0.83 mg/dL (0.55-1.02); EST Glomerular Filtration Rate 72 mL/min (>60); Est Glom Filt Rate - Afr Amer 87 mL/min (>60); Globulin 3.6 g/dL (2.2-4.2); Glucose 123 mg/dL (74-106); Protein, Total 7.2 g/dL (6.4-8.2); Sodium Level 137 mmol/L (136-145)
== END ==
PROVIDERS: Family Provider Internal Medicine; PCP Internal Medicine; Referring Provider Internal Medicine Rheumatology; Visit Provider Internal Medicine Rheumatology
DX: M06.09 Rheumatoid arthritis without rheumatoid factor, multiple sites (principal); M18.0 Bilateral primary osteoarthritis of first carpometacarpal joints; M47.897 Other spondylosis, lumbosacral region; H40.9 Unspecified glaucoma; Z79.899 Other long term (current) drug therapy
CPT/HCPCS: 36415; 80053; 85025

== ENCOUNTER → 2019-05-31 07:58 | Outpatient (CLI) | payer MEDICARE, SELFPAY ==
[2018-09-28 14:45] VITALS: BMI 31.7
[2019-05-31 09:03] LABS: Absolute Lymphocyte Count 0.79 X10^3/uL (0.83-4.51); Absolute Neutrophil Count 2.3 X10^3/uL (2.0-7.7); Basophil# 0.02 X10^3/uL; Basophil% 0.5 % (0-1); Eosinophil# 0.11 X10^3/uL; Eosinophils% 2.9 % (0-5); Hematocrit 38.1 % (37-47); Hemoglobin 12.3 g/dL (12.0-15.0); Lymphocyte # 0.79 X10^3/ul (4.0); Lymphocyte % 21.1 % (19-41); Mean Corp Hgb Conc 32.3 g/dL (32-36); Mean Corpuscular Hgb 31.1 pg (27.0-32.0); Mean Corpuscular Volume 96.5 fL (81-99); Mean Platelet Vol. 11.5 fl (6.2-12.0); Monocyte# 0.49 X10^3/uL; Monocyte% 13.1 % (0-10); NRBC Flagged by Analyzer 0 % (0-5); Neutrophil # 2.32 X10^3/uL (2.7-7.7); Neutrophil % 62.1 % (47-70); Platelet Count 188 K/mm3 (150-450); RBC Distribution Width CV 15.1 % (11.6-14.6); RBC Distribution Width SD 53.4 fl (35.1-43.9); Red Blood Count 3.95 M/mm3 (4.2-5.4); White Blood Count 3.7 K/mm3 (4.4-11.0)
[2019-05-31 09:30] LABS: ALB/GLOB Ratio 1.1 RATIO (0.9-2.4); AST(SGOT) 18 U/L (15-37); Alanine Aminotransfer ALT/SGPT 17 U/L (13-56); Albumin, Serum 3.5 g/dL (3.2-5.0); Alkaline Phosphatase 96 U/L (45-117); Anion Gap 3 (5-15); BUN 15 mg/dL (7-18); BUN/Creat Ratio 18.7 RATIO (10-20); Calcium,Total 8.3 mg/dL (8.5-10.1); Chloride 107 mmol/L (98-107); EST Glomerular Filtration Rate 75 mL/min (>60); Est Glom Filt Rate - Afr Amer 91 mL/min (>60); Globulin 3.3 g/dL (2.2-4.2); Glucose 81 mg/dL (74-106); Potassium 4.1 mmol/L (3.5-5.1); Protein, Total 6.8 g/dL (6.4-8.2); Sodium Level 139 mmol/L (136-145)
== END ==
PROVIDERS: Family Provider Internal Medicine; PCP Internal Medicine; Referring Provider Internal Medicine Rheumatology; Visit Provider Internal Medicine Rheumatology
DX: M06.09 Rheumatoid arthritis without rheumatoid factor, multiple sites (principal); M18.0 Bilateral primary osteoarthritis of first carpometacarpal joints; M47.897 Other spondylosis, lumbosacral region; H40.9 Unspecified glaucoma; Z79.899 Other long term (current) drug therapy
CPT/HCPCS: 36415; 80053; 85025

== ENCOUNTER → 2019-06-02 | Outpatient (CLI) | payer MEDICARE, SELFPAY ==
[2018-09-28 14:45] VITALS: BMI 31.7
[2019-06-02 13:03] LABS: RBC /Synovial Fluid 0.014 10^6/uL (0); Synovial Fld Mononuclear WBC % 86.8 %; Synovial Fld Polynuclear WBC # 0.021 10^3/uL; Synovial Fld Polynuclear WBC % 13.2 %
[2019-06-02 13:04] LABS: AUTO B FLUID DILUENT BKGD CT WBC <0.1 RBC <0.01 (W<.1,R<.01); Appearance /Synovial Fluid Cloudy (CLEAR); Color / Synovial Fluid Red (Pale Yellow); Source- Body Fluid SYNOVIAL; Viscosity / Synovial Fluid Sl. Viscous (HIGH)
[2019-06-02 13:40] LABS: Body Fluid QC Type(s) BF3Q; Lymph 63 %; Monocyte /Synovial Fluid 15 %; Neutrophil 18 % (0-25); Other Cell /Synovial Fluid 4 %
[2019-06-02 14:40] LABS: Pathologist Comment Reviewed; Pathologist Review Reviewed
== END | disposition home or self-care (01) ==
LOC: LABSPEC 12:13
PROVIDERS: Family Provider Internal Medicine; PCP Internal Medicine; Referring Provider Internal Medicine Rheumatology; Visit Provider Internal Medicine Rheumatology
DX: M06.09 Rheumatoid arthritis without rheumatoid factor, multiple sites (principal); M25.561 Pain in right knee; M18.0 Bilateral primary osteoarthritis of first carpometacarpal joints; M17.0 Bilateral primary osteoarthritis of knee; M47.897 Other spondylosis, lumbosacral region; H40.9 Unspecified glaucoma; Z79.899 Other long term (current) drug therapy
CPT/HCPCS: 87070; 87075; 87205; 89050; 89051; 89060

== ENCOUNTER → 2019-08-29 | Outpatient (CLI) | payer MEDICARE, SELFPAY ==
[2018-09-28 14:45] VITALS: BMI 31.7
[2019-08-29 12:34] LABS: Absolute Lymphocyte Count 0.91 X10^3/uL (0.83-4.51); Absolute Neutrophil Count 2.8 X10^3/uL (2.0-7.7); Basophil# 0.03 X10^3/uL; Basophil% 0.7 % (0-1); Eosinophil# 0.12 X10^3/uL; Eosinophils% 2.8 % (0-5); Hematocrit 38.4 % (37-47); Hemoglobin 12.1 g/dL (12.0-15.0); Lymphocyte # 0.91 X10^3/ul (4.0); Lymphocyte % 21.1 % (19-41); Mean Corp Hgb Conc 31.5 g/dL (32-36); Mean Corpuscular Hgb 29.7 pg (27.0-32.0); Mean Corpuscular Volume 94.3 fL (81-99); Mean Platelet Vol. 11.7 fl (6.2-12.0); Monocyte# 0.48 X10^3/uL; Monocyte% 11.1 % (0-10); NRBC Flagged by Analyzer 0 % (0-5); Neutrophil # 2.76 X10^3/uL (2.7-7.7); Neutrophil % 64.1 % (47-70); Platelet Count 206 K/mm3 (150-450); RBC Distribution Width SD 47.9 fl (35.1-43.9); Red Blood Count 4.07 M/mm3 (4.2-5.4); White Blood Count 4.3 K/mm3 (4.4-11.0)
[2019-08-29 13:03] LABS: AST(SGOT) 21 U/L (15-37); Alanine Aminotransfer ALT/SGPT 24 U/L (13-56); Albumin, Serum 3.5 g/dL (3.2-5.0); Alkaline Phosphatase 97 U/L (45-117); Anion Gap 7 (5-15); BUN 13 mg/dL (7-18); BUN/Creat Ratio 16.2 RATIO (10-20); Calcium,Total 8.7 mg/dL (8.5-10.1); Chloride 105 mmol/L (98-107); EST Glomerular Filtration Rate 75 mL/min (>60); Est Glom Filt Rate - Afr Amer 91 mL/min (>60); Globulin 3.5 g/dL (2.2-4.2); Glucose 88 mg/dL (74-106); Sodium Level 139 mmol/L (136-145)
== END | disposition home or self-care (01) ==
LOC: MTLAB 10:32
PROVIDERS: Family Provider Internal Medicine; PCP Internal Medicine; Referring Provider Internal Medicine Rheumatology; Visit Provider Internal Medicine Rheumatology
DX: M06.09 Rheumatoid arthritis without rheumatoid factor, multiple sites (principal); M18.0 Bilateral primary osteoarthritis of first carpometacarpal joints; M47.897 Other spondylosis, lumbosacral region; H40.9 Unspecified glaucoma; Z79.899 Other long term (current) drug therapy
CPT/HCPCS: 36415; 80053; 85025

== ENCOUNTER → 2019-09-05 | Outpatient (CLI) | payer MEDICARE, SELFPAY ==
[2018-09-28 14:45] VITALS: BMI 31.7
--- NOTE | 2019-09-05 10:39 | BI_ITS ---
MAMMOGRAPHY - BILATERAL SCREENING REASON FOR EXAM: Female, 68 years old. Routine annual screening examination. PERTINENT HISTORY: Non-contributory. Remote left stereotactic breast biopsy. TECHNIQUE: Digital bilateral breast asher (3D mammographic acquisition) in the CC and MLO projections. 2-D mediolateral oblique (MLO) and craniocaudad (CC) views of both breasts were obtained. CAD: Full Field Digital Mammography with Computer Added Detection was performed. COMPARISON: Comparison is made with prior study dated September 03, 2018 and November 05, 2012. FINDINGS: Breast Composition: There are scattered areas of fibroglandular density. There are no dominant masses or suspicious calcifications. Stable well-defined 1.3 cm x 1.5 cm nodular density in the retroareolar region of the right breast. Prior sonogram demonstrated this to be dilated retroareolar ducts. No other significant abnormalities are identified. There has been no significant change since the prior study. BI/SCREEN MAMM (CAD) W/ASHER BILAT IMPRESSION: Stable bilateral screening mammogram. Yearly follow-up mammogram recommended. (A) ASSESSMENT CATEGORY: BIRADS Category 2: Benign. A letter regarding these results will be sent to the patient by the facility within 30 days. Approximately 10% of breast cancers are not detected by mammography. A normal mammogram should not delay biopsy of a clinically suspicious abnormality. [id number] Electronically Signed: Juanpablo Perkins, at 13:08 EST , Service support ,
== END | disposition home or self-care (01) ==
LOC: OPBI 10:37
PROVIDERS: Family Provider Internal Medicine; PCP Internal Medicine; Referring Provider Surgery; Visit Provider Surgery
DX: Z12.31 Encounter for screening mammogram for malignant neoplasm of breast (principal)
CPT/HCPCS: 77063; 77067

== ENCOUNTER → 2019-11-25 | Outpatient (CLI) | payer MEDICARE, SELFPAY ==
[2018-09-28 14:45] VITALS: BMI 31.7
[2019-11-25 14:24] LABS: Absolute Neutrophil Count 2.8 X10^3/uL (2.0-7.7); Basophil# 0.03 X10^3/uL; Basophil% 0.7 % (0-1); Eosinophil# 0.12 X10^3/uL; Eosinophils% 2.7 % (0-5); Hematocrit 41.4 % (37-47); Hemoglobin 12.7 g/dL (12.0-15.0); Lymphocyte % 24.7 % (19-41); Mean Corp Hgb Conc 30.7 g/dL (32-36); Mean Corpuscular Hgb 27.4 pg (27.0-32.0); Mean Corpuscular Volume 89.4 fL (81-99); Monocyte# 0.39 X10^3/uL; Monocyte% 8.7 % (0-10); NRBC Flagged by Analyzer 0 % (0-5); Neutrophil # 2.81 X10^3/uL (2.7-7.7); Platelet Count 212 K/mm3 (150-450); RBC Distribution Width CV 17.3 % (11.6-14.6); RBC Distribution Width SD 56.6 fl (35.1-43.9); Red Blood Count 4.63 M/mm3 (4.2-5.4); White Blood Count 4.5 K/mm3 (4.4-11.0)
[2019-11-25 14:40] LABS: AST(SGOT) 23 U/L (15-37); Alanine Aminotransfer ALT/SGPT 33 U/L (13-56); Albumin, Serum 3.6 g/dL (3.2-5.0); Alkaline Phosphatase 89 U/L (45-117); Anion Gap 4 (5-15); BUN 15 mg/dL (7-18); BUN/Creat Ratio 18.6 RATIO (10-20); Calcium,Total 9.1 mg/dL (8.5-10.1); Chloride 108 mmol/L (98-107); Creatinine, Serum 0.81 mg/dL (0.55-1.02); EST Glomerular Filtration Rate 75 mL/min (>60); Est Glom Filt Rate - Afr Amer 90 mL/min (>60); Globulin 3.6 g/dL (2.2-4.2); Glucose 109 mg/dL (74-106); Protein, Total 7.2 g/dL (6.4-8.2); Sodium Level 140 mmol/L (136-145)
== END | disposition home or self-care (01) ==
LOC: MTLAB 12:30
PROVIDERS: PCP Internal Medicine; Referring Provider Internal Medicine Rheumatology; Visit Provider Internal Medicine Rheumatology
DX: M06.09 Rheumatoid arthritis without rheumatoid factor, multiple sites (principal); M25.561 Pain in right knee; M18.0 Bilateral primary osteoarthritis of first carpometacarpal joints; M17.0 Bilateral primary osteoarthritis of knee; M47.897 Other spondylosis, lumbosacral region; H40.9 Unspecified glaucoma; Z79.899 Other long term (current) drug therapy
CPT/HCPCS: 36415; 80053; 85025

== ENCOUNTER → 2020-02-21 | Outpatient (CLI) | payer MEDICARE, SELFPAY ==
[2018-09-28 14:45] VITALS: BMI 31.7
[2020-02-21 14:49] LABS: Absolute Lymphocyte Count 1.04 X10^3/uL (0.83-4.51); Absolute Neutrophil Count 2.2 X10^3/uL (2.0-7.7); Basophil# 0.02 X10^3/uL; Basophil% 0.5 % (0-1); Eosinophil# 0.08 X10^3/uL; Eosinophils% 2.2 % (0-5); Hematocrit 39.3 % (37-47); Lymphocyte # 1.04 X10^3/ul (4.0); Mean Corp Hgb Conc 30.5 g/dL (32-36); Mean Corpuscular Hgb 27.3 pg (27.0-32.0); Mean Corpuscular Volume 89.5 fL (81-99); Mean Platelet Vol. 12.5 fl (6.2-12.0); Monocyte% 10.8 % (0-10); NRBC Flagged by Analyzer 0 % (0-5); Neutrophil # 2.17 X10^3/uL (2.7-7.7); Neutrophil % 58.5 % (47-70); Platelet Count 204 K/mm3 (150-450); RBC Distribution Width CV 16.9 % (11.6-14.6); RBC Distribution Width SD 55.2 fl (35.1-43.9); Red Blood Count 4.39 M/mm3 (4.2-5.4); White Blood Count 3.7 K/mm3 (4.4-11.0)
[2020-02-21 15:01] LABS: AST(SGOT) 23 U/L (15-37); Alanine Aminotransfer ALT/SGPT 25 U/L (13-56); Albumin, Serum 3.7 g/dL (3.2-5.0); Alkaline Phosphatase 98 U/L (45-117); Anion Gap 5 (5-15); BUN 14 mg/dL (7-18); BUN/Creat Ratio 17.4 RATIO (10-20); Chloride 106 mmol/L (98-107); EST Glomerular Filtration Rate 75 mL/min (>60); Est Glom Filt Rate - Afr Amer 91 mL/min (>60); Globulin 3.6 g/dL (2.2-4.2); Glucose 92 mg/dL (74-106); Potassium 4.1 mmol/L (3.5-5.1); Protein, Total 7.3 g/dL (6.4-8.2); Sodium Level 139 mmol/L (136-145)
== END | disposition home or self-care (01) ==
LOC: MTLAB 11:33
PROVIDERS: PCP Internal Medicine; Referring Provider Internal Medicine Rheumatology; Visit Provider Internal Medicine Rheumatology
DX: M06.09 Rheumatoid arthritis without rheumatoid factor, multiple sites (principal); M18.0 Bilateral primary osteoarthritis of first carpometacarpal joints; M17.0 Bilateral primary osteoarthritis of knee; M47.897 Other spondylosis, lumbosacral region; H40.9 Unspecified glaucoma; Z79.899 Other long term (current) drug therapy
CPT/HCPCS: 36415; 80053; 85025

== ENCOUNTER → 2020-06-08 | Outpatient (CLI) | payer MEDICARE, SELFPAY ==
[2018-09-28 14:45] VITALS: BMI 31.7
[2020-06-08 12:17] LABS: Absolute Neutrophil Count 2.7 X10^3/uL (2.0-7.7); Basophil# 0.02 X10^3/uL; Basophil% 0.5 % (0-1); Eosinophil# 0.08 X10^3/uL; Hematocrit 38.2 % (37-47); Hemoglobin 11.5 g/dL (12.0-15.0); Lymphocyte % 19.8 % (19-41); Mean Corp Hgb Conc 30.1 g/dL (32-36); Mean Corpuscular Hgb 28.2 pg (27.0-32.0); Mean Corpuscular Volume 93.6 fL (81-99); Mean Platelet Vol. 12.1 fl (6.2-12.0); Monocyte# 0.43 X10^3/uL; Monocyte% 10.6 % (0-10); NRBC Flagged by Analyzer 0 % (0-5); Neutrophil # 2.71 X10^3/uL (2.7-7.7); Neutrophil % 66.9 % (47-70); Platelet Count 199 K/mm3 (150-450); RBC Distribution Width CV 16.6 % (11.6-14.6); RBC Distribution Width SD 56.6 fl (35.1-43.9); Red Blood Count 4.08 M/mm3 (4.2-5.4); White Blood Count 4.1 K/mm3 (4.4-11.0)
[2020-06-08 13:14] LABS: Albumin, Serum 3.3 g/dL (3.2-5.0); BUN 12 mg/dL (7-18); BUN/Creat Ratio 14.3 RATIO (10-20); Creatinine, Serum 0.84 mg/dL (0.55-1.02); EST Glomerular Filtration Rate 71 mL/min (>60); Est Glom Filt Rate - Afr Amer 86 mL/min (>60); Globulin 3.6 g/dL (2.2-4.2); Glucose 72 mg/dL (74-106); Protein, Total 6.9 g/dL (6.4-8.2)
[2020-06-08 13:15] LABS: ALB/GLOB Ratio 0.9 RATIO (0.9-2.4); AST(SGOT) 24 U/L (15-37); Alanine Aminotransfer ALT/SGPT 35 U/L (13-56); Alkaline Phosphatase 80 U/L (45-117); Anion Gap 2 (5-15); Calcium,Total 8.4 mg/dL (8.5-10.1); Chloride 110 mmol/L (98-107); Potassium 3.4 mmol/L (3.5-5.1); Sodium Level 142 mmol/L (136-145)
== END | disposition home or self-care (01) ==
LOC: MTLAB 11:18
PROVIDERS: PCP Internal Medicine; Referring Provider Internal Medicine Rheumatology; Visit Provider Internal Medicine Rheumatology
DX: M06.09 Rheumatoid arthritis without rheumatoid factor, multiple sites (principal); M18.0 Bilateral primary osteoarthritis of first carpometacarpal joints; M17.0 Bilateral primary osteoarthritis of knee; M47.897 Other spondylosis, lumbosacral region; H40.9 Unspecified glaucoma; Z79.899 Other long term (current) drug therapy
CPT/HCPCS: 36415; 80053; 85025

== ENCOUNTER → 2020-10-10 12:24 | Outpatient (CLI) | payer MEDICARE, SELFPAY ==
[2018-09-28 14:45] VITALS: BMI 31.7
[2020-10-10 13:48] LABS: Absolute Lymphocyte Count 1.05 X10^3/uL (0.83-4.51); Absolute Neutrophil Count 2.1 X10^3/uL (2.0-7.7); Basophil# 0.03 X10^3/uL; Basophil% 0.8 % (0-1); Eosinophil# 0.13 X10^3/uL; Eosinophils% 3.5 % (0-5); Hemoglobin 12.3 g/dL (12.0-15.0); Lymphocyte # 1.05 X10^3/ul (4.0); Lymphocyte % 28.1 % (19-41); Mean Corp Hgb Conc 31.5 g/dL (32-36); Mean Corpuscular Hgb 29.4 pg (27.0-32.0); Mean Corpuscular Volume 93.3 fL (81-99); Mean Platelet Vol. 12.6 fl (6.2-12.0); Monocyte# 0.45 X10^3/uL; NRBC Flagged by Analyzer 0 % (0-5); Neutrophil # 2.08 X10^3/uL (2.7-7.7); Neutrophil % 55.6 % (47-70); Platelet Count 200 K/mm3 (150-450); RBC Distribution Width CV 15.8 % (11.6-14.6); RBC Distribution Width SD 53.1 fl (35.1-43.9); Red Blood Count 4.18 M/mm3 (4.2-5.4); White Blood Count 3.7 K/mm3 (4.4-11.0)
[2020-10-10 14:06] LABS: AST(SGOT) 23 U/L (15-37); Alanine Aminotransfer ALT/SGPT 25 U/L (13-56); Albumin, Serum 3.5 g/dL (3.2-5.0); Alkaline Phosphatase 114 U/L (45-117); Anion Gap 5 (5-15); BUN 16 mg/dL (7-18); BUN/Creat Ratio 20.3 RATIO (10-20); Calcium,Total 8.5 mg/dL (8.5-10.1); Chloride 108 mmol/L (98-107); Creatinine, Serum 0.79 mg/dL (0.55-1.02); EST Glomerular Filtration Rate 77 mL/min (>60); Est Glom Filt Rate - Afr Amer 93 mL/min (>60); Globulin 3.5 g/dL (2.2-4.2); Glucose 98 mg/dL (74-106); Potassium 3.9 mmol/L (3.5-5.1); Sodium Level 140 mmol/L (136-145)
== END ==
PROVIDERS: PCP Internal Medicine; Referring Provider Internal Medicine Rheumatology; Visit Provider Internal Medicine Rheumatology
DX: M06.09 Rheumatoid arthritis without rheumatoid factor, multiple sites (principal); M18.0 Bilateral primary osteoarthritis of first carpometacarpal joints; M17.0 Bilateral primary osteoarthritis of knee; M47.897 Other spondylosis, lumbosacral region; H40.9 Unspecified glaucoma; Z79.899 Other long term (current) drug therapy
CPT/HCPCS: 36415; 80053; 85025

== ENCOUNTER 2020-12-20 14:10 | Outpatient (RCR) | payer MEDICARE, SELFPAY ==
[2018-09-28 14:45] VITALS: BMI 31.7
[2020-12-20] MEDS: COVID-19 VACC, MRNA(PFIZER)/PF 30 MCG/0.3 ML SYRINGE IM (09:12)
[2021-01-10] MEDS: COVID-19 VACC, MRNA(PFIZER)/PF 30 MCG/0.3 ML SYRINGE IM (09:03)
== END 2020-12-20 23:59 ==
LOC: IMMUN 14:10
PROVIDERS: PCP Internal Medicine; Visit Provider Family Medicine
DX: Z23 Encounter for immunization (principal)
CPT/HCPCS: 0001A; 0002A

== ENCOUNTER → 2021-01-04 13:12 | Outpatient (CLI) | payer MEDICARE, SELFPAY ==
[2018-09-28 14:45] VITALS: BMI 31.7
[2021-01-04 15:26] LABS: Absolute Lymphocyte Count 1.01 X10^3/uL (0.83-4.51); Absolute Neutrophil Count 2.3 X10^3/uL (2.0-7.7); Basophil# 0.02 X10^3/uL; Basophil% 0.5 % (0-1); Eosinophil# 0.13 X10^3/uL; Eosinophils% 3.4 % (0-5); Hematocrit 36.3 % (37-47); Hemoglobin 11.3 g/dL (12.0-15.0); Lymphocyte # 1.01 X10^3/ul (4.0); Lymphocyte % 26.4 % (19-41); Mean Corp Hgb Conc 31.1 g/dL (32-36); Mean Corpuscular Volume 96.3 fL (81-99); Mean Platelet Vol. 12.3 fl (6.2-12.0); Monocyte# 0.35 X10^3/uL; Monocyte% 9.1 % (0-10); NRBC Flagged by Analyzer 0 % (0-5); Neutrophil # 2.31 X10^3/uL (2.7-7.7); Neutrophil % 60.3 % (47-70); Platelet Count 221 K/mm3 (150-450); RBC Distribution Width CV 15.2 % (11.6-14.6); RBC Distribution Width SD 53.4 fl (35.1-43.9); Red Blood Count 3.77 M/mm3 (4.2-5.4); White Blood Count 3.8 K/mm3 (4.4-11.0)
[2021-01-04 15:44] LABS: ALB/GLOB Ratio 1.1 RATIO (0.9-2.4); AST(SGOT) 23 U/L (15-37); Alanine Aminotransfer ALT/SGPT 27 U/L (13-56); Albumin, Serum 3.7 g/dL (3.2-5.0); Alkaline Phosphatase 98 U/L (45-117); Anion Gap 6 (5-15); BUN 15 mg/dL (7-18); BUN/Creat Ratio 14.4 RATIO (10-20); Calcium,Total 8.8 mg/dL (8.5-10.1); Chloride 104 mmol/L (98-107); Creatinine, Serum 1.04 mg/dL (0.55-1.02); EST Glomerular Filtration Rate 56 mL/min (>60); Est Glom Filt Rate - Afr Amer 67 mL/min (>60); Globulin 3.4 g/dL (2.2-4.2); Glucose 119 mg/dL (74-106); Potassium 3.9 mmol/L (3.5-5.1); Protein, Total 7.1 g/dL (6.4-8.2); Sodium Level 140 mmol/L (136-145)
== END ==
PROVIDERS: PCP Internal Medicine; Referring Provider Internal Medicine Rheumatology; Visit Provider Internal Medicine Rheumatology
DX: M06.09 Rheumatoid arthritis without rheumatoid factor, multiple sites (principal); M18.0 Bilateral primary osteoarthritis of first carpometacarpal joints; M17.0 Bilateral primary osteoarthritis of knee; M47.897 Other spondylosis, lumbosacral region; H40.9 Unspecified glaucoma; Z79.899 Other long term (current) drug therapy
CPT/HCPCS: 36415; 80053; 85025

== ENCOUNTER → 2021-04-08 09:48 | Outpatient (CLI) | payer MEDICARE, SELFPAY ==
[2018-09-28 14:45] VITALS: BMI 31.7
[2021-04-08 12:23] LABS: Absolute Lymphocyte Count 0.79 X10^3/uL (0.83-4.51); Absolute Neutrophil Count 1.8 X10^3/uL (2.0-7.7); Basophil# 0.03 X10^3/uL; Eosinophil# 0.07 X10^3/uL; Eosinophils% 2.3 % (0-5); Hematocrit 40.6 % (37-47); Hemoglobin 12.7 g/dL (12.0-15.0); Lymphocyte # 0.79 X10^3/ul (0.83-4.51); Lymphocyte % 25.6 % (19-41); Mean Corp Hgb Conc 31.3 g/dL (32-36); Mean Corpuscular Hgb 28.8 pg (27.0-32.0); Mean Corpuscular Volume 92.1 fL (81-99); Mean Platelet Vol. 12.1 fl (6.2-12.0); Monocyte# 0.41 X10^3/uL; Monocyte% 13.3 % (0-10); NRBC Flagged by Analyzer 0 % (0-5); Neutrophil # 1.78 X10^3/uL (2.7-7.7); Neutrophil % 57.8 % (47-70); Platelet Count 205 K/mm3 (150-450); RBC Distribution Width CV 16.2 % (11.6-14.6); RBC Distribution Width SD 54.4 fl (35.1-43.9); Red Blood Count 4.41 M/mm3 (4.2-5.4); White Blood Count 3.1 K/mm3 (4.4-11.0)
[2021-04-08 12:59] LABS: ALB/GLOB Ratio 1.1 RATIO (0.9-2.4); AST(SGOT) 32 U/L (15-37); Alanine Aminotransfer ALT/SGPT 29 U/L (13-56); Albumin, Serum 3.7 g/dL (3.2-5.0); Alkaline Phosphatase 101 U/L (45-117); Anion Gap 7 (5-15); BUN 15 mg/dL (7-18); BUN/Creat Ratio 16.8 RATIO (10-20); Chloride 105 mmol/L (98-107); Creatinine, Serum 0.89 mg/dL (0.55-1.02); EST Glomerular Filtration Rate 66 mL/min (>60); Est Glom Filt Rate - Afr Amer 80 mL/min (>60); Globulin 3.5 g/dL (2.2-4.2); Glucose 84 mg/dL (74-106); Potassium 4.2 mmol/L (3.5-5.1); Protein, Total 7.2 g/dL (6.4-8.2); Sodium Level 140 mmol/L (136-145)
== END ==
PROVIDERS: PCP Internal Medicine; Referring Provider Internal Medicine Rheumatology; Visit Provider Internal Medicine Rheumatology
DX: M06.09 Rheumatoid arthritis without rheumatoid factor, multiple sites (principal); Z79.899 Other long term (current) drug therapy; M18.0 Bilateral primary osteoarthritis of first carpometacarpal joints; M17.0 Bilateral primary osteoarthritis of knee; M47.897 Other spondylosis, lumbosacral region; H40.9 Unspecified glaucoma
CPT/HCPCS: 36415; 80053; 85025

== ENCOUNTER → 2021-07-19 13:58 | Outpatient (CLI) | payer MEDICARE, SELFPAY ==
[2021-07-19 15:07] LABS: Absolute Lymphocyte Count 1.11 X10^3/uL (0.83-4.51); Absolute Neutrophil Count 2.9 X10^3/uL (2.0-7.7); Basophil# 0.02 X10^3/uL; Basophil% 0.4 % (0-1); Eosinophil# 0.12 X10^3/uL; Eosinophils% 2.7 % (0-5); Hematocrit 40.9 % (37-47); Hemoglobin 13.1 g/dL (12.0-15.0); Lymphocyte # 1.11 X10^3/ul (0.83-4.51); Lymphocyte % 24.8 % (19-41); Mean Corpuscular Hgb 31.1 pg (27.0-32.0); Mean Corpuscular Volume 97.1 fL (81-99); Mean Platelet Vol. 11.4 fl (6.2-12.0); Monocyte# 0.35 X10^3/uL; Monocyte% 7.8 % (0-10); NRBC Flagged by Analyzer 0 % (0-5); Neutrophil # 2.86 X10^3/uL (2.7-7.7); Neutrophil % 64.1 % (47-70); Platelet Count 206 K/mm3 (150-450); RBC Distribution Width CV 13.9 % (11.6-14.6); RBC Distribution Width SD 49.1 fl (35.1-43.9); Red Blood Count 4.21 M/mm3 (4.2-5.4); White Blood Count 4.5 K/mm3 (4.4-11.0)
[2021-07-19 15:26] LABS: ALB/GLOB Ratio 0.9 RATIO (0.9-2.4); AST(SGOT) 26 U/L (15-37); Alanine Aminotransfer ALT/SGPT 31 U/L (13-56); Albumin, Serum 3.5 g/dL (3.2-5.0); Alkaline Phosphatase 88 U/L (45-117); Anion Gap 7 (5-15); BUN 15 mg/dL (7-18); BUN/Creat Ratio 18.4 RATIO (10-20); Chloride 106 mmol/L (98-107); Creatinine, Serum 0.81 mg/dL (0.55-1.02); EST Glomerular Filtration Rate 74 mL/min (>60); Est Glom Filt Rate - Afr Amer 89 mL/min (>60); Globulin 3.8 g/dL (2.2-4.2); Glucose 106 mg/dL (74-106); Potassium 3.4 mmol/L (3.5-5.1); Protein, Total 7.3 g/dL (6.4-8.2); Sodium Level 142 mmol/L (136-145)
== END ==
PROVIDERS: PCP Internal Medicine; Referring Provider Internal Medicine Rheumatology; Visit Provider Internal Medicine Rheumatology
DX: M06.09 Rheumatoid arthritis without rheumatoid factor, multiple sites (principal); Z79.899 Other long term (current) drug therapy; M18.0 Bilateral primary osteoarthritis of first carpometacarpal joints; M17.0 Bilateral primary osteoarthritis of knee; M47.897 Other spondylosis, lumbosacral region; H40.9 Unspecified glaucoma
CPT/HCPCS: 36415; 80053; 85025

== ENCOUNTER → 2021-10-07 10:32 | Outpatient (CLI) | payer MEDICARE, SELFPAY ==
[2021-10-07 12:20] LABS: Absolute Neutrophil Count 2.6 X10^3/uL (2.0-7.7); Basophil# 0.02 X10^3/uL; Basophil% 0.5 % (0-1); Eosinophil# 0.09 X10^3/uL; Eosinophils% 2.3 % (0-5); Hematocrit 41.3 % (37-47); Hemoglobin 13.4 g/dL (12.0-15.0); Lymphocyte % 20.4 % (19-41); Mean Corp Hgb Conc 32.4 g/dL (32-36); Mean Corpuscular Hgb 30.1 pg (27.0-32.0); Mean Corpuscular Volume 92.8 fL (81-99); Mean Platelet Vol. 12.2 fl (6.2-12.0); Monocyte# 0.39 X10^3/uL; Monocyte% 9.9 % (0-10); NRBC Flagged by Analyzer 0 % (0-5); Neutrophil # 2.62 X10^3/uL (2.7-7.7); Neutrophil % 66.6 % (47-70); Platelet Count 208 K/mm3 (150-450); RBC Distribution Width CV 15.7 % (11.6-14.6); RBC Distribution Width SD 53.1 fl (35.1-43.9); Red Blood Count 4.45 M/mm3 (4.2-5.4); White Blood Count 3.9 K/mm3 (4.4-11.0)
[2021-10-07 12:38] LABS: ALB/GLOB Ratio 0.9 RATIO (0.9-2.4); AST(SGOT) 25 U/L (15-37); Alanine Aminotransfer ALT/SGPT 31 U/L (13-56); Albumin, Serum 3.7 g/dL (3.2-5.0); Alkaline Phosphatase 93 U/L (45-117); Anion Gap 7 (5-15); BUN 15 mg/dL (7-18); BUN/Creat Ratio 16.7 RATIO (10-20); Calcium,Total 9.1 mg/dL (8.5-10.1); Chloride 104 mmol/L (98-107); EST Glomerular Filtration Rate 66 mL/min (>60); Est Glom Filt Rate - Afr Amer 79 mL/min (>60); Glucose 96 mg/dL (74-106); Potassium 3.9 mmol/L (3.5-5.1); Protein, Total 7.7 g/dL (6.4-8.2); Sodium Level 140 mmol/L (136-145)
== END ==
PROVIDERS: PCP Internal Medicine; Referring Provider Internal Medicine Rheumatology; Visit Provider Internal Medicine Rheumatology
DX: M06.09 Rheumatoid arthritis without rheumatoid factor, multiple sites (principal); M18.0 Bilateral primary osteoarthritis of first carpometacarpal joints; M17.0 Bilateral primary osteoarthritis of knee; M47.897 Other spondylosis, lumbosacral region; H40.9 Unspecified glaucoma; Z79.899 Other long term (current) drug therapy
CPT/HCPCS: 36415; 80053; 85025

== ENCOUNTER 2021-11-05 13:24 | Inpatient (IN) | payer MEDICARE, SELFPAY ==
[2021-11-05] VITALS (12 sets, daily range): BP systolic 95–143; BP diastolic 57–84; PULSE 58–85; RESP 14–22; TEMP 36.2; O2SAT 95–100; BMI 30.3
--- NOTE | 2021-11-05 14:13 | EKG12_ITS ---
Test Reason : NEURO Blood Pressure : / mmHG Vent. Rate : 055 BPM Atrial Rate : 055 BPM P-R Int : 140 ms QRS Dur : 080 ms QT Int : 426 ms P-R-T Axes : 029 023 041 degrees QTc Int : 407 ms Sinus bradycardia Nonspecific ST abnormality Abnormal ECG Confirmed by AVE HUBER, ANTHONY ([id number]), news video editor LORENA CARRANZA ([id number]) on 11/06/2021 1:29:45 PM Referred By: AYAZ Confirmed By:ANTHONY DORADO MD
--- NOTE | 2021-11-05 14:17 | NURSING ---
NO OLD EKGS
[2021-11-05 14:30] LABS: Absolute Lymphocyte Count 1.03 X10^3/uL (0.83-4.51); Absolute Neutrophil Count 4.2 X10^3/uL (2.0-7.7); Basophil# 0.02 X10^3/uL; Basophil% 0.3 % (0-1); Eosinophil# 0.12 X10^3/uL; Hematocrit 41.5 % (37-47); Hemoglobin 13.4 g/dL (12.0-15.0); Lymphocyte # 1.03 X10^3/ul (0.83-4.51); Lymphocyte % 16.8 % (19-41); Mean Corp Hgb Conc 32.3 g/dL (32-36); Mean Corpuscular Hgb 30.2 pg (27.0-32.0); Mean Corpuscular Volume 93.7 fL (81-99); Mean Platelet Vol. 12.1 fl (6.2-12.0); Monocyte# 0.74 X10^3/uL; Monocyte% 12.1 % (0-10); NRBC Flagged by Analyzer 0 % (0-5); Neutrophil % 68.6 % (47-70); Platelet Count 212 K/mm3 (150-450); RBC Distribution Width CV 16.3 % (11.6-14.6); RBC Distribution Width SD 55.7 fl (35.1-43.9); Red Blood Count 4.43 M/mm3 (4.2-5.4); White Blood Count 6.1 K/mm3 (4.4-11.0)
--- NOTE | 2021-11-05 14:32 | CT_ITS ---
STUDY: CTA HEAD AND NECK WITH CONTRAST REASON FOR EXAM: Female, 71 years old. expressive aphasia RADIATION DOSAGE (If Supplied By Facility): CTDIvol = ( 27.59 ) mGy, DLP = ( 1399.71 ) mGycm TECHNIQUE: CT angiography was performed with a multi-detector CT scanner. Data acquisition was obtained from the skull base through the vertex following intravenous administration of IV. MIP images were reconstructed from the axial data set. Post-processing of the angiographic images was performed, with multiplanar reformation and 3D reconstruction. Individualized dose optimization techniques were used for this CT. COMPARISON: No relevant priors. FINDINGS: Normal bilateral petrous carotid arteries. Normal right cavernous carotid artery with a normal supraclinoid bifurcation. Normal left cavernous carotid artery with a normal supraclinoid bifurcation. Normal right A1 segments of the anterior cerebral artery. Normal left A1 segments of the anterior cerebral artery. Normal intact anterior communicating artery (ACOM). Normal bilateral A2 segments of the anterior cerebral arteries. Normal right M1 and M2 segments of the middle cerebral arteries, with a normal M1 bifurcation. Normal left M1 and M2 segments of the middle cerebral arteries, with a normal M1 bifurcation. Superior displacement of the distal M1 and M2 segments of the left middle cerebral artery due to the enhancing mass in the left temporal lobe. There is a persistent origin of the right posterior cerebral artery with absence of the posterior communicating artery (PCOM). There is a persistent origin of the left posterior cerebral artery with absence of the posterior communicating artery (PCOM). Normal bilateral vertebral arteries. Normal basilar artery with a normal basilar bifurcation. The visualized bilateral superior cerebellar (SCA) arteries are normal. Normal bilateral P1, P2 and visualized P3 segments of the posterior cerebral arteries. There is no demonstrated aneurysm of the [place] of [place]. There is no demonstrated abnormality of the visualized brain. AORTIC ARCH: Normal visualized aortic arch. Normal origins of the brachiocephalic, left common carotid, and left subclavian arteries. RIGHT CAROTID ARTERIES: Normal right common carotid artery (CCA). Normal right common carotid bulb. Normal origin of the right internal carotid (ICA) artery without a hemodynamically significant stenosis. Normal visualized cervical portion of the right internal carotid artery. Normal origin of the right external carotid artery (ECA). LEFT CAROTID ARTERIES: Normal left common carotid artery (CCA). Normal left common carotid bulb. Normal origin of the left internal carotid (ICA) artery without a hemodynamically significant stenosis. Normal visualized cervical portion of the left internal carotid artery. Normal origin of the left external carotid artery (ECA). VERTEBRAL ARTERIES: Normal bilateral vertebral arteries. CT/CTA Head AND Neck W/ Contrast IMPRESSION: Normal CTA Head and neck with contrast. Electronically Signed: Anthony Costello MD at 15:57 EST Tel , Service support ,
[2021-11-05 14:34] LABS: Partial Thromboplast Time 25.9 Seconds (24.1-36.2); Prothrombin Time (Protime)PT. 12.1 SECONDS (11.7-14.9)
--- NOTE | 2021-11-05 14:34 | EDS_ITS ---
HPI History of Present Illness Chief Complaint: Neuro S/Sx Detail of Chief Complaint: Concern for possible stroke Informant: patient, friend and PCP Narrative Narrative: Patient presents to the emergency department with confusion and expressive aphasia since around 2020. Patient states that she is having a hard time getting words out. Patient was being seen by nurse practitioner working with Dr. Crawford today and referred to the emergency department. Patient denies any headache. She denies chest pain. She denies recent illness. Per friend patient also having a hard time following directions. Patient has history of rheumatoid arthritis. Prior similar symptoms: No PFSH PFSH Medical History (Updated 11/05/21 @ 20:[address] Morena Tijerina, DO) Abnormal mammogram Abnormal mammogram of right breast Rheumatoid arthritis Home Medications cannabidiol 100 mg/mL oral solution mg PO .prn ml 09/28/18 [History Last Taken Unknown] folic acid 400 mcg tablet 0.4 mg PO TID tab 09/28/18 [History Last Taken Unknown] hydroxychloroquine 200 mg tablet 200 mg PO BID tab 09/28/18 [History Last Taken Unknown] methotrexate sodium 2.5 mg tablet 15 mg PO QWEEK tab 09/28/18 [History Last Taken Unknown] omega-3 fatty acids 1,000 mg capsule 1,000 mg PO DAILY 09/28/18 [History Last Taken Unknown] prednisone 10 mg tablet 10 mg PO DAILY 09/28/18 [History Last Taken Unknown] Allergy/AdvReac Type Severity Reaction Status Date / Time No Known Allergies Allergy Verified 11/05/21 13:27 Family History (Updated 09/28/18 @ 14:44 by Clotilde Delgado) Sister Colon cancer Mother Kidney disease Brother Cancer skin cancer with mets Surgical History History of History of left breast biopsy history right eye surgery Social History (Updated 09/28/18 @ 15:[address] Dudley Marmolejo MD) Smoking Status: Never smoker how long ago did patient quit smokin alcohol intake: current alcohol intake frequency: a few times a month substance use type: does not use ROS ROS ED Constitutional Constitutional ED: Reports systems reviewed and no addt'l complaints, except as documented; Denies body ache(s), change in weight or chills Eyes Eyes: Denies acute decrease in peripheral vision, change in vision, double vision or loss of vision ENT ENT ED: Reports none; Denies ear pain, lip swelling, loss taste/smell, neck pain, otalgia or sore throat Cardiovascular Cardiovascular: Reports none; Denies abdominal pain, chest pain with activity, leg edema, lightheadedness, palpitations, rapid heart rate or syncope Respiratory/Chest Respiratory/Chest: Reports none; Denies change in mental status, dry cough, dyspnea, hemoptysis, shortness of breath at rest or shortness of breath with exertion Gastrointestinal Gastrointestinal: Reports none; Denies abdominal pain, change in stool character, diarrhea, hematemesis, hematochezia, melena, rectal bleeding or vomiting Genitourinary Genitourinary ED: Reports none; Denies abdominal discomfort, anuria, dysuria, genital pain or polyuria Musculoskeletal Musculoskeletal: Reports none; Denies arthralgias, back pain, difficulty walking, extremity pain, muscle weakness or myalgias Integumentary Reports none; Denies abscess or rash Neurologic Neurologic: Reports none and other Details: Expressive aphasia and difficulty following commands, confusion ; Denies abnormal gait, confusion, focal weakness, frequent falls, headache(s), loss of vision, numbness, paresthesias, radicular pain, vertigo or weakness Psychiatric Psychiatric: Reports systems reviewed and no addt'l complaints, except as documented and none; Denies behavioral changes, confusion, difficulty concentrating, hallucinations, suicidal ideation, tactile hallucinations or visual hallucinations Endocrine Endocrinology: Denies none, cold intolerance, excessive sweating, fatigue or heat intolerance Hematologic/Lymphatic Hematologic/Lymphatic: Reports none; Denies anemia, easy bleeding or easy bruising Allergic/Immunologic Allergic/Immunologic ED: Denies as per HPI, none, lip swelling, mouth swelling, throat swelling, tongue swelling or hives EXAM Physical Exam Const Vital Signs: 11/05/21 13:24 11/05/21 14:13 11/05/21 14:21 Temperature 97.1 F L Temperature Source Temporal Pulse Rate 58 L 58 L Respiratory Rate 16 22 H Blood Pressure 133/71 H 95/57 L Blood Pressure Mean 91 69 Pulse Ox 98 98 Oxygen Delivery Method Room Air Room Air Room Air 11/05/21 14:25 11/05/21 16:15 11/05/21 17:18 Temperature Temperature Source Pulse Rate 61 63 66 Respiratory Rate 16 16 20 H Blood Pressure 95/57 L 118/72 127/70 H Blood Pressure Mean 69 87 89 Pulse Ox 95 100 Oxygen Delivery Method Room Air Room Air 11/05/21 18:06 11/05/21 19:04 Temperature Temperature Source Pulse Rate 73 65 Respiratory Rate 18 20 H Blood Pressure 136/66 H 143/76 H Blood Pressure Mean 89 98 Pulse Ox 95 Oxygen Delivery Method Room Air Positive well nourished and well developed General Appearance ED: well developed and NAD HEENT Reports TM's clear and moist mucous membranes normocephalic and atraumatic; Negative for trauma or tenderness Tympanic Membrane ED: Yes TM's clear Eyes PERRL and EOMs intact bilaterally General Eye ED: Negative for pale conjunctiva or scleral icterus Neck no lymphadenopathy, supple and no JVD General: Negative for tenderness Chest Wall inspection of chest normal and palpation of chest normal Chest: Negative for tenderness Resp normal respiratory effort and clear to auscultation bilaterally Effort and Inspection: Negative for respiratory distress or pain with movement Auscultation: Negative for rhonchi, wheezes or diminished lung sounds Cardio regular rate, regular rhythm, S1 normal heart sound, S2 normal heart sound and no murmurs Peripheral Pulses: pulses 2+ throughout GI normal to inspection, nondistended, normoactive bowel sounds, soft to palpation, non-tender, non-distended and no masses Back/Spine no CVA tenderness and no thoracic nor lumbar tenderness Extremity normal to inspection General Extremety ED: Negative for edema General Extremity: Negative for edema Neuro oriented x3, CN's II-XII intact bilaterally, no sensory deficits noted and gait normal Neuro Narrative: Patient with an expressive aphasia and hard time following commands. She will follow certain commands but not others. She seems to have a little bit of a receptive component. No focal motor deficit noted. NIH Stroke scale was a 3. Sensorium / Orientation: awake, alert, oriented to person, oriented to place and oriented to time Motor Exam: strength 5/5 throughout and strength abnormal Psych mental status grossly normal Skin no rashes or lesions noted and no wounds STROKE Vital Signs/Narrative: Vital Signs Pulse Resp BP Pulse Ox 11/05/21 19:04 65 20 H 143/76 H 11/05/21 18:06 73 18 136/66 H 95 11/05/21 17:18 66 20 H 127/70 H MDM MDM MDM Narrative Medical decision making narrative: IV line established on arrival. Patient was noted to have a mass to the left hemisphere of her brain with vasogenic edema and 5 mm of midline shift. Patient was given her results and also discussed with patient's friend and patient's son. Recommended transfer for neurosurgical evaluation. They are requesting go up to [facility]. I spoke with neurosurgeon at [facility] Dr. Grewal who accepted transfer of patient. I did give patient Decadron 10 mg IV. Lab Data Attestation: I reviewed the patient's lab results. Labs: Laboratory Results - last 24 hr 11/05/21 11/05/21 11/05/21 13:39 13:39 13:39 WBC 6.1 RBC 4.43 Hgb 13.4 Hct 41.5 MCV 93.7 MCH 30.2 MCHC 32.3 RDW Std Deviation 55.7 H RDW Coeff of Julissa 16.3 H Plt Count 212 MPV 12.1 H Immature Gran % (Auto) 0.200 Neut % (Auto) 68.6 Lymph % (Auto) 16.8 L Clare % (Auto) 12.1 H Eos % (Auto) 2.0 Baso % (Auto) 0.3 Absolute Neuts (auto) 4.2 Absolute Lymphs (auto) 1.03 Nucleated RBC % 0 PT 12.1 INR 1.0 APTT 25.9 Sodium 140 Potassium 4.2 Chloride 107 Carbon Dioxide 28.0 Anion Gap 5 BUN 17 Creatinine 0.86 Estim Creat Clear Calc 46.77 Est GFR (MDRD) Af Amer 83 Est GFR (MDRD) Non-Af 69 BUN/Creatinine Ratio 19.7 Glucose 101 Calcium 9.4 Troponin I High Sens Urine Color Urine Clarity Urine pH Ur Specific [place] Urine Protein Urine Glucose (UA) Urine Ketones Urine Occult Blood Urine Nitrite Urine Bilirubin Urine Urobilinogen Ur Leukocyte Esterase Urine RBC Urine WBC Ur Squamous Epith Cells Urine Bacteria Urine Mucus Ethyl Alcohol 11/05/21 11/05/21 11/05/21 13:39 13:39 15:31 WBC RBC Hgb Hct MCV MCH MCHC RDW Std Deviation RDW Coeff of Julissa Plt Count MPV Immature Gran % (Auto) Neut % (Auto) Lymph % (Auto) Clare % (Auto) Eos % (Auto) Baso % (Auto) Absolute Neuts (auto) Absolute Lymphs (auto) Nucleated RBC % PT INR APTT Sodium Potassium Chloride Carbon Dioxide Anion Gap BUN Creatinine Estim Creat Clear Calc Est GFR (MDRD) Af Amer Est GFR (MDRD) Non-Af BUN/Creatinine Ratio Glucose Calcium Troponin I High Sens 4 Urine Color Yellow Urine Clarity Clear Urine pH 5.0 Ur Specific [place] 1.015 Urine Protein Negative Urine Glucose (UA) Normal Urine Ketones Negative Urine Occult Blood Negative Urine Nitrite Negative Urine Bilirubin Negative Urine Urobilinogen Normal Ur Leukocyte Esterase 100 H Urine RBC 0 SEEN Urine WBC 0-5 SEEN Ur Squamous Epith Cells 0-5 SEEN Urine Bacteria 1+ Urine Mucus 0 SEEN Ethyl Alcohol < 3.0 Radiography Diagnostic Testing: Clinical Impression(s) from Imaging Studies Head/Neck CTA 11/05/21 14:32 IMPRESSION: Normal CTA Head and neck with contrast. Electronically Signed: Anthony Costello MD at 15:57 EST Tel , Service support , ADDENDUM: 11/05/21 1716 Chest X-Ray 11/05/21 14:35 IMPRESSION: Normal x-ray examination of the chest. Electronically Signed: Anthony Costello MD at 14:52 EST Tel , Service support , Discharge Plan Triage Chief Complaint: Neuro S/Sx Other Complaint: Confusion ED Provider: Morena Tijerina Dx/Rx/DC Orders Clinical Impression: Brain mass, Acute confusion Prescriptions: No Action methotrexate sodium 2.5 mg tablet 15 mg PO QWEEK RF: 0 hydroxychloroquine 200 mg tablet 200 mg PO BID RF: 0 folic acid 400 mcg tablet 0.4 mg PO TID RF: 0 cannabidiol (CBD) 100 mg/mL oral solution 100 mg/mL solution PO .prn RF: 0 prednisone 10 mg tablet 10 mg PO DAILY RF: 0 omega-3 fatty acids 1,000 mg capsule 1,000 mg capsule 1,000 mg PO DAILY RF: 0 Primary Care Provider: Hyacinth Lakhani Referrals: Hyacinth Lakhani DO [Primary Care Provider] - Disposition Disposition: Transfer to Another Type [facility]
--- NOTE | 2021-11-05 14:35 | RAD_ITS ---
STUDY: X-RAY CHEST REASON FOR EXAM: Female, 71 years old. Stroke TECHNIQUE: Single AP portable view of the chest. COMPARISON: None. FINDINGS: The lungs are clear and expanded. There is no demonstrated pleural abnormality. Normal size heart. Normal mediastinum and jhony. Normal visualized pulmonary arteries. Normal visualized aortic arch and descending thoracic aorta. Normal visualized thoracic spine. Normal visualized ribs, clavicles, and shoulders. There is no demonstrated abnormality of the visualized soft tissue structures of the upper abdomen. RAD/Chest 1 View (Portable) IMPRESSION: Normal x-ray examination of the chest. Electronically Signed: Anthony Costello MD at 14:52 EST Tel , Service support ,
[2021-11-05 14:37] LABS: Anion Gap 5 (5-15); BUN 17 mg/dL (7-18); BUN/Creat Ratio 19.7 RATIO (10-20); Calcium,Total 9.4 mg/dL (8.5-10.1); Chloride 107 mmol/L (98-107); Creatinine, Serum 0.86 mg/dL (0.55-1.02); EST Glomerular Filtration Rate 69 mL/min (>60); Est Glom Filt Rate - Afr Amer 83 mL/min (>60); Estimated Creatinine Clearance 46.77 ml/min; Glucose 101 mg/dL (74-106); Potassium 4.2 mmol/L (3.5-5.1); Sodium Level 140 mmol/L (136-145)
[2021-11-05] MEDS: 0.9% Normal Saline 1,000 ML 150 ML IV (14:55)
[2021-11-05 15:28] LABS: Alcohol, Blood (Medical)-Serum < 3.0 mg/dL
[2021-11-05 15:34] LABS: Mucous, Urine 0 SEEN /hpf (<or=2+); Red Blood Cells-Urine 0 SEEN /hpf (0-5)
[2021-11-05 15:37] LABS: Troponin-I HS 4 pg/mL (3.0-54.0)
[2021-11-05 15:52] LABS: Color, Urine Yellow (Yellow); Glucose, Dipstick Normal (Normal); Ketone-Dipstick Negative (Negative); Leukocyte Esterase-Dipstick 100 /ul (Negative); Nitrite-Dipstick Negative (Negative); Occult Blood-Urine Negative /ul (Negative); Protein-Dipstick Negative (Negative); Specific Gravity, Urine 1.015 (1.002-1.030); Urine Bilirubin Dipstick Negative (Negative); Urine Clarity Clear (Clear); Urine Urobilinogen Normal (Normal)
[2021-11-05 16:04] LABS: Bacteria 1+ /hpf (None Seen); Squamous Epithelial Cells - UA 0-5 SEEN /hpf (5-10); White Blood Cells 0-5 SEEN /hpf (0-5)
[2021-11-05] MEDS: dexAMETHasone 10 MG/ML Vial IV (17:36)
--- NOTE | 2021-11-05 17:41 | NURSING ---
CALLED [facility] MAIN TRANSFER LINE. TALKED TO ROBERT. FAXED DEBBIE HAD CAT SCAN TRANSMIT CT
--- NOTE | 2021-11-05 19:25 | ED.RN ---
SPOKE WITH SON,NYLA AGUILAR, AT [phone] ON STATUS OF PT. WAITING ON ROOM TO BE AVAILABLE AT [facility]. WILL CALL WITH UPDATES.
[2021-11-06] VITALS (12 sets, daily range): BP systolic 104–134; BP diastolic 63–90; PULSE 64–80; RESP 14–19; TEMP 36.2–37.1; O2SAT 95–99; BMI 30.4
--- NOTE | 2021-11-06 02:37 | PCM.HP.STD ---
HPI - General General Date of Admission: 11/06/21 HPI Narrative SULEIMAN GAUILAR, is a 71 F with a significant history of rheumatoid arthritis who presents with aphasia and confusion that started around [place] time of 2020. Patient symptoms started after her first cataract surgery. She then had a second cataract surgery and her symptoms even worsened. Her friend who was at the bedside reported that initially they thought it was the effect of anesthesia especially as her symptoms worsened after the second cataract surgery. However her symptoms progressed and patient's friend and his son at [place] became concerned. Patient went to see her PCP on the day of presentation to the ED and patient was referred to the emergency department. At the emergency department patient was found to have a cerebral mass with vasogenic edema. The patient was accepted to [facility] . However there is no bed readily available at [facility] and patient has been waiting for 6 hours. A decision was made for patient to stay at our hospital until a bed becomes available at [facility]. [facility] Medical History Abnormal mammogram Abnormal mammogram of right breast Rheumatoid arthritis Home Medications cannabidiol 100 mg/mL oral solution mg PO .prn ml 09/28/18 [History Last Taken Unknown] folic acid 400 mcg tablet 0.4 mg PO TID tab 09/28/18 [History Last Taken Unknown] hydroxychloroquine 200 mg tablet 200 mg PO BID tab 09/28/18 [History Last Taken Unknown] methotrexate sodium 2.5 mg tablet 15 mg PO QWEEK tab 09/28/18 [History Last Taken Unknown] omega-3 fatty acids 1,000 mg capsule 1,000 mg PO DAILY 09/28/18 [History Last Taken Unknown] prednisone 10 mg tablet 10 mg PO DAILY 09/28/18 [History Last Taken Unknown] Allergy/AdvReac Type Severity Reaction Status Date / Time No Known Allergies Allergy Verified 11/05/21 13:27 Family History Sister Colon cancer Mother Kidney disease Brother Cancer skin cancer with mets Surgical History History of History of left breast biopsy history right eye surgery Social History Smoking Status: Former smoker how long ago did patient quit smokin alcohol intake: current alcohol intake frequency: a few times a month substance use type: does not use ROS ROS Narrative Constitutional: Denies fever, chills, fatigue, anorexia and change in weight Eyes: Denies blurry vision, change in eye color, change in vision, discharge from eye(s), double vision, erythema, eye pain, loss of vision or other HEENT: Denies abnormal hearing, dysphagia, ear pain, epistaxis, headache(s), hearing loss, nasal congestion, nasal discharge, post nasal drip, sinus pressure, sore throat or other Cardiovascular: Denies chest pain or palpitations. Denies dyspnea on exertion, orthopnea and paroxysmal nocturnal dyspnea Respiratory/Chest: Denies cough, excessive phlegm production, shortness of breath with exertion and wheezing Gastrointestinal: Denies abdominal pain, coffee ground emesis, constipation, diarrhea, dyspepsia, hematemesis, hematochezia, loose stools, melena, nausea, vomiting or other Genitourinary: Denies burning urination, difficulty urinating, dysuria, hematuria, nocturia, urinary frequency, urinary hesitancy, urinary incontinence, urinary urgency or other Musculoskeletal: Denies arthralgias, back pain, joint pain, joint stiffness, joint swelling, myalgias, neck pain or other Neurologic: Patient with speech changes; Patient with confusion. Denies abnormal gait, disequilibrium, dizziness, focal weakness, headache(s), numbness, paresthesias, seizure-like activity, seizures, syncope, tingling, tremor(s) or other Psychiatric: Denies anxiety, depression, homicidal ideation, suicidal ideation or other Endocrinology: Denies change in body appearance, cold intolerance, excessive sweating, heat intolerance, polydipsia, polyuria or other Hematologic/Lymphatic: Denies anemia, easy bleeding, easy bruising, lymphadenopathy or other Integumentary: Denies rashes Allergic/Immunologic: Denies rhinitis, hives, eczema, asthma or other Vital Signs Vital Signs Vital Signs: 11/05/21 13:24 11/05/21 14:13 11/05/21 14:21 Temperature 97.1 F L Temperature Source Temporal Pulse Rate 58 L 58 L Respiratory Rate 16 22 H Blood Pressure 133/71 H 95/57 L Blood Pressure Mean 91 69 Pulse Ox 98 98 Oxygen Delivery Method Room Air Room Air Room Air 11/05/21 14:25 11/05/21 16:15 11/05/21 17:18 Temperature Temperature Source Pulse Rate 61 63 66 Respiratory Rate 16 16 20 H Blood Pressure 95/57 L 118/72 127/70 H Blood Pressure Mean 69 87 89 Pulse Ox 95 100 Oxygen Delivery Method Room Air Room Air 11/05/21 18:06 11/05/21 19:04 11/05/21 20:26 Temperature Temperature Source Pulse Rate 73 65 72 Respiratory Rate 18 20 H 14 Blood Pressure 136/66 H 143/76 H 136/84 H Blood Pressure Mean 89 98 101 Pulse Ox 95 97 Oxygen Delivery Method Room Air Room Air 11/05/21 21:00 11/05/21 22:17 11/05/21 22:32 Temperature Temperature Source Pulse Rate 82 81 76 Respiratory Rate 19 H 20 H Blood Pressure 118/73 Blood Pressure Mean 88 Pulse Ox 95 Oxygen Delivery Method 11/05/21 23:10 11/06/21 02:31 Temperature Temperature Source Pulse Rate 85 73 Respiratory Rate 18 19 H Blood Pressure 134/74 H Blood Pressure Mean 94 Pulse Ox Oxygen Delivery Method Weight Weight: 75.296 kg Body Mass Index (BMI) 30.3 Physical Exam Narrative Physical exam: General: Well-nourished, well-developed. Head: Normocephalic, atraumatic, no tenderness Eyes: PERRLA, EOMI ENT, no trauma, moist mucous membranes, no rhinorrhea Neck: Nontender, full range of motion, no spinal tenderness, deformities, step-off CVS: Regular rate and rhythm. S1-S2 present. No murmur, gallop or rub. Respiratory : clear to auscultation bilaterally, chest wall nontender, no wheezing Abdomen: Soft, nontender, nondistended, normal bowel sounds, no masses : Deferred Back: Nontender, no CVA tenderness, no midline spinal tenderness, deformities, step-offs Extremities: Nontender full range of motion, no trauma Skin: Normal color, no trauma, abrasions Neuro: Alert, oriented, cranial nerves II through XII grossly intact. With mild expressive and mild receptive aphasia. No dysmetria with [id number] test and [id number] test. Strength is 5 out of 5 throughout all 4 extremities. Not hyperreflexia with knee jerk and biceps reflexes. Psychiatry: Normal mood. Normal affect. Not depressed. Not anxious. Results Lab / Micro Data Result Diagrams: 11/05/21 13:39 11/05/21 13:39 Labs: Laboratory Results - last 24 hr 11/05/21 13:39: WBC 6.1, RBC 4.43, Hgb 13.4, Hct 41.5, MCV 93.7, MCH 30.2, MCHC 32.3, RDW Std Deviation 55.7 H, RDW Coeff of Julissa 16.3 H, Plt Count 212, MPV 12.1 H, Immature Gran % (Auto) 0.200, Neut % (Auto) 68.6, Lymph % (Auto) 16.8 L, [place] % (Auto) 12.1 H, Eos % (Auto) 2.0, Baso % (Auto) 0.3, Absolute Neuts (auto) 4.2, Absolute Lymphs (auto) 1.03, Nucleated RBC % 0 11/05/21 13:39: PT 12.1, INR 1.0, APTT 25.9 11/05/21 13:39: Sodium 140, Potassium 4.2, Chloride 107, Carbon Dioxide 28.0, Anion Gap 5, BUN 17, Creatinine 0.86, Estim Creat Clear Calc 46.77, Est GFR (MDRD) Af Amer 83, Est GFR (MDRD) Non-Af 69, BUN/Creatinine Ratio 19.7, Glucose 101, Calcium 9.4 11/05/21 13:39: Troponin I High Sens 4 11/05/21 13:39: Ethyl Alcohol < 3.0 11/05/21 15:31: Urine Color Yellow, Urine Clarity Clear, Urine pH 5.0, Ur Specific [place] 1.015, Urine Protein Negative, Urine Glucose (UA) Normal, Urine Ketones Negative, Urine Occult Blood Negative, Urine Nitrite Negative, Urine Bilirubin Negative, Urine Urobilinogen Normal, Ur Leukocyte Esterase 100 H, Urine RBC 0 SEEN, Urine WBC 0-5 SEEN, Ur Squamous Epith Cells 0-5 SEEN, Urine Bacteria 1+, Urine Mucus 0 SEEN Micro: Microbiology 11/05/21 17:31 Nasal Secretion SARS-CoV-2 Antigen (Rapid) - Final Radiology Impression Head/Neck CTA 11/05/21 14:32 IMPRESSION: Normal CTA Head and neck with contrast. Electronically Signed: Anthony Costello MD at 15:57 EST Tel , Service support , ADDENDUM: 11/05/21 1716 Chest X-Ray 11/05/21 14:35 IMPRESSION: Normal x-ray examination of the chest. Electronically Signed: Anthony Costello MD at 14:52 EST Tel , Service support , Assessment & Plan Assessment/Plan (1) Brain mass: (2) Acute confusion: PLAN: Head and neck CTA was independently interpreted and I agree with radiologist impression of suspected peripheral enhancing mass within the anterior left temporal lobe with a large amount of vasogenic edema and with 5 mm of [id number] midline shift. Received Decadron IV in the emergency department. Decadron 4 mg every 6 hours ordered. We will put patient on seizure prophylaxis with Keppra. Chest x-ray was independently interpreted and I agree with radiologist impression of normal x-ray examination of the chest. Urinalysis positive for urine leukocyte esterase. Nitrite was negative. Normal pyuria. Urine bacteria 1+. No urinary symptoms. Awaiting bed at [facility]. Charges/Coding Visit Charges Inpatient E&M: 19591 Init Hosp L2
--- NOTE | 2021-11-06 04:03 | PCS.PANDOC ---
PANDEMIC DOCUMENTATION INITIATED: Date: 06/03/2021 Time: 190
[2021-11-06] MEDS: dexAMETHasone 4 MG Tablet PO ×3 (06:12→18:01)
[2021-11-06] MEDS: levETIRAcetam 500 MG Tablet PO ×2 (08:25→20:40)
[2021-11-06] MEDS: Enoxaparin 40 MG/0.4 ML Syringe SC (08:25)
--- NOTE | 2021-11-06 10:00 | CASEMGMT ---
Per PCU unit secretary, [facility] is 'discharge dependent' for bed availability but states pt is high on their list. Luigi VELOZ CM
--- NOTE | 2021-11-06 11:29 | PCM.PN.HOSP ---
Subjective Subjective Follow-up on vasogenic edema/intracranial mass: Patient was seen and examined. She is confused. Not oriented to self place or time. Still waiting on a bed with [facility] Objective Data Objective Data Vital Signs: Vital Signs Temp Pulse Resp BP Pulse Ox 98.3 F 76 14 105/63 98 11/06/21 10:31 11/06/21 11:02 11/06/21 10:31 11/06/21 10:31 11/06/21 10:31 Oxygen Delivery Method Room Air Weight: 75.1 kg Body Mass Index (BMI) 30.4 Intake & Output: Intake and Output for Last 24 Hours 11/04/21 11/05/21 11/06/21 23:59 23:59 23:59 Intake Total 1000 / 1000 240 / 240 Balance 1000 / 1000 240 / 240 Lab / Micro Data Result Diagrams: 11/05/21 13:39 11/05/21 13:39 Labs: Laboratory Results - last 24 hr 11/05/21 13:39: WBC 6.1, RBC 4.43, Hgb 13.4, Hct 41.5, MCV 93.7, MCH 30.2, MCHC 32.3, RDW Std Deviation 55.7 H, RDW Coeff of Julissa 16.3 H, Plt Count 212, MPV 12.1 H, Immature Gran % (Auto) 0.200, Neut % (Auto) 68.6, Lymph % (Auto) 16.8 L, [place] % (Auto) 12.1 H, Eos % (Auto) 2.0, Baso % (Auto) 0.3, Absolute Neuts (auto) 4.2, Absolute Lymphs (auto) 1.03, Nucleated RBC % 0 11/05/21 13:39: PT 12.1, INR 1.0, APTT 25.9 11/05/21 13:39: Sodium 140, Potassium 4.2, Chloride 107, Carbon Dioxide 28.0, Anion Gap 5, BUN 17, Creatinine 0.86, Estim Creat Clear Calc 46.77, Est GFR (MDRD) Af Amer 83, Est GFR (MDRD) Non-Af 69, BUN/Creatinine Ratio 19.7, Glucose 101, Calcium 9.4 11/05/21 13:39: Troponin I High Sens 4 11/05/21 13:39: Ethyl Alcohol < 3.0 11/05/21 15:31: Urine Color Yellow, Urine Clarity Clear, Urine pH 5.0, Ur Specific [place] 1.015, Urine Protein Negative, Urine Glucose (UA) Normal, Urine Ketones Negative, Urine Occult Blood Negative, Urine Nitrite Negative, Urine Bilirubin Negative, Urine Urobilinogen Normal, Ur Leukocyte Esterase 100 H, Urine RBC 0 SEEN, Urine WBC 0-5 SEEN, Ur Squamous Epith Cells 0-5 SEEN, Urine Bacteria 1+, Urine Mucus 0 SEEN Micro: Microbiology 11/05/21 17:31 Nasal Secretion SARS-CoV-2 Antigen (Rapid) - Final Radiography Diagnostic Testing: Radiology Impression Head/Neck CTA 11/05/21 14:32 IMPRESSION: Normal CTA Head and neck with contrast. Electronically Signed: Anthony Costello MD at 15:57 EST Tel , Service support , ADDENDUM: 11/05/21 1716 Chest X-Ray 11/05/21 14:35 IMPRESSION: Normal x-ray examination of the chest. Electronically Signed: Anthony Costello MD at 14:52 EST Tel , Service support , Physical Exam Narrative Physical exam: General: Alert, confused, Cooperative, No apparent distress, Well developed HEENT: Atraumatic Oral: Moist Mucosa Neck: Supple Lungs: Clear to auscultation Cardiovascular: HS I+II, regular, no murmurs Abdomen: Bowel Sounds Present, Soft, Non Tender Extremities: Bilateral leg edema +1 Assessment & Plan Assessment/Plan (1) Brain mass: (2) Acute confusion: PLAN: 1. Acute vasogenic edema/peripheral enhancing mass in the anterior left temporal lobe with a 5 mm left to right midline shift Awaiting on the bed with the [facility] Continue on po Decadron and Keppra 2. Rheumatoid arthritis, continue methotrexate, hydroxychloroquine 3. DVT prophylaxis with Lovenox subcu Charges/Coding Visit Charges Inpatient E&M: 54268 Subs Hosp L2
--- NOTE | 2021-11-06 11:35 | CASEMGMT ---
MAGDIEL VYAS assessment: Face to Face with patient for initial transition planning/care coordination assessment. Pt with expressive aphasia but her friend, Norma, is at bedside and assists with assessment. MAGDIEL VYAS introduced self and role at [facility], voice understanding. Pt is sitting up on side of bed in no distress on room air. Pt does not seemed confused at this time, she is just unable to get the right words out. Care providers, pharmacy, and demographics verified/updated. Presentation: Pt c/o inability to express self, worse since [place] Admitting dx: Intracranial mass w/ 5mm shift PCP: Lesvia Specialists: Enriqueta, rheumatology; Cayla, eye Preferred Pharmacy: [facility] Insurance: [facility] Prescription Benefit: [facility] Living Will/HPOA: Pt has LW/HPOA and friend states that son, NYLA Mariscal, is HPOA. Pt/friend aware that they are not on file at [facility]. LNOK: NYLA Mariscal, son;HPOA; Norma Haywood, friend Living Arrangements: Pt lives alone with her cat in mobile home and normally able to care for self. Transportation: Pt normally drives self and states no transportation concerns. DME/HHC: Pt has no current DME equipment. Pt has not had HHC or been to SNF. Pt unsure of d/c plan as plan is to transfer pt to [facility] for neurosurg eval d/t mass with shift. Pt is retired. Pt does not smoke cigarettes but occasionally drinks wine. Pt/friend voice no further concerns/needs. CM to follow for any further discharge planning/needs. Advised pt/friend to ask for CM if any further questions/concerns/needs arise, voices understanding. Pt Goal: Home s/p neurosurg eval/intervention Plan: Home s/p neurosurg eval/intervention [place] MAGDIEL VYAS
[2021-11-06] MEDS: Hydroxychloroquine 200 MG Tablet PO (18:08)
[2021-11-06] MEDS: Dorzolamide HCL/Timolol 10 ml Bottle 1 DRP EACH EYE (20:39)
[2021-11-06] MEDS: BRIMONIDINE 0.2% 5ML BOTTLE 1 DRP EACH EYE (20:40)
[2021-11-07] VITALS (9 sets, daily range): BP systolic 87–116; BP diastolic 45–69; PULSE 48–62; RESP 16–22; TEMP 36–36.8; O2SAT 95–100
[2021-11-07] MEDS: dexAMETHasone 4 MG Tablet PO ×3 (00:10→12:00)
[2021-11-07] MEDS: Hydroxychloroquine 200 MG Tablet PO (08:21)
[2021-11-07] MEDS: Folic Acid 1 MG Tablet PO (08:21)
[2021-11-07] MEDS: BRIMONIDINE 0.2% 5ML BOTTLE 1 DRP EACH EYE (09:26)
[2021-11-07] MEDS: levETIRAcetam 500 MG Tablet PO (09:29)
[2021-11-07] MEDS: Enoxaparin 40 MG/0.4 ML Syringe SC (09:32)
[2021-11-07] MEDS: Dorzolamide HCL/Timolol 10 ml Bottle 1 DRP EACH EYE (09:35)
[2021-11-07] MEDS: Latanoprost 0.005% 1 Bottle 1 DRP EACH EYE (09:37)
--- NOTE | 2021-11-07 13:18 | PCM.PN.HOSP ---
Subjective Subjective Follow-up on vasogenic edema/intracranial mass: Patient was seen and examined. Patient remains confused. No acute events overnight. Still waiting on a bed to the [facility]. Discussed with Dr. Grewal who is no more on-call; discussed with on-call neurosurgery who recommended expedited transfer. Waiting on transfer line and bed assignment. Objective Data Objective Data Vital Signs: Vital Signs Temp Pulse Resp BP Pulse Ox 97.6 F L 56 L 22 H 91/62 97 11/07/21 10:37 11/07/21 11:45 11/07/21 10:37 11/07/21 10:37 11/07/21 10:37 Oxygen Delivery Method Room Air Weight: 75.1 kg Body Mass Index (BMI) 30.4 Intake & Output: Intake and Output for Last 24 Hours 11/05/21 11/06/21 11/07/21 23:59 23:59 23:59 Intake Total 1000 / 1000 1210 / 1510 990 / 990 Balance 1000 / 1000 1210 / 1510 990 / 990 Lab / Micro Data Result Diagrams: 11/05/21 13:39 11/05/21 13:39 Micro: Microbiology 11/05/21 17:31 Nasal Secretion SARS-CoV-2 Antigen (Rapid) - Final Physical Exam Narrative Physical exam: General: Alert, confused, Cooperative, No apparent distress, Well developed HEENT: Atraumatic Oral: Moist Mucosa Neck: Supple Lungs: Clear to auscultation Cardiovascular: HS I+II, regular, no murmurs Abdomen: Bowel Sounds Present, Soft, Non Tender Extremities: Bilateral leg edema +1 Assessment & Plan Assessment/Plan (1) Brain mass: (2) Acute confusion: PLAN: 1. Acute vasogenic edema/peripheral enhancing mass in the anterior left temporal lobe with a 5 mm left to right midline shift Patient needs emergent neurosurgery evaluation -discussed with [facility] neurosurgery team Awaiting on the bed with the [facility] Continue on po Decadron and Keppra 2. Rheumatoid arthritis, continue methotrexate, hydroxychloroquine 3. DVT prophylaxis with Lovenox subcu Charges/Coding Visit Charges Inpatient E&M: 24208 Subs Hosp L2
--- NOTE | 2021-11-07 14:12 | PCM.DC ---
Discharge Instructions Diet Discharge Diet: No restrictions Activity Discharge Activity: Return to Normal Activity Follow Up Care Test Results: Test results from this visit will be discussed in further detail at your follow-up appointment, if applicable. Discharge Plan Admission Admit Date/Time: 11/06/21 02:31 Primary Reason for Your Visit: Acute intracranial mass/vasogenic edema Attending Provider: Siobhan Sky Primary Care Provider: Hyacinth Lakhani Discharge Orders/Prescriptions Prescriptions: No Action methotrexate sodium 2.5 mg tablet 15 mg PO QWEEK RF: 0 hydroxychloroquine 200 mg tablet 200 mg PO DAILY RF: 0 latanoprost 0.005 % drops 1 drp EACH EYE DAILY RF: 0 brimonidine 0.2 % drops 1 drp EACH EYE BID RF: 0 dorzolamide-timolol 22.3-6.8 mg/mL drops 1 drp EACH EYE BID RF: 0 folic acid 800 mcg Tablet 0.8 mg PO DAILY RF: 0 Refresh 1 % Drops, Liquid Gel 1 drp EACH EYE TID PRN (Reason: Dry Eyes) RF: 0 Referrals / Follow Up: Hyacinth Lakhani DO [Primary Care Provider] - Disposition Disposition (needs filled in before D/C Order can be placed): Acute Care Hospital
--- NOTE | 2021-11-07 14:13 | PCM.DC.SUM ---
Providers Date of Admission: 11/06/21 Date of Discharge: 11/07/21 Primary Care Physician: Dr. Hyacinth Lakhani DO Reason For Visit: INTRACRANIAL MASS Diagnosis Discharge Diagnosis (1) Brain mass: Status: Acute Code(s): G93.89 - Other specified disorders of brain (2) Acute confusion: Status: Acute Code(s): R41.0 - Disorientation, unspecified Medications at Discharge Home Medications hydroxychloroquine 200 mg tablet 200 mg PO DAILY tab 09/28/18 methotrexate sodium 2.5 mg tablet 15 mg PO QWEEK tab 09/28/18 brimonidine 1 drp EACH EYE BID 11/06/21 carboxymethylcellulose sodium [Refresh] 1 drp EACH EYE TID PRN 11/06/21 dorzolamide-timolol 1 drp EACH EYE BID 11/06/21 folic acid 0.8 mg PO DAILY 11/06/21 latanoprost 1 drp EACH EYE DAILY 11/06/21 Hospital Course Operations None Procedures None Summary of Care Provided Minutes Spent on Discharge: 35 Hospital Course: 71-year-old female with past medical history of rheumatoid arthritis who presented with expressive aphasia as well as confusion that has been ongoing for more than 2 weeks. History was given by patient's friend. Patient was noted to have episodes of confusion after her cataract surgery. This was worsening after his second surgery. Initially they thought it was due to anesthesia. Patient went to see her primary care doctor who referred her to the emergency room. Work-up in the emergency room with CTA of the head and neck showed cerebral mass with vasogenic edema and midline shift. Patient was accepted by the [facility]. There were however no beds in she was admitted to the progressive care unit. Patient remained off oxygen. Her vitals were stable. She continued to be confused. She needed to be redirected all the time. Physical Exam Narrative Physical exam: General: Alert, confused, oriented only to self, cooperative, No apparent distress, Well developed HEENT: Atraumatic Oral: Moist Mucosa Neck: Supple Lungs: Clear to auscultation Cardiovascular: HS I+II, regular, no murmurs Abdomen: Bowel Sounds Present, Soft, Non Tender Extremities: Bilateral leg edema +1 TRAVEL REGISTERED NURSE NICU: Able to move all 4 extremities, normal tone Weight / BMI Weight Weight: 75.1 kg Body Mass Index (BMI) 30.4 ABG / Lab / Microbiology Data Result Diagrams: 11/05/21 13:39 11/05/21 13:39 Microbiology: Microbiology 11/05/21 17:31 Nasal Secretion SARS-CoV-2 Antigen (Rapid) - Final D/C Instructions Discharge Diet: No restrictions Meaningful Use Info Meaningful Use Diagnoses (Choose all that apply): None applicable Discharge Plan Admission Admit Date/Time: 11/06/21 02:31 Primary Reason for Your Visit: Acute intracranial mass/vasogenic edema Attending Provider: Siobhan Sky Primary Care Provider: Hyacinth Lakhani Discharge Orders/Prescriptions Prescriptions: No Action methotrexate sodium 2.5 mg tablet 15 mg PO QWEEK RF: 0 hydroxychloroquine 200 mg tablet 200 mg PO DAILY RF: 0 latanoprost 0.005 % drops 1 drp EACH EYE DAILY RF: 0 brimonidine 0.2 % drops 1 drp EACH EYE BID RF: 0 dorzolamide-timolol 22.3-6.8 mg/mL drops 1 drp EACH EYE BID RF: 0 folic acid 800 mcg Tablet 0.8 mg PO DAILY RF: 0 Refresh 1 % Drops, Liquid Gel 1 drp EACH EYE TID PRN (Reason: Dry Eyes) RF: 0 Referrals / Follow Up: Hyacinth Lakhani DO [Primary Care Provider] - Disposition Disposition (needs filled in before D/C Order can be placed): Acute Care Hospital Charges/Coding Visit Charges Inpatient E&M: 32300 Disch Hosp
--- NOTE | 2021-11-07 14:19 | NURSING ---
called son dj to let him know of visitiation policy and bed at [facility] son will arrive on thursday to be with her wants md to call him day or night if needed will pass on to nurse at [facility]
--- NOTE | 2021-11-07 14:44 | NURSING ---
report called to [facility] Ruthann sevilla
== END 2021-11-07 15:02 | disposition short-term general hospital (02) | DRG 70 ==
LOC: ED 20:26 → PCU 11-06 02:45
PROVIDERS: Admitting Provider Hospitalist; Emergency Provider Emergency Medicine; PCP Internal Medicine; Visit Provider Internal Medicine
DX: G93.89 Other specified disorders of brain (principal); G93.6 Cerebral edema; R47.01 Aphasia; M06.9 Rheumatoid arthritis, unspecified; R41.0 Disorientation, unspecified; Z87.891 Personal history of nicotine dependence
CPT/HCPCS: 70496; 70498; 71045; 80048; 81001; 82077; 84484; 85025; 85610; 85730; 87426; 92523; 93005; 99284; J7030; Q9967; A4216

== ENCOUNTER 2021-12-10 09:28 | Outpatient (CLI) | payer MEDICARE, SELFPAY ==
[2021-12-10 10:39] VITALS: PULSE 63; RESP 16
== END 2021-12-10 23:59 | disposition home or self-care (01) ==
LOC: PSN 09:36
PROVIDERS: PCP Internal Medicine; Referring Provider Internal Medicine Hematology & Oncology; Visit Provider Internal Medicine Hematology & Oncology
DX: C71.9 Malignant neoplasm of brain, unspecified (principal)
CPT/HCPCS: 94642